=== PATIENT | female | born 1970 | race Caucasian/White ===

== ENCOUNTER 2017-01-31 08:39 | Observation (INO) | payer OTHER ==
--- NOTE | 2017-01-31 08:55 | PDOC ---
History of Present Illness - History of Present Illness Initial Comments: 01/31/17 09:27 The pt is a 46 year old female with a PMH of HTN, IBS, ischemic bowel as per pt , history of multiple CT abdomen. She presents to ED complaining of abdominal pain, vomiting and diarrhea for 3 days. The pain is located in epigastrium, radiating to RLQ, constant, 8/10, alleviated by lying on the side, aggravated by food. She also reports non bilious, non bloody vomiting and watery diarrhea, no blood, no melena. She denies fever, chills. The pt denies chest pain, palpitations, SOB, cough. She denies dysuria, increased frequency, urgency. She stopped taking her medications 3 months ago because of insurance issues. GI: Dr. Db Mera PCP: Dr. Nora Sierra <Bailee Navarro - Last Filed: 01/31/17 18:38> <Kurt Arora - Last Filed: 01/31/17 20:19> - General Chief Complaint: Pain Stated Complaint: ABD PAIN, NAUSEA, VOMITING Time Seen by Provider: 01/31/17 08:55 Past History - Past Medical History GI Disorders: Yes (IBS) HTN: Yes - Surgical History Abdominal Surgery: Yes (PARTIAL HTSTERECTOMY) Orthopedic Surgery: Yes (ARTHROSCOPY R KNEE) - Immunization History Immunization Up to Date: Yes - Psycho/Social/Smoking Cessation Hx Anxiety: No Suicidal Ideation: No Smoking Status: No Smoking History: Never smoked Number of Cigarettes Smoked Daily: 0 Cigars Per Day: 0 Hx Alcohol Use: Yes (SOCIAL) Drug/Substance Use Hx: No Substance Use Type: None Hx Substance Use Treatment: No <Bailee Navarro - Last Filed: 01/31/17 18:38> <Kurt Arora - Last Filed: 01/31/17 20:19> - Past Medical History Allergies/Adverse Reactions: Allergies Allergy/AdvReac Type Severity Reaction Status Date / Time morphine Allergy Vomiting Verified 01/31/17 08:44 Nuts Allergy Intermediate Swelling Uncoded 01/31/17 08:44 Home Medications: Ambulatory Orders Azathioprine 5 tab PO DAILY 08/02/16 Hydrochlorothiazide 25 mg PO DAILY 08/02/16 Lipase/Protease/Amylase [Paula Alfonso 5,000 Units Capsule] 1 each PO ACHS 08/02/16 Lisinopril 10 mg PO DAILY 08/02/16 Lubiprostone [Amitiza] 24 mcg PO TID 08/02/16 Pantoprazole Sodium 40 mg PO DAILY 08/02/16 Polyethylene Glycol 3350 [Miralax (For Daily Use) -] 17 gm PO BID 08/02/16 Review of Systems - Review of Systems Able to Perform ROS?: Yes Comments:: 01/31/17 09:35 REVIEW OF SYSTEMS CONSTITUTIONAL: Absent: fever, chills, diaphoresis, generalized weakness, malaise, loss of appetite, weight change HEENT: Absent: rhinorrhea, nasal congestion, throat pain, throat swelling, difficulty swallowing, mouth swelling, ear pain, eye pain, visual changes CARDIOVASCULAR: Absent: chest pain, syncope, palpitations, irregular heart rate, lightheadedness , peripheral edema RESPIRATORY: Absent: cough, shortness of breath, dyspnea with exertion, orthopnea, wheezing, stridor, hemoptysis GASTROINTESTINAL: abdominal pain, abdominal distension, nausea, vomiting, diarrhea, Absent: constipation, melena, hematochezia GENITOURINARY: Absent: dysuria, frequency, urgency, hesitancy, hematuria, flank pain, genital pain MUSCULOSKELETAL: Absent: myalgia, arthralgia, joint swelling, back pain, neck pain SKIN: Absent: rash, itching, pallor NEUROLOGIC: Absent: headache, focal weakness or paresthesias, dizziness, unsteady gait, seizure, mental status changes, bladder or bowel incontinence PSYCHIATRIC: Absent: anxiety, depression, suicidal or homicidal ideation, hallucinations. Is the patient limited [place] proficient: No <Bailee Navarro - Last Filed: 01/31/17 18:38> *Physical Exam - Vital Signs Last Vital Signs Temp Pulse Resp BP Pulse Ox 97.5 F L 90 20 132/83 97 01/31/17 08:41 01/31/17 08:41 01/31/17 08:41 01/31/17 08:41 01/31/17 08:41 - Physical Exam Comments: 01/31/17 09:38 GENERAL: The patient is awake, alert, and fully oriented, in no acute distress. HEAD: Normal with no signs of trauma. EYES: PERRL, extraocular movements intact, sclera anicteric, conjunctiva clear. No ptosis. ENT: Ears normal, nares patent, oropharynx clear without exudates, moist mucous membranes. NECK: Trachea midline, full range of motion, supple. LUNGS: Breath sounds equal, clear to auscultation bilaterally, no wheezes, no crackles, no accessory muscle use. HEART: Regular rate and rhythm, S1, S2 without murmur, rub or gallop. ABDOMEN: Obese, soft, tender to palpation in epigastrium and mild tenderness in RLQ, nondistended, normoactive bowel sounds, no guarding, no rebound, no hepatosplenomegaly, no masses. EXTREMITIES: 2+ pulses, warm, well-perfused, no edema. NEUROLOGICAL: Normal speech, no facial asymmetry, motor 5/5, gait not observed. PSYCH: Normal mood, normal affect. SKIN: Warm, dry, normal turgor, no rashes, tattoo in upper back. <Bailee Navarro - Last Filed: 01/31/17 18:38> - Vital Signs Last Vital Signs Temp Pulse Resp BP Pulse Ox 97.5 F L 64 18 137/89 100 01/31/17 08:41 01/31/17 18:08 01/31/17 18:08 01/31/17 18:08 01/31/17 18:08 <Kurt Arora - Last Filed: 01/31/17 20:19> ED Treatment Course - LABORATORY CBC & Chemistry Diagram: 01/31/17 09:42 01/31/17 09:42 <Bailee Navarro - Last Filed: 01/31/17 18:38> - LABORATORY CBC & Chemistry Diagram: 01/31/17 09:42 01/31/17 09:42 - ADDITIONAL ORDERS Additional order review: Laboratory Results 01/31/17 01/31/17 01/31/17 13:41 10:31 10:31 Sodium Potassium Chloride Carbon Dioxide Anion Gap BUN Creatinine Creat Clearance w eGFR Random Glucose Lactic Acid 0.278 L Calcium Total Bilirubin AST ALT Alkaline Phosphatase Creatine Kinase CK-MB (CK-2) Troponin I C-Reactive Protein Total Protein Albumin Lipase Serum , Qual Negative Urine Color Ltyellow Urine Appearance Clear Urine pH 5.0 Ur Specific [place] 1.020 Urine Protein Negative Urine Glucose (UA) Negative Urine Ketones Negative Urine Blood Negative Urine Nitrite Negative Urine Bilirubin Negative Urine Urobilinogen Negative Ur Leukocyte Esterase Negative 01/31/17 01/31/17 01/31/17 09:42 09:42 09:42 Sodium 139 Potassium 3.6 Chloride 103 Carbon Dioxide 25 Anion Gap 11 BUN 14 D Creatinine 1.0 Creat Clearance w eGFR 59.18 Random Glucose 80 Lactic Acid Calcium 8.6 Total Bilirubin 0.5 D AST 14 L ALT 23 D Alkaline Phosphatase 114 D Creatine Kinase 177 CK-MB (CK-2) 2.041 Troponin I < 0.02 C-Reactive Protein 0.7 H D Total Protein 6.9 Albumin 3.6 Lipase 126 Serum , Qual Urine Color Urine Appearance Urine pH Ur Specific [place] Urine Protein Urine Glucose (UA) Urine Ketones Urine Blood Urine Nitrite Urine Bilirubin Urine Urobilinogen Ur Leukocyte Esterase 01/31/17 09:42 RBC 4.46 MCV 93.8 MCHC 34.0 RDW 14.1 MPV 9.1 Neutrophils % 77.2 Lymphocytes % 10.6 D Monocytes % 10.4 H Eosinophils % 1.3 D Basophils % 0.5 - Medications Given in the ED: ED Medications Discontinued Medications Generic Name Dose Route Start Last Admin Trade Name Freq PRN Reason Stop Dose Admin Acetaminophen 650 mg 01/31/17 19:22 01/31/17 19:39 Tylenol - PO 01/31/17 19:23 650 mg ONCE ONE Administration Hydromorphone HCl 0.5 mg 01/31/17 10:45 01/31/17 11:55 Dilaudid Injection - IVPUSH 01/31/17 10:46 0.5 mg ONCE ONE Administration Hydromorphone HCl 0.5 mg 01/31/17 18:19 01/31/17 18:44 Dilaudid Injection - IVPB 01/31/17 18:20 0.5 mg ONCE ONE Administration Sodium Chloride 1,000 mls @ 1,000 mls/hr 01/31/17 12:55 01/31/17 13:33 Normal Saline - IV 01/31/17 13:54 1,000 mls/hr ONCE ONE Administration Ondansetron HCl 4 mg 01/31/17 10:45 01/31/17 11:55 Zofran Injection IVPUSH 01/31/17 10:46 4 mg ONCE ONE Administration Ondansetron HCl 4 mg 01/31/17 13:33 01/31/17 13:50 Zofran Injection IVPUSH 01/31/17 13:34 4 mg ONCE ONE Administration Ondansetron HCl 4 mg 01/31/17 18:14 01/31/17 18:43 Zofran Injection IVPUSH 01/31/17 18:15 4 mg ONCE ONE Administration <Kurt Arora - Last Filed: 01/31/17 20:19> Medical Decision Making - Medical Decision Making 01/31/17 10:49 The pt is a 46 year old female who present with similar complaints as last year , abdominal pain, N/V, diarrhea. Differential diagnosis include GERD, gastritis , gastric ulcer, duodenal ulcer, pancreatitis, colitis, IBS, ACS. WE ordered CBC, CMP, UA, US abdomen, Zofran, Dilaudid IV. 01/31/17 11:03 No elevated WBC, anemia, elevated lipase, liver enzymes. 01/31/17 15:[address] Ace. Patient has been treated for mesenteric ischemia in the past. He recommends checking lactate, ESR, CRP, and CTA abdomen. ESR and CRP elevated, LA nl, waiting tor CTA 01/31/17 15:33 US abdomen: hepatomegaly, fatty liver. Waiting for CTA results. 01/31/17 18:38 CTa results reviewed and discussed with Dr. Mina and Andreas. Dr Johns will come to assess the pt. Possible admission. <Bailee Navarro - Last Filed: 01/31/17 18:38> *DC/Admit/Observation/Transfer <Bailee Navarro - Last Filed: 01/31/17 18:38> - Discharge Dispostion Admit: Yes <Kurt Arora - Last Filed: 01/31/17 20:19> Diagnosis at time of Disposition: Enteritis, Mesenteric ischemia - Discharge Dispostion Condition at time of disposition: Fair
[2017-01-31 10:25] LABS: BASOPHIL 0.5 % (0-2.0); EOSINOPHIL 1.3 % (0-4.5); MCH 31.9 pg (25.7-33.7); MEAN CELL VOLUME 93.8 fl (80-96); MEAN PLT VOLUME 9.1 fl (7.5-11.1); NEUTROPHILS 77.2 % (42.8-82.8); PLATELET COUNT 157 K/MM3 (134-434); RDW 14.1 % (11.6-15.6); WHITE BLOOD COUNT 5.1 K/mm3 (4.0-10.0)
[2017-01-31 10:40] LABS: ALBUMIN 3.6 g/dl (3.4-5.0); BILIRUBIN,TOTAL 0.5 mg/dL (0.2-1.0); CALCIUM 8.6 mg/dL (8.5-10.1); TOT PROT 6.9 g/dl (6.4-8.2)
[2017-01-31] MEDS ORDERED: ONDANSETRON 4 MG/2 ML VIAL IVPUSH ONE ×3 (10:45→18:14)
[2017-01-31] MEDS ORDERED: HYDROmorphone HCL CARPU-JECT 1 MG/1 ML DISP.SYRIN IVPUSH ONE (10:45)
--- NOTE | 2017-01-31 10:48 | PDOC ---
Attending Attestation - Resident Resident Name: Bailee Navarro - ED Attending Attestation I have performed the following: I have examined & evaluated the patient, The case was reviewed & discussed with the resident, I agree w/resident's findings & plan, Exceptions are as noted - HPI HPI: 01/31/17 10:46 46-year-old female with history of chronic abdominal pain, had full workup with Dr. Ace, was being treated successfully for IBS but ran out of meds 3 months ago, now presents with one month of progressive recurrence of her abdominal complaints acutely worsening over the last 3 days. - Physicial Exam PE: 01/31/17 10:47 vital signs stable Well-appearing Soft and nondistended, discomfort to palpation diffusely but greatest in the left abdomen, no guarding or rebound. - Medical Decision Making 01/31/17 10:47 Patient seen and evaluated with the resident. I agree with the overall evaluation, assessment, and management with the following summary of visit: 46-year-old female with diagnosis of IBS presents with recurrence of her chronic pain in the setting of running out of her medications 3 months ago. Well -appearing, vital signs are normal, no concerning findings on physical exam. Will check basic labs and gallbladder ultrasound Given this is identical to her previous syndrome, will avoid CT imaging in this young woman Pain control, nausea control Reassess, discuss disposition with Dr. Ace 01/31/17 12:56 Labs wnl, no leukocytosis or anion gap elevation. UA clear. Discussed with Dr. Ace. Patient has been treated for presumed mesenteric ischemia in the past, raising concern for same. Recommends checking lactate, esr /crp, and CTA abdomen. Will reassess after above workup. 01/31/17 16:22 CTA abdomen with some mention of wall thickening, ? celiac artery irregularity, ? renal perfusion. ESR/CRP/Lactate normal. Will discuss dispo with Dr. Ace.
--- NOTE | 2017-01-31 11:05 | EKG ---
Test Reason : Blood Pressure : / mmHG Vent. Rate : 053 BPM Atrial Rate : 053 BPM P-R Int : 208 ms QRS Dur : 092 ms QT Int : 434 ms P-R-T Axes : 038 013 025 degrees QTc Int : 407 ms SINUS BRADYCARDIA MINIMAL VOLTAGE CRITERIA FOR LVH, MAY BE NORMAL VARIANT BORDERLINE ECG WHEN COMPARED WITH ECG OF 02-AUG-2016 10:32, NO SIGNIFICANT CHANGE WAS FOUND Confirmed by COLLIN HICKS, TRE ([id number]) on 01/31/2017 11:05:35 AM Referred By: Confirmed By:TRE POLANCO MD
[2017-01-31 11:32] LABS: URINE APPEARANCE CLEAR; URINE BILIRUBIN NEGATIVE (NEGATIVE); URINE BLOOD NEGATIVE (NEGATIVE); URINE COLOR LTYELLOW; URINE GLUCOSE (UA) NEGATIVE (NEGATIVE); URINE KETONE NEGATIVE (NEGATIVE); URINE LEUK ESTERASE NEGATIVE (NEGATIVE); URINE NITRITE NEGATIVE (NEGATIVE); URINE PROTEIN NEGATIVE (NEGATIVE); URINE UROBILINOGEN NEGATIVE E.U./dl (0.2-1.0)
[2017-01-31] MEDS ORDERED: ONDANSETRON 4 MG/2 ML VIAL ONE ×3 (11:45→18:27)
[2017-01-31] MEDS ORDERED: HYDROmorphone HCL CARPU-JECT 1 MG/1 ML DISP.SYRIN ONE ×2 (11:45→18:26)
[2017-01-31 11:52] LABS: TROPONIN I < 0.02 ng/ml (0.00-0.05)
[2017-01-31] MEDS ORDERED: SODIUM CHLORIDE 1,000 ML IV ONE (12:55)
[2017-01-31 14:23] LABS: C-REACTIVE PROTEIN 0.7 MG/DL (0.00-0.3)
[2017-01-31] MEDS ORDERED: HYDROmorphone HCL CARPU-JECT 1 MG/1 ML DISP.SYRIN IVPB ONE (18:19)
[2017-01-31] MEDS ORDERED: DEXTROSE 5%-0.45% SALINE 1,000 ML IV SCH (18:30)
[2017-01-31] MEDS ORDERED: ACETAMINOPHEN 325 MG TABLET (FP) PO ONE (19:22)
[2017-01-31] MEDS ORDERED: ACETAMINOPHEN 325 MG TABLET (FP) ONE (19:37)
[2017-01-31] MEDS ORDERED: METRONIDAZOLE 500 MG PREMIXED 100 ML IVPB ONE ×2 (19:46→20:23)
[2017-01-31] MEDS ORDERED: CEFTRIAXONE 1 GM in DEXTROSE 5%-WATER - 50 ML IVPB ONE (19:46)
[2017-01-31] MEDS ORDERED: LACTATED RINGERS SOLUTION 1,000 ML IV SCH (20:00)
--- NOTE | 2017-01-31 20:12 | PN ---
<Calli Sloan - Last Filed: 01/31/17 20:11> Teaching Attending Note Name of Resident: Danny Cotton <Sue Vasquze - Last Filed: 02/18/17 19:54> Teaching Attending Note ATTENDING PHYSICIAN STATEMENT I saw and evaluated the patient. I reviewed the resident's note and discussed the case with the resident. I agree with the resident's findings and plan as documented. SUBJECTIVE: 46 yo F presents with abdominal pain, nausea, vomiting and diarrhea for 3 days. Patient states she has constant sharp and stabbing abdominal pain rated at 8/ 10. Patient states her insurance lapsed so she went off of her medications for her IBS. She states her last colonoscopy and endoscopy were March of 2016 and they had no acute findings. Patient denies hematochezia. She states that she has mild relief immediately after a BM but the pain returns after approximately 2 minutes. Patient denies problems urinating. Denies chest pain, palpitations, headache, fever, chills and cough. PMHx: HTN, IBS, ischemic bowel as per pt, history of multiple CT abdomen Allergies: Nuts, Morphine OBJECTIVE: Last Vital Signs Temp Pulse Resp BP Pulse Ox 97.9 F 64 18 137/89 100 01/31/17 18:00 01/31/17 18:08 01/31/17 18:08 01/31/17 18:08 01/31/17 18:08 GENERAL: Awake, alert, and fully oriented, in no acute distress HEENT: Atraumatic. PERRLA, EOMI. Moist mucosa. No JVD LUNGS: No distress, speaks full sentences, clear to auscultation bilaterally HEART: Regular rate and rhythm, normal S1 and S2, no murmurs, rubs or gallops, peripheral pulses normal and equal bilaterally. ABDOMEN: Soft, tender in upper quadrants and left lower quadrant, normoactive bowel sounds. No guarding, no rebound. No masses EXTREMITIES: Normal inspection, Normal range of motion, no edema. No clubbing or cyanosis. NEUROLOGICAL: Cranial nerves II through XII grossly intact. Normal speech, normal gait, no focal sensorimotor deficits SKIN: Warm, Dry, normal turgor, no rashes or lesions noted. CBCD WBC 5.1 K/mm3 (4.0-10.0) 01/31/17 09:42 RBC 4.46 M/mm3 (3.60-5.2) 01/31/17 09:42 Hgb 14.2 GM/dL (10.7-15.3) D 01/31/17 09:42 Hct 41.8 % (32.4-45.2) 01/31/17 09:42 MCV 93.8 fl (80-96) 01/31/17 09:42 MCHC 34.0 g/dl (32.0-36.0) 01/31/17 09:42 RDW 14.1 % (11.6-15.6) 01/31/17 09:42 Plt Count 157 K/MM3 (134-434) 01/31/17 09:42 MPV 9.1 fl (7.5-11.1) 01/31/17 09:42 CMP Sodium 139 mmol/L (136-145) 01/31/17 09:42 Potassium 3.6 mmol/L (3.5-5.1) 01/31/17 09:42 Chloride 103 mmol/L (98-107) 01/31/17 09:42 Carbon Dioxide 25 mmol/L (21-32) 01/31/17 09:42 Anion Gap 11 (8-16) 01/31/17 09:42 BUN 14 mg/dL (7-18) D 01/31/17 09:42 Creatinine 1.0 mg/dL (0.55-1.02) 01/31/17 09:42 Creat Clearance w eGFR 59.18 (>60) 01/31/17 09:42 Calcium 8.6 mg/dL (8.5-10.1) 01/31/17 09:42 Total Bilirubin 0.5 mg/dL (0.2-1.0) D 01/31/17 09:42 AST 14 U/L (15-37) L 01/31/17 09:42 ALT 23 U/L (12-78) D 01/31/17 09:42 Alkaline Phosphatase 114 U/L (45-117) D 01/31/17 09:42 Total Protein 6.9 g/dl (6.4-8.2) 01/31/17 09:42 Albumin 3.6 g/dl (3.4-5.0) 01/31/17 09:42 ASSESSMENT AND PLAN: 1.) Abdominal pain and diarrhea most likely secondary to IBS/ medical records document possible Crohns -NPO -IVF -Flagyl and Ceftriaxone -Prednisone 40 mg daily -Protonix -Continue home meds -GI consult in AM -Follow stool cultures and gram stain -Dilaudid .5 mg Q 6 hours PRN DVT ppx -Admit to Med Surg Documentation prepared by Sue Vasquez, acting as medical technologist chief for Calli Sloan M.D.
[2017-01-31] MEDS ORDERED: CEFTRIAXONE 50 ML ONE (20:23)
--- NOTE | 2017-01-31 21:06 | HP ---
Addendum entered and electronically signed by Danny Cotton RES 02/01/17 06:52 : Differential diagnosis also include Crohn's in the view of prior documents. -prednisone 40 mg qd Original Note: CHIEF COMPLAINT: abd pain PCP: Dr. Melendez; GI: Dr. Ace HISTORY OF PRESENT ILLNESS: 46 y/o F w/PMH of HTN, IBS presents to ER with abd pain x 3 days. Pain is in across upper abd, worse with food, alleviated with going into a colder environment/setting, is 10/10 at its worst (for a few seconds), then comes down to 7-8/10 for 3 min. The pain has been occurring 3-4x/day over last three days. Pain is also associated with feeling flush. She has c/o 2 episodes of vomiting over the last 2 days. Both episodes had non-bloody, non-bilious vomiting. She has also had diarrhea for the last 3 days which is watery, and non -bloody. She states she has had this type of pain before and has been hospitalized 3 times in the past year for this kind of pain. Denies weight loss. She has been seeing Dr. Ace and has had multiple EGD/Colonoscopies. Latest EGD & colonoscopy was last year (March 2016) and no pathology was noted as per pt. She says UC and crohns have been ruled out in the past and she has been diagnosed with IBS. She has not had her medications for the last 3 months because of insurance issues but was finally able to work out insurance and got her medications for the first time yesterday in 3 months and took them as prescribed yesterday. Currently she feels "much better". She denies CP, SOB. Zenpep is listed as a home med, which she says was stopped by Dr. Ace and she is no longer taking this medication. ER course was notable for: (1) CTA abd, US abd (2) (3) PAST MEDICAL HISTORY: HTN, IBS PAST SURGICAL HISTORY: Partial hysterectomy, R knee arthroscopy Social History: Smoking: denies Alcohol: socially Drugs: denies Family History: HTN but no GI medical history in family. Allergies morphine Allergy (Verified 01/31/17 08:44) Vomiting Nuts Allergy (Intermediate, Uncoded 01/31/17 08:44) Swelling HOME MEDICATIONS: Home Medications Medication Instructions Recorded Azathioprine 5 tab PO DAILY 08/02/16 Hydrochlorothiazide 25 mg PO DAILY 08/02/16 Lisinopril 10 mg PO DAILY 08/02/16 Lubiprostone [Amitiza] 24 mcg PO TID 08/02/16 Pantoprazole Sodium 40 mg PO DAILY 08/02/16 Polyethylene Glycol 3350 [Miralax 17 gm PO BID 08/02/16 (For Daily Use) -] REVIEW OF SYSTEMS CONSTITUTIONAL: Absent: fever, chills, diaphoresis, generalized weakness, malaise, loss of appetite, weight change HEENT: Absent: rhinorrhea, nasal congestion, throat pain, throat swelling, difficulty swallowing, mouth swelling, ear pain, eye pain, visual changes CARDIOVASCULAR: Absent: chest pain, syncope, palpitations, irregular heart rate, lightheadedness , peripheral edema RESPIRATORY: Absent: cough, shortness of breath, dyspnea with exertion, orthopnea, wheezing, stridor, hemoptysis GASTROINTESTINAL: abd pain, nausea, vomiting, diarrhea Absent: abdominal distension, constipation, melena, hematochezia GENITOURINARY: Absent: dysuria, frequency, urgency, hesitancy, hematuria, flank pain, genital pain MUSCULOSKELETAL: Absent: myalgia, arthralgia, joint swelling, back pain, neck pain SKIN: Absent: rash, itching, pallor HEMATOLOGIC/IMMUNOLOGIC: Absent: easy bleeding, easy bruising, lymphadenopathy, frequent infections ENDOCRINE: Absent: unexplained weight gain, unexplained weight loss, heat intolerance, cold intolerance NEUROLOGIC: Absent: headache, focal weakness or paresthesias, dizziness, unsteady gait, seizure, mental status changes, bladder or bowel incontinence PSYCHIATRIC: Absent: anxiety, depression, suicidal or homicidal ideation, hallucinations. PHYSICAL EXAMINATION Vital Signs - 24 hr 01/31/17 01/31/17 08:41 18:08 Temperature 97.5 F L Pulse Rate 90 Pulse Rate [ 64 Radial] Respiratory 20 18 Rate Blood Pressure 132/83 Blood Pressure 137/89 [Right Arm] O2 Sat by Pulse 97 100 Oximetry (%) GENERAL: Awake, alert, and fully oriented, in no acute distress. HEAD: Normal with no signs of trauma. EYES: extraocular movements intact, sclera anicteric, conjunctiva clear. No lid lag. EARS, NOSE, THROAT: Ears normal, nares patent, oropharynx clear without exudates. Moist mucous membranes. NECK: Normal range of motion LUNGS: Breath sounds equal, clear to auscultation bilaterally. No wheezes, and no crackles. No accessory muscle use. HEART: Regular rate and rhythm, normal S1 and S2 without murmur, rub or gallop. ABDOMEN: Soft, mild RLQ tenderness, not distended, normoactive bowel sounds, no guarding, no rebound, no masses. MUSCULOSKELETAL: Normal range of motion at all joints. No bony deformities or tenderness. LOWER EXTREMITIES: warm, well-perfused. No calf tenderness. No peripheral edema. NEUROLOGICAL: Normal speech. Gait not observed. PSYCHIATRIC: Cooperative. Good eye contact. Appropriate mood and affect. SKIN: Warm, dry, normal turgor, no rashes or lesions noted, normal capillary refill. Laboratory Results - last 24 hr 01/31/17 01/31/17 01/31/17 09:42 09:42 09:42 WBC 5.1 RBC 4.46 Hgb 14.2 D Hct 41.8 MCV 93.8 MCHC 34.0 RDW 14.1 Plt Count 157 MPV 9.1 Neutrophils % 77.2 Lymphocytes % 10.6 D Monocytes % 10.4 H Eosinophils % 1.3 D Basophils % 0.5 ESR Sodium 139 Potassium 3.6 Chloride 103 Carbon Dioxide 25 Anion Gap 11 BUN 14 D Creatinine 1.0 Creat Clearance w eGFR 59.18 Random Glucose 80 Lactic Acid Calcium 8.6 Total Bilirubin 0.5 D AST 14 L ALT 23 D Alkaline Phosphatase 114 D Creatine Kinase CK-MB (CK-2) Troponin I C-Reactive Protein 0.7 H D Total Protein 6.9 Albumin 3.6 Lipase 126 Serum , Qual Urine Color Urine Appearance Urine pH Ur Specific Golden Urine Protein Urine Glucose (UA) Urine Ketones Urine Blood Urine Nitrite Urine Bilirubin Urine Urobilinogen Ur Leukocyte Esterase 01/31/17 01/31/17 01/31/17 09:42 10:31 10:31 WBC RBC Hgb Hct MCV MCHC RDW Plt Count MPV Neutrophils % Lymphocytes % Monocytes % Eosinophils % Basophils % ESR Sodium Potassium Chloride Carbon Dioxide Anion Gap BUN Creatinine Creat Clearance w eGFR Random Glucose Lactic Acid Calcium Total Bilirubin AST ALT Alkaline Phosphatase Creatine Kinase 177 CK-MB (CK-2) 2.041 Troponin I < 0.02 C-Reactive Protein Total Protein Albumin Lipase Serum , Qual Negative Urine Color Ltyellow Urine Appearance Clear Urine pH 5.0 Ur Specific Golden 1.020 Urine Protein Negative Urine Glucose (UA) Negative Urine Ketones Negative Urine Blood Negative Urine Nitrite Negative Urine Bilirubin Negative Urine Urobilinogen Negative Ur Leukocyte Esterase Negative 01/31/17 01/31/17 13:41 13:41 WBC RBC Hgb Hct MCV MCHC RDW Plt Count MPV Neutrophils % Lymphocytes % Monocytes % Eosinophils % Basophils % ESR 11 Sodium Potassium Chloride Carbon Dioxide Anion Gap BUN Creatinine Creat Clearance w eGFR Random Glucose Lactic Acid 0.278 L Calcium Total Bilirubin AST ALT Alkaline Phosphatase Creatine Kinase CK-MB (CK-2) Troponin I C-Reactive Protein Total Protein Albumin Lipase Serum , Qual Urine Color Urine Appearance Urine pH Ur Specific Golden Urine Protein Urine Glucose (UA) Urine Ketones Urine Blood Urine Nitrite Urine Bilirubin Urine Urobilinogen Ur Leukocyte Esterase Imaging: CTA abd: 01/31/17: Impression: In comparison to a prior CT study of 04/26/2015 interval development of mild somewhat subtle small bowel wall thickening is seen within the right mid abdomen with associated mild mesenteric edema - ? enteritis, ischemia, vasculitis. There has been interval resolution of concentric wall edema involving the descending colon and distal ileum. On the current study there is apparent mild subtle nonspecific wall irregularity of the celiac artery trunk - ? arteritis/vasculitis. The current exam demonstrates interval development of focal cortical hypodensity within the upper and lower poles left kidney which may be on the basis of acute ischemia or acute pyelonephritis. Correlate clinically. The main renal arteries appear patent bilaterally. A small to moderate amount of free fluid is seen within the pelvis. A 5.2 cm septated right adnexal cyst is noted. Correlation with sonography is suggested. US abd: 01/31/17: IMPRESSION: Hepatomegaly and diffuse fatty infiltration of the liver. Active Medications Azathioprine (Imuran -) 250 mg PO DAILY [place] Ceftriaxone Sodium (Rocephin 1gm Ivpb (Pre-Docked)) 1 gm IVPB DAILY [place] Hydromorphone HCl (Dilaudid Injection -) 0.5 mg IVPB Q6H PRN PRN Reason: PAIN Last Admin: 02/01/17 00:29 Dose: 0.5 mg Metronidazole (Flagyl 500mg Premixed Ivpb -) 100 mls @ 100 mls/hr IVPB Q8H-IV [place] Last Admin: 02/01/17 02:31 Dose: 100 mls/hr Dextrose/Sodium Chloride (D5-Ns -) 1,000 mls @ 100 mls/hr IV ASDIR [facility] Last Admin: 02/01/17 00:30 Dose: 100 mls/hr Pantoprazole Sodium (Protonix 40mg Ivpb (Pre-Docked)) 40 mg IVPB DAILY [facility] Last Admin: 02/01/17 00:31 Dose: 40 mg ASSESSMENT/PLAN: 46 y/o F w/PMH of HTN, IBS presents to ER with abd pain x 3 days. Admitted in obs. -Abdominal pain secondary to IBS flare vs ischemic bowel vs infectious etiology -CTA abd results as noted aboev -wbc wnl, presented w/tachycardia, currently RRR, lactic acid 0.278, CRP elevated at 0.7 -stool cultures, stool gram stain -flagyl iv 500 q8h -protonix iv 40 qd -nausea: zofran 4mg iv q6h; abdominal cramps: dicyclomine 20mg q6h prn for muscle/abd cramps -D5-NS @ 100ml/hr -pain control with dilaudid 0.5 mg iv q6h prn -GI consulted (Dr. Ace) -npo except for meds -c/w home med of azathioprine 5 tab qd; amitiza and miralax on hold for diarrhea -HTN -will hold anti-hypertensives since BP is well controlled currently. restart home meds if elevated. -Hepatomegaly -LFTs wnl -DVT ppx -SCDs -FEN -D5-NS @ 100ml/hr -electrolytes wnl -NPO except for meds -Dispo: -admit for obs Problem List - Problem (1) Hypertension Code(s): I10 - ESSENTIAL (PRIMARY) HYPERTENSION (2) IBS (irritable bowel syndrome) Code(s): K58.9 - IRRITABLE BOWEL SYNDROME WITHOUT DIARRHEA (3) Mesenteric ischemia Code(s): K55.9 - VASCULAR DISORDER OF INTESTINE, UNSPECIFIED (4) History of IBS Code(s): Z87.19 - PERSONAL HISTORY OF OTHER DISEASES OF THE DIGESTIVE SYSTEM (5) Abdominal pain Code(s): R10.9 - UNSPECIFIED ABDOMINAL PAIN Qualifiers: Abdominal location: left lower quadrant Qualified Code(s): R10.32 - Left lower quadrant pain (6) Diarrhea Code(s): R19.7 - DIARRHEA, UNSPECIFIED Visit type - Emergency Visit Emergency Visit: Yes ED Registration Date: 01/31/17 Care time: The patient presented to the Emergency Department on the above date and was hospitalized for further evaluation of their emergent condition. - New Patient This patient is new to me today: Yes Date on this admission: 02/01/17 - Critical Care Critical Care patient: No
[2017-01-31] MEDS ORDERED: PANTOPRAZOLE SODIUM 40 MG in SODIUM CHLORIDE 100 ML IVPB SCH (21:45)
[2017-01-31] MEDS ORDERED: HYDROmorphone HCL CARPU-JECT 1 MG/1 ML DISP.SYRIN IVPB PRN (22:07)
[2017-01-31] MEDS ORDERED: DEXTROSE 5%-NORMAL SALINE 1,000 ML IV SCH (22:15)
[2017-02-01] MEDS: PANTOPRAZOLE SODIUM 40 MG/100 ML PRE-DOCKED IVPB SCH ×2 (00:31→13:29)
[2017-02-01] MEDS: METRONIDAZOLE 500 MG PREMIXED 100 ML IVPB SCH ×3 (02:31→17:46)
[2017-02-01 03:40] VITALS: BMI 38.9
[2017-02-01] MEDS ORDERED: DICYCLOMINE HCL 10 MG CAPSULE PO PRN (06:44)
[2017-02-01 08:23] LABS: MCH 31.8 pg (25.7-33.7); MCHC 33.5 g/dl (32.0-36.0); MEAN CELL VOLUME 95.1 fl (80-96); PLATELET COUNT 163 K/MM3 (134-434); RDW 13.8 % (11.6-15.6); WHITE BLOOD COUNT 4.1 K/mm3 (4.0-10.0)
[2017-02-01] MEDS ORDERED: ACETAMINOPHEN 325 MG TABLET (FP) PO ONE ×2 (08:53→20:00)
[2017-02-01 09:02] LABS: ALBUMIN 3.6 g/dl (3.4-5.0); CALCIUM 8.3 mg/dL (8.5-10.1); CREATININE 0.9 mg/dL (0.55-1.02)
[2017-02-01] MEDS: azaTHIOprine 50 MG TABLET PO SCH (09:17)
[2017-02-01] MEDS: predniSONE 20 MG TABLET (UD) PO SCH (09:17)
[2017-02-01] MEDS ORDERED: cefTRIAXone 1 GM/50 ML BAG (PRE-DOCKED) IVPB SCH (10:00)
[2017-02-01] MEDS ORDERED: PANTOPRAZOLE SODIUM 40 MG in SODIUM CHLORIDE 100 ML IVPB SCH (10:00)
[2017-02-01] MEDS ORDERED: CEFTRIAXONE 1 GM in DEXTROSE 5%-WATER - 50 ML IVPB SCH (10:00)
--- NOTE | 2017-02-01 15:30 | PN ---
Teaching Attending Note Name of Resident: Charity Guy ATTENDING PHYSICIAN STATEMENT I saw and evaluated the patient. I reviewed the resident's note and discussed the case with the resident. I agree with the resident's findings and plan as documented. SUBJECTIVE:states that pain has improved, only experiences on palpation. no repeated loose stools since admission. states that she stopped taking her medication 3 months ago due to lapse in insurance. has been controlled previously. very limited on what shes able to eat because of abdominal pain is induced with meats/dairy/grains. states she has mesenteric ischemia and that she has been r/o for Crohns. OBJECTIVE: Last Vital Signs Temp Pulse Resp BP Pulse Ox 98.2 F 74 18 120/72 96 02/01/17 13:31 02/01/17 13:31 02/01/17 13:31 02/01/17 13:31 02/01/17 09:00 general NAD CV S1 S2 RRR no murmur/rub/gallop abdomen soft suprapubic and RLQ tenderness normoactive BS. no rashes or pupura noted ASSESSMENT AND PLAN: 46yo F with PMH HTN and chronic mesenteric ischemia presented to the ER and was admitted for further evaluation of their emergent condition 1. Abdominal pain- low concern for acute colitis as only mild bowel wall swelling vs vasculitis. negative autoimmune workup last year. unsure benefit of repeating full workup. ESR WNL so less likely. started on Flagyl/ceftriaxone and prednisone with improvement. will give trial of clear liquids to see if tolerated. stool cx pending. GI consulted will wait on their input as she is well know to their service. re-started on home medications. pain and nausea control 2. DVT ppx- start hep sq
[2017-02-01] MEDS ORDERED: DEXTROSE 5%-NORMAL SALINE 1,000 ML IV SCH (15:46)
--- NOTE | 2017-02-01 19:46 | CON.GI ---
Consult Consult Specialty:: gastroenterology Referred by:: hospitalist Reason for Consultation:: abdominal pain - History of Present Illness History of Present Illness: 46 y/o female with PMH of possible Crohn disease of the small bowel was doing well until she ran out of Immuran because of insurance problems. She never had an enteroscopy because of insurance problems. Because of recurrent admissions with similar presentation of sevre abdominal pain and thickenning of terminal ileum, she was treated empirically with Prednisone and immuran. Hypercoaguable work up is negative. Since starting treatment her quality of life improved. The patient was admitted with possible mesenteric ischemia by [facility]. Overnight, abdominal pain diarrhea, nausea and vomiting resolved Of note she also was noted to have 5cm adnexal cyst. - Past Medical History Cardio/Vascular: Yes: HTN Gastrointestinal: Yes: Crohn's Disease, Irritable Bowel Disease, Other ( abdominal pains and thickening of small bowel in mid abdomen and terminal ileum on prior CT scans) Renal/: Yes: Hematuria - Past Surgical History Past Surgical History: Yes: Hysterectomy - Alcohol/Substance Use Hx Alcohol Use: Yes (SOCIAL) History of Substance Use: reports: None - Smoking History Smoking history: Never smoked Aproximately how many cigarettes per day: 0 - Social History ADL: Independent History of Recent Travel: No Home Medications - Allergies Allergies/Adverse Reactions: Allergies Allergy/AdvReac Type Severity Reaction Status Date / Time morphine Allergy Vomiting Verified 01/31/17 08:44 Nuts Allergy Intermediate Swelling Uncoded 01/31/17 08:44 - Home Medications Home Medications: Ambulatory Orders Azathioprine 5 tab PO DAILY 08/02/16 Hydrochlorothiazide 25 mg PO DAILY 08/02/16 Lisinopril 10 mg PO DAILY 08/02/16 Lubiprostone [Amitiza] 24 mcg PO TID 08/02/16 Pantoprazole Sodium 40 mg PO DAILY 08/02/16 Polyethylene Glycol 3350 [Miralax (For Daily Use) -] 17 gm PO BID 08/02/16 Family Disease History - Family Disease History Family Disease History: Diabetes: Father, Other: Mother (ulcerative colitis, multiple sclerosis), Brother (schizophrenia,autism-2 brothers) Physical Exam-GI Vital Signs: Vital Signs Temperature 97.6 F 02/01/17 17:00 Pulse Rate 80 02/01/17 17:00 Respiratory Rate 18 02/01/17 17:00 Blood Pressure 122/76 02/01/17 17:00 O2 Sat by Pulse Oximetry (%) 96 02/01/17 17:00 Constitutional: Yes: Well Nourished, Poor Hygeine HENT: Yes: Atraumatic Neck: Yes: Supple Cardiovascular: Yes: Regular Rate and Rhythm Respiratory: Yes: CTA Bilaterally ...Palpate: Yes: Soft, Tenderness (--right lower quadrant). No: Firm/Rigid, Guarding, Hepatomegaly, Mass, Pulsatile Mass, Splenomegaly Labs: CBC, BMP 02/01/17 06:30 02/01/17 06:30 Hepatic Panel Total Bilirubin 0.5 mg/dL (0.2-1.0) D 01/31/17 09:42 AST 14 U/L (15-37) L 01/31/17 09:42 ALT 23 U/L (12-78) D 01/31/17 09:42 Alkaline Phosphatase 114 U/L (45-117) D 01/31/17 09:42 Albumin 3.6 g/dl (3.4-5.0) 02/01/17 06:30 Problem List - Problems (1) Crohn disease Assessment/Plan: vs idiopathic enteritis vs mesenteric ischemia R> await surgical consult adnexal cyst--gynecology consult advance diet maintain on Immuran 250 mg daily Prednisone 40mg daily made aware to follow-up in 1 week 6TGN and 6 mmpn level as an outpatient Code(s): K50.90 - CROHN'S DISEASE, UNSPECIFIED, WITHOUT COMPLICATIONS
[2017-02-01] MEDS: HEPARIN NA (PORCINE) 5,000 UNITS/ML 1ML VIAL SQ SCH (22:12)
[2017-02-02] MEDS: METRONIDAZOLE 500 MG PREMIXED 100 ML IVPB SCH ×2 (01:29→09:18)
[2017-02-02] MEDS: HEPARIN NA (PORCINE) 5,000 UNITS/ML 1ML VIAL SQ SCH (09:20)
[2017-02-02] MEDS: predniSONE 20 MG TABLET (UD) PO SCH (09:20)
[2017-02-02] MEDS: azaTHIOprine 50 MG TABLET PO SCH (09:21)
[2017-02-02] MEDS ORDERED: PANTOPRAZOLE 40 MG TABLET (FP) PO SCH (10:30)
--- NOTE | 2017-02-02 11:25 | DS ---
Physical Exam: SUBJECTIVE: Patient seen and examined, tolerated regular diet, one soft BM this morning, no blood noted. Still with abdominal tenderness, mostly mid epigastric and bilateral lower quadrants. OBJECTIVE: Vital Signs Period Temp Pulse Resp BP Sys/Tucker Pulse Ox Last 24 Hr 97.6 F-98.4 F 57-80 18-20 120-139/72-76 96-96 PHYSICAL EXAM GENERAL: The patient is awake, alert, and fully oriented, in no acute distress. HEAD: Normal with no signs of trauma. EYES: PERRL, extraocular movements intact, sclera anicteric, conjunctiva clear. ENT: Ears normal, nares patent, oropharynx clear without exudates, moist mucous membranes. NECK: Trachea midline, full range of motion, supple. LUNGS: Breath sounds equal, clear to auscultation bilaterally, no wheezes, no crackles, no accessory muscle use. HEART: Regular rate and rhythm, S1, S2 without murmur, rub or gallop. ABDOMEN: Soft, nontender, nondistended, normoactive bowel sounds, no guarding, no rebound, no hepatosplenomegaly, no masses. EXTREMITIES: 2+ pulses, warm, well-perfused, no edema. NEUROLOGICAL: Cranial nerves II through XII grossly intact. Normal speech, gait not observed. PSYCH: Normal mood, normal affect. SKIN: Warm, dry, normal turgor, no rashes or lesions noted. Imaging: CTA abd: 01/31/17: Impression: In comparison to a prior CT study of 04/26/2015 interval development of mild somewhat subtle small bowel wall thickening is seen within the right mid abdomen with associated mild mesenteric edema - ? enteritis, ischemia, vasculitis. There has been interval resolution of concentric wall edema involving the descending colon and distal ileum. On the current study there is apparent mild subtle nonspecific wall irregularity of the celiac artery trunk - ? arteritis/vasculitis. The current exam demonstrates interval development of focal cortical hypodensity within the upper and lower poles left kidney which may be on the basis of acute ischemia or acute pyelonephritis. Correlate clinically. The main renal arteries appear patent bilaterally. A small to moderate amount of free fluid is seen within the pelvis. A 5.2 cm septated right adnexal cyst is noted. Correlation with sonography is suggested. US abd: 01/31/17: IMPRESSION: Hepatomegaly and diffuse fatty infiltration of the liver. LABS CBC, BMP 02/01/17 06:30 02/01/17 06:30 HOSPITAL COURSE: Date of Admission:01/31/17 Date of Discharge: 02/02/17 This is a 46 year old female with a past medical history of hypertension, irritable bowel syndrome,(constipation predominant), presented with a 3 day history of diffuse abdominal tenderness, vomiting and diarrhea, non-bloody and non bilious x2. Patient also presented with tachycardia, no leukocytosis, lactic acid wnl, crp elevated, esr wnl. Stool cultures sent, all negative. ER course was notable for CT abdomen indicating possible mesenteric ischemia, impression of imaging listed above. She was placed on prophylactic antibiotics IV ceftriaxone and flagyl. Dr. Ace, her maintenance mechanic was consulted, recommended continue of home medications, azathioprine. Patient was not taking her regular prescribed medications due to insurance change for the past month. Her condition improved, diet advanced as tolerated. Advised to follow up with Dr. Ace with in a week to evaluate further causes of her condition, including evaluation for irritable bowel disease. Of note, abdominal ultrasound did show hepatomegaly, liver enzymes were normal, most likely related to obesity and fatty liver. Transvaginal US did show large right ovarian cyst with septation. Patient is to follow up with Dr. Miranda for further evalutation. Patient was normotensive throughout visit, home blood pressure mediations were held. Minutes to complete discharge: 35 Discharge Summary Reason For Visit: ENTERITIS Current Active Problems Crohn disease (Acute) DVT prophylaxis (Acute) Hypertension (Acute) Intractable abdominal pain (Acute) Mesenteric ischemia (Acute) IBS (irritable bowel syndrome) (Chronic) Condition: Improved - Instructions Diet, Activity, Other Instructions: Ms. Penaloza, we would like you to follow up with Dr. Ace with in the next week regarding your gastrointestinal issues for further evaluation. For now please we would like you to complete your antibiotic course. continue to take the antibiotics until completed, even if your symptoms have resolved. Eat a low fiber diet. Your blood pressure medications have been held during your hospital stay. Your blood pressure has been stable while you been here and advise to continue to hold them at this time. Continue blood pressure monitoring with your doctor. We would also to like you to follow up with Communications Coordinator to further evaluate your ovarian cyst with in one week. If you experience any worsening of symptoms including persistent nausea, vomiting, abdominal pain, fevers, please return to the emergency room. Referrals: Carlos Ace MD [Staff Physician] - 1 Week Gabriel Miranda MD [Staff Physician] - 1 Week Disposition: HOME - Home Medications Comprehensive Discharge Medication List: Ambulatory Orders Polyethylene Glycol 3350 [Miralax 119 gm Btl -] 17 gm PO BID 08/02/16 Azathioprine 50 mg PO DAILY #35 tab 02/02/17 Hydrochlorothiazide 25 mg PO DAILY #30 tab 02/02/17 Lisinopril 10 mg PO DAILY #30 tab 02/02/17 Lubiprostone [Amitiza] 24 mcg PO TID #21 cap 02/02/17 Metronidazole 500 mg PO DAILY #2 tablet 02/02/17 Pantoprazole Sodium 40 mg PO DAILY #14 tablet 02/02/17 Prednisone [Deltasone -] 40 mg PO DAILY #14 tablet 02/02/17 This patient is new to me today: No Emergency Visit: Yes ED Registration Date: 01/31/17 Care time: The patient presented to the Emergency Department on the above date and was hospitalized for further evaluation of their emergent condition. Critical Care patient: No - Discharge Referral Referred to [facility] No
--- NOTE | 2017-02-02 12:17 | PN ---
Teaching Attending Note Name of Resident: Charity Guy ATTENDING PHYSICIAN STATEMENT I saw and evaluated the patient. I reviewed the resident's note and discussed the case with the resident. I agree with the resident's findings and plan as documented. SUBJECTIVE:pain has significantly improved. tolerating regular diet, 1 soft BM, no blood or melena since admission. denies CP, SOB, fever, chills, N/V/C/D OBJECTIVE: Last Vital Signs Temp Pulse Resp BP Pulse Ox 97.9 F 74 20 123/72 96 02/02/17 02:00 02/02/17 02:00 02/02/17 02:00 02/02/17 02:00 02/02/17 01:00 general NAD CV S1 S2 RRR no murmur/rub/gallop abdomen soft RLQ and epigastric tenderness normoactive BS. no rashes or pupura noted, obese ASSESSMENT AND PLAN: 46yo F with PMH HTN and chronic mesenteric ischemia presented to the ER and was admitted for further evaluation of their emergent condition 1. Abdominal pain- possible chrons vs chronic mesenteric ischemia. now re- started on home medications with improvement. tolerating diet. will d/c ceftriaxone. complete 5 day course of Flagyl. cont steroids until follow up with GI as outpatient. low fiber diet 2. R ovarian cyst- DIRECTOR OF PATIENT SAFETY consulted if intervention required. informed that this can be followed as outpatient 3. HTN- BP controlled here off medications, will continue to hold 4. d/c home with close follow up with GI
[2017-02-02 13:54] VITALS: BP 146/82; PULSE 83; TEMP 98.8
== END 2017-02-02 13:54 | disposition home or self-care (01) ==
LOC: JER 08:39 → JERBED 20:19 → INTOOBSV 20:19 → J5S 23:39
PROVIDERS: ADMIT Internal Medicine; ATTEND Internal Medicine
DX: K50.90 Crohn's disease, unspecified, without complications (principal); I10 Essential (primary) hypertension; R16.0 Hepatomegaly, not elsewhere classified; R10.32 Left lower quadrant pain; R00.0 Tachycardia, unspecified; N83.201 Unspecified ovarian cyst, right side; K55.9 Vascular disorder of intestine, unspecified
CPT/HCPCS: 36415; 74174-TC; 76705-TC; 76830-TC; 80048; 80053; 81003; 82040; 82550; 82553; 83605; 83690; 84484; 84703; 85025; 85027; 85651; 86140; 86304; 87045; 87046; 87205; 93005; 93010; 99284-25; G0378; J1644

== ENCOUNTER 2017-04-17 16:34 | Emergency (ER) | payer OTHER ==
[2017-04-17] MEDS ORDERED: ONDANSETRON *ODT* 4 MG TABLET SL ONE (16:57)
[2017-04-17 16:59] VITALS: BMI 39.1
--- NOTE | 2017-04-17 16:59 | PDOC ---
Rapid Medical Evaluation Time Seen by Provider: 04/17/17 16:55 Medical Evaluation: Allergies Allergy/AdvReac Type Severity Reaction Status Date / Time morphine Allergy Vomiting Verified 01/31/17 08:44 Nuts Allergy Intermediate Swelling Uncoded 01/31/17 08:44 I have performed a brief in-person evaluation of this patient. The patient presents with a chief complaint of: upper and lower abdominal pain since this morning with nausea. Pt has history of IBS and ischemic bowel syndrome. GI doctor is Dr. Ace. Pertinent physical exam findings: Epigastric and suprapubic TTP. No rebound , guarding or rigidity. I have ordered the following: hcg, UA, sl zofran The patient will proceed to the ED for further evaluation.
[2017-04-17 17:27] LABS: URINE APPEARANCE CLOUDY; URINE BILIRUBIN NEGATIVE (NEGATIVE); URINE BLOOD NEGATIVE (NEGATIVE); URINE COLOR YELLOW; URINE GLUCOSE (UA) NEGATIVE (NEGATIVE); URINE KETONE NEGATIVE (NEGATIVE); URINE NITRITE NEGATIVE (NEGATIVE); URINE PROTEIN NEGATIVE (NEGATIVE); URINE UROBILINOGEN NEGATIVE E.U./dl (0.2-1.0)
[2017-04-17 17:52] LABS: URINE LEUK ESTERASE TRACE (NEGATIVE)
[2017-04-17] MEDS ORDERED: KETOROLAC TROMETHAMINE 30 MG/1 ML VIAL IVPUSH ONE (18:02)
--- NOTE | 2017-04-17 18:02 | PDOC ---
History of Present Illness - General Chief Complaint: Pain Stated Complaint: STOMACH PAIN Time Seen by Provider: 04/17/17 16:55 History Source: Patient Exam Limitations: No Limitations - History of Present Illness Initial Comments: 04/17/17 18:01 This is a 46 year old female with a past medical history of IBS (constipation predominant), hemorrhoids, HTN, recently hospitalized 01/31 for abd pain and f/u for chrohns vs mesenteric ischemia vs idiopathic enteritis, who presents due to diffuse abdominal pain and nausea that sharted this afternoon. pain has been constant, 7/10, most severe in periumbilical and epigastric region, sharp, nonradiating, w/o inciting, aggravating or alleviating factors. She had a solid brown bm streaked with bright red blood today (plenty of blood on first wipe and trace on second wipe. The hematochezia has not occurred in years but the abd pain is identical to previous admission although less severe. She denies vomiting, f/c, diarrhea or constipation. She has not followed up with Dr Ace since last d.c but has apt with him in a week and a half. She has been compliant with her immuran and prednisone. No recent dining in new places and no sick contacts. Last admission CT abdomen indicated possible mesenteric ischemia. She had had an unremarkable EGD and colonoscopy 1.5 yrs ago. She did f /u with OBGYN and was told nothing of acuity. She denies h/a, chest pain, sob, cough, dysuria, extremity pain, rash. PCP Nora Ace 04/17/17 18:08 Past History - Past Medical History Allergies/Adverse Reactions: Allergies Allergy/AdvReac Type Severity Reaction Status Date / Time morphine Allergy Vomiting Verified 04/17/17 16:59 Nuts Allergy Intermediate Swelling Uncoded 04/17/17 16:59 Home Medications: Ambulatory Orders Polyethylene Glycol 3350 [Miralax 119 gm Btl -] 17 gm PO BID 08/02/16 Azathioprine 250 mg PO DAILY #35 tab 02/02/17 Lubiprostone [Amitiza] 24 mcg PO TID #21 cap 02/02/17 Metronidazole 500 mg PO Q8H #6 tablet 02/02/17 Pantoprazole Sodium 40 mg PO DAILY #14 tablet 02/02/17 Prednisone [Deltasone -] 40 mg PO DAILY #14 tablet 02/02/17 GI Disorders: Yes (IBS) HTN: Yes - Surgical History Abdominal Surgery: Yes (PARTIAL HTSTERECTOMY) Orthopedic Surgery: Yes (ARTHROSCOPY R KNEE) - Immunization History Immunization Up to Date: Yes - Psycho/Social/Smoking Cessation Hx Anxiety: No Suicidal Ideation: No Smoking Status: No Smoking History: Never smoked Number of Cigarettes Smoked Daily: 0 Cigars Per Day: 0 Information on smoking cessation initiated: No Hx Alcohol Use: Yes (SOCIAL) Drug/Substance Use Hx: No Substance Use Type: None Hx Substance Use Treatment: No Review of Systems - Review of Systems Able to Perform ROS?: Yes Is the patient limited Nepalese proficient: No Constitutional: No: Chills, Fever, Weakness HEENTM: No: Nose Congestion, Throat Pain Respiratory: No: Cough, Shortness of Breath, Hemoptysis Cardiac (ROS): No: Chest Pain, Edema, Irregular Heart Rate, Lightheadedness, Palpitations, Syncope ABD/GI: Yes: Blood Streaked Bowels, Nausea, Rectal Bleeding, Abdominal cramping. No: Abdominal Distended, Diarrhea, Vomiting : No: Dysuria, Flank Pain Musculoskeletal: No: Back Pain, Muscle Pain Integumentary: No: Bruising, Dryness, Erythema Neurological: No: Headache, Numbness, Paresthesia Psychiatric: No: Anxiety, Depression Endocrine: No: Unexplained Weight Gain, Unexplained Weight Loss Hematologic/Lymphatic: No: Anemia, Blood Clots, Easy Bleeding, Easy Bruising, Swollen Glands All Other Systems: Reviewed and Negative *Physical Exam - Vital Signs Last Vital Signs Temp Pulse Resp BP Pulse Ox 98.3 F 81 18 148/84 100 04/17/17 16:55 04/17/17 16:55 04/17/17 16:55 04/17/17 16:55 04/17/17 16:55 - Physical Exam Comments: 04/17/17 18:19 GENERAL: NAD, AAOX3 HEENT: PERRLA EOMI, NO SCLERAL ICTERUS, CONJUNCTIVA CLEAR PULM: CTA B/L CV:RRR S1S2 GI:SOFT, DIFFUSELY TENDER ESPECIALLY EPIGASTRIC W VOLUNTARY GUARDING, NO REBOUND , MILD SPLENOMEGALY, + NORMAL BOWEL SOUNDS RECTAL: GOOD SPHINCTER TONE, EMPTY VAULT, NO BLOOD, NO LESIONS, VERY SMALL HEMORRHOIDS NEURO:CN GROSSLY INTACT SKIN:WARM, DRY MUSCULOSKELETAL: NO CALF TENDERNESS OR EDEMA ED Treatment Course - LABORATORY CBC & Chemistry Diagram: 04/17/17 18:47 04/17/17 18:47 - ADDITIONAL ORDERS Additional order review: Laboratory Results 04/17/17 17:15 Urine Color Yellow Urine Appearance Cloudy Urine pH 5.0 Urine Protein Negative Urine Glucose (UA) Negative Urine Ketones Negative Urine Blood Negative Urine Nitrite Negative Urine Bilirubin Negative Urine Urobilinogen Negative Ur Leukocyte Esterase Trace H Urine HCG, Qual Negative - Medications Given in the ED: ED Medications Discontinued Medications Generic Name Dose Route Start Last Admin Trade Name Freq PRN Reason Stop Dose Admin Ondansetron HCl 4 mg 04/17/17 16:57 04/17/17 17:02 Zofran Odt - SL 04/17/17 16:58 4 mg ONCE ONE Administration Medical Decision Making - Medical Decision Making 04/17/17 18:23 Patient presents with abd pain similar to last admission but less severe as well as nausea x 1 d and blood streaked bmx1, afebrile, hemodynamically stable. Ordered cbc w diff, cmp, lipase, ua, preg test Analgesia, zofran ordered 04/17/17 18:25 04/17/17 18:34 UA unremarkable, no evidence of UTI. awaiting further labs *DC/Admit/Observation/Transfer Diagnosis at time of Disposition: Abdominal pain, Hypertension, IBS (irritable bowel syndrome), Hematochezia
[2017-04-17] MEDS ORDERED: KETOROLAC TROMETHAMINE 30 MG/1 ML VIAL ONE (18:42)
[2017-04-17 18:57] LABS: BASOPHIL 0.7 % (0-2.0); EOSINOPHIL 1.1 % (0-4.5); MCH 31.5 pg (25.7-33.7); MCHC 33.5 g/dl (32.0-36.0); MEAN PLT VOLUME 8.8 fl (7.5-11.1); NEUTROPHILS 65.5 % (42.8-82.8); PLATELET COUNT 216 K/MM3 (134-434); RDW 13.9 % (11.6-15.6); WHITE BLOOD COUNT 6.7 K/mm3 (4.0-10.0)
[2017-04-17 19:24] LABS: ALBUMIN 3.7 g/dl (3.4-5.0); BILIRUBIN,TOTAL 0.3 mg/dL (0.2-1.0); CALCIUM 8.7 mg/dL (8.5-10.1); COCKROFT - GAULT 111.962; CREATININE 1.1 mg/dL (0.55-1.02); TOT PROT 6.6 g/dl (6.4-8.2)
--- NOTE | 2017-04-17 19:48 | PDOC ---
Attending Attestation - Resident Resident Name: Kim Sosa - HPI HPI: 04/17/17 19:46 46 yo female presents with complaint of bright red blood on normally formed stool Past medical history significant for IBS and is followed by Dr. Ace No fever, no vomiting, no diarrhea, no rebound or guarding - Physicial Exam PE: 04/17/17 19:48 46-year-old female, well-nourished well-developed has bowel mvmt w BRB lungs cta b/l cvr [id number] abd no rebound no guarding neuro axox3.ambulatory,no focal neuro deficits resident did rectal exam tht was negative for external hemorrhoids - Medical Decision Making 04/17/17 19:52 review of labs- no leukocytosis,no anemia,,renal function and electrolytes unremarkable plan - discharge with GI followup .Pt has an appt 04/30/[address] Ace's office to see if she can be seen sooner UA mild UTI, RX macrodantin 04/17/17 20:33
[2017-04-17] MEDS ORDERED: predniSONE 5 MG TABLET (UD) PO ONE (19:55)
[2017-04-17 19:57] LABS: URINE BACTERIA RARE /hpf (NONE SEEN); URINE MUCUS RARE; URINE RBC 210 /hpf (0-3); URINE WBC 22 /hpf (3-5); YEAST FEW
[2017-04-17] MEDS ORDERED: NITROFURANTOIN MACROCRYSTAL 50 MG CAPSULE (FP) ONE (20:31)
[2017-04-17] MEDS ORDERED: predniSONE 20 MG TABLET (UD) PO STA (20:34)
[2017-04-17] MEDS ORDERED: predniSONE 10 MG TABLET (UD) ONE (20:36)
[2017-04-17] MEDS ORDERED: predniSONE 20 MG TABLET (UD) ONE (20:36)
[2017-04-17] MEDS ORDERED: NITROFURANTOIN MACROCRYSTAL 50 MG CAPSULE (FP) PO SCH (20:45)
[2017-04-17 20:54] VITALS: BP 148/80; PULSE 72; TEMP 98.4
== END 2017-04-17 20:43 | disposition home or self-care (01) ==
LOC: JER 16:34
PROC: 3E0333Z Introduction of Anti-inflammatory into Peripheral Vein, Percutaneous Approach (ICD-10-PCS; principal; 2017-04-17)
DX: K58.9 Irritable bowel syndrome, unspecified (principal); I10 Essential (primary) hypertension
CPT/HCPCS: 36415; 80053; 81003; 81015; 82272; 83605; 83690; 84703; 85025; 96374; 99283-25

== ENCOUNTER 2017-04-27 18:37 | Emergency (ER) | payer OTHER ==
[2017-04-27 18:49] VITALS: BP 124/79; PULSE 94; TEMP 98.3; BMI 38.8
--- NOTE | 2017-04-27 19:55 | PDOC ---
History of Present Illness - General History Source: Patient Exam Limitations: No Limitations - History of Present Illness Initial Comments: 04/27/17 21:51 The patient is a 46 year old female, with a significant past medical history of irritable bowel syndrome and hypertension, who presents to the emergency department complaining of abdominal pain and nausea for approximately 3 days. The patient reports she has been taking 800 mg of motrin every 10 hours for a toothache for several days. However, since she reports abdominal pain since she began taking motrin. She denies any vomiting, diarrhea, or constipation. She reports she has been able to eat and drink normally. She denies any fever, chills, headache, or dizziness. She denies any dysuria, hematuria, frequency, or urgency. The patient reports she has also been taking Diflucan for a UTI. The patient reports she is supposed to get the molar extracted, but not for another 2 weeks. Allergies: morphine, [Nuts] Past Surgical History: Partial Hysterectomy, Arthroscopy of Right knee Social History: Non smoker. No ETOH or drug use. PCP: Dr. Melendez <La Yip - Last Filed: 04/27/17 21:51> <Lynsey Benitez - Last Filed: 04/27/17 23:45> - General Chief Complaint: Pain, Acute Stated Complaint: ABDOMINAL PAIN Time Seen by Provider: 04/27/17 19:55 Past History <La Yip - Last Filed: 04/27/17 21:51> - Past Medical History GI Disorders: Yes (IBS) HTN: Yes - Surgical History Abdominal Surgery: Yes (PARTIAL HTSTERECTOMY) Orthopedic Surgery: Yes (ARTHROSCOPY R KNEE) - Immunization History Immunization Up to Date: Yes - Psycho/Social/Smoking Cessation Hx Anxiety: No Suicidal Ideation: No Smoking Status: No Smoking History: Never smoked Number of Cigarettes Smoked Daily: 0 Cigars Per Day: 0 Hx Alcohol Use: No Drug/Substance Use Hx: No Substance Use Type: None Hx Substance Use Treatment: No <Lynsey Benitez - Last Filed: 04/27/17 23:45> - Past Medical History Allergies/Adverse Reactions: Allergies Allergy/AdvReac Type Severity Reaction Status Date / Time morphine Allergy Vomiting Verified 04/27/17 18:50 Nuts Allergy Intermediate Swelling Uncoded 04/27/17 18:50 Home Medications: Ambulatory Orders Polyethylene Glycol 3350 [Miralax 119 gm Btl -] 17 gm PO BID 08/02/16 Azathioprine 250 mg PO DAILY #35 tab 02/02/17 Lubiprostone [Amitiza] 24 mcg PO TID #21 cap 02/02/17 Pantoprazole Sodium 40 mg PO DAILY #14 tablet 02/02/17 Nitrofurantoin Monohyd/M-Cryst [Macrobid -] 100 mg PO BID #14 capsule 04/17/17 Hydrochlorothiazide [Hctz -] 50 mg PO DAILY 04/27/17 Lisinopril [Prinivil] 10 mg PO DAILY 04/27/17 Penicillin V Potassium [Pen Vee K -] 250 mg PO QID #28 tablet 04/27/17 Review of Systems - Review of Systems Able to Perform ROS?: Yes Comments:: 04/27/17 21:51 GENERAL/CONSTITUTIONAL: No fever or chills. No weakness. HEAD, EYES, EARS, NOSE AND THROAT: No change in vision. No ear pain or discharge. No sore throat. CARDIOVASCULAR: No chest pain or shortness of breath. RESPIRATORY: No cough, wheezing, or hemoptysis. GASTROINTESTINAL: Yes: +diffuse abdominal pain, +nausea. No vomiting, diarrhea or constipation. GENITOURINARY: Yes: +UTI. No dysuria, frequency, or change in urination. MUSCULOSKELETAL: No joint or muscle swelling or pain. No neck or back pain. SKIN: No rash NEUROLOGIC: No headache, vertigo, loss of consciousness, or change in strength/ sensation. ENDOCRINE: No increased thirst. No abnormal weight change. HEMATOLOGIC/LYMPHATIC: No anemia, easy bleeding, or history of blood clots. ALLERGIC/IMMUNOLOGIC: No hives or skin allergy. <La Yip - Last Filed: 04/27/17 21:51> *Physical Exam - Vital Signs Last Vital Signs Temp Pulse Resp BP Pulse Ox 98.3 F 94 H 18 124/79 99 04/27/17 18:47 04/27/17 18:47 04/27/17 18:47 04/27/17 18:47 04/27/17 18:47 - Physical Exam Comments: 04/27/17 21:51 GENERAL: Awake, alert, and fully oriented, in no acute distress HEAD: No signs of trauma EYES: PERRLA, EOMI, sclera anicteric, conjunctiva clear ENT: Auricles normal inspection, hearing grossly normal, nares patent, oropharynx clear without exudates. Moist mucosa NECK: Normal ROM, supple, no lymphadenopathy, JVD, or masses LUNGS: Breath sounds equal, clear to auscultation bilaterally. No wheezes, and no crackles HEART: Regular rate and rhythm, normal S1 and S2, no murmurs, rubs or gallops ABDOMEN: Minimal diffuse tenderness. Gassy. Soft. No guarding, no rebound. No masses EXTREMITIES: Normal range of motion, no edema. No clubbing or cyanosis. No cords , erythema, or tenderness NEUROLOGICAL: Cranial nerves II through XII grossly intact. Normal speech, normal gait SKIN: Warm, Dry, normal turgor, no rashes or lesions noted. <La Yip - Last Filed: 04/27/17 21:51> - Vital Signs Last Vital Signs Temp Pulse Resp BP Pulse Ox 98.3 F 94 H 18 124/79 99 04/27/17 18:47 04/27/17 18:47 04/27/17 18:47 04/27/17 18:47 04/27/17 18:47 <Lynsey Benitez - Last Filed: 04/27/17 23:45> ED Treatment Course - LABORATORY CBC & Chemistry Diagram: 04/27/17 21:40 04/27/17 21:40 <Lynsey Benitez - Last Filed: 04/27/17 23:45> Medical Decision Making - Medical Decision Making 04/27/17 23:43 Pt comes with gassy abd pain due to the fact that she has a toothache and she has been taking 800mg of motirn BID and not eating much food. SHe has a hx of gerd and IBS. Labs normal. Abd exam just revears gassiness. Minimal abd pain and no flank pain. She has no dysuria. No other complaints. Impression/diagnosis: gas pain and gastritis. Pt feeling better after treatment in the ER. She was given Pen VK for the filling that fell out of her tooth. <Lynsey Benitez - Last Filed: 04/27/17 23:45> *DC/Admit/Observation/Transfer - Attestations Scribe Attestion: 04/27/17 21:52 Documentation prepared by La Yip, acting as certified medical technician assistant for Lynsey Benitez MD. <La Yip - Last Filed: 04/27/17 21:51> - Discharge Dispostion Admit: No <Lynsey Benitez - Last Filed: 04/27/17 23:45> Diagnosis at time of Disposition: Gas pain, Tooth pain - Discharge Dispostion Disposition: HOME Condition at time of disposition: Stable - Prescriptions Prescriptions: Penicillin V Potassium [Pen Vee K -] 250 mg PO QID #28 tablet - Referrals Referrals: Rigo Melendez MD [Primary Care Provider] - - Patient Instructions Printed Discharge Instructions: DI for Dyspepsia, DI for Dental Pain
[2017-04-27] MEDS ORDERED: SODIUM CHLORIDE 0.9% 500 ML INFUS.BAG IV ONE (21:32)
[2017-04-27] MEDS ORDERED: ONDANSETRON 4 MG/2 ML VIAL IVPB ONE (21:32)
[2017-04-27] MEDS ORDERED: FAMOTIDINE 20 MG/50 ML IVPB 50 ML IVPB ONE ×2 (21:32→21:37)
[2017-04-27] MEDS ORDERED: PENICILLIN V POTASSIUM 250 MG TABLET PO ONE (21:32)
[2017-04-27] MEDS ORDERED: ONDANSETRON 4 MG/2 ML VIAL ONE (21:37)
[2017-04-27 22:03] LABS: BASOPHIL 0.5 % (0-2.0); MCH 31.9 pg (25.7-33.7); MCHC 33.9 g/dl (32.0-36.0); MEAN CELL VOLUME 94.1 fl (80-96); NEUTROPHILS 71.1 % (42.8-82.8); PLATELET COUNT 219 K/MM3 (134-434); WHITE BLOOD COUNT 8.5 K/mm3 (4.0-10.0)
[2017-04-27 22:32] LABS: ALBUMIN 3.5 g/dl (3.4-5.0); ANION GAP 7 (8-16); CALCIUM 8.5 mg/dL (8.5-10.1); CO2 29 mmol/L (21-32); CREATININE 0.9 mg/dL (0.55-1.02); GLUCOSE,RANDOM 105 mg/dL (74-106); SGOT/AST 14 U/L (15-37); SGPT/ALT 16 U/L (12-78)
[2017-04-27 22:33] LABS: ALK PHOS 107 U/L (45-117); BILIRUBIN,TOTAL 0.6 mg/dL (0.2-1.0); TOT PROT 6.6 g/dl (6.4-8.2)
[2017-04-27] MEDS ORDERED: MAG HYDROX/AL HYDROX/SIMETH 30 ML UNIT-DOSE CUP PO ONE (22:54)
[2017-04-27] MEDS ORDERED: MAG HYDROX/AL HYDROX/SIMETH 30 ML UNIT-DOSE CUP ONE (23:05)
== END 2017-04-27 23:49 | disposition home or self-care (01) ==
LOC: JER 18:37
PROC: 3E033GC Introduction of Other Therapeutic Substance into Peripheral Vein, Percutaneous Approach (ICD-10-PCS; principal; 2017-04-27)
DX: R14.1 Gas pain (principal); R10.13 Epigastric pain; K08.89 Other specified disorders of teeth and supporting structures
CPT/HCPCS: 36415; 80053; 85025; 96365; 96375; 99281-25; 99283-25

== ENCOUNTER 2017-05-20 18:35 | Emergency (ER) | payer OTHER ==
[2017-05-20 18:39] VITALS: BP 145/84; PULSE 95; TEMP 98.2; BMI 38.9
[2017-05-20] MEDS ORDERED: KETOROLAC TROMETHAMINE 15 MG/ML VIAL IVPUSH ONE (20:02)
--- NOTE | 2017-05-20 20:07 | PDOC ---
Attending Attestation - Resident Resident Name: Nadir Arora - HPI HPI: 05/20/17 20:04 Pt with a hx of IBS, who sees CARYN Ace, comes with abdominal pain secondary to eating dairy and meat earler in the week, which usually gives her pain. - Physicial Exam PE: 05/20/17 20:06 Today she has RUQ pain. We will recheck labs, to r/o GB disease. Afebrile. No flank pain no rebound or guarding - Medical Decision Making 05/20/17 20:[address] Ace. Keep a food diary and avoid foods that dont agree with you 05/20/17 21:45 Labs are normal and pt is feeling better; she will be sent home.
[2017-05-20] MEDS ORDERED: KETOROLAC TROMETHAMINE 15 MG/ML VIAL ONE (20:12)
--- NOTE | 2017-05-20 20:21 | PDOC ---
History of Present Illness - General Chief Complaint: Pain Stated Complaint: STOMACH PAIN Time Seen by Provider: 05/20/17 19:22 - History of Present Illness Initial Comments: 05/20/17 20:14 Ms. Penaloza is a 46 yo female with h/o IBS, GERD, and HTN who presents with diffuse abdominal pain. She reports that she recently experienced a lapse in diet and is experiencing intermittent sharp ( 7/10) diffuse abdominal pain after ingesting dairy and red meat. She has accompanying bloating, nausea w/out vomiting, and increased flatulence. Last bowel movement was this AM. It was formed soft stool and she denies hematochezia, melena, diarrhea, dysuria, increased urinary frequency/urgency/hesitancy, alterations in bowel habits. Denies fevers/chills, chest pain, back/flank pain. She routinely follows GI for ongoing IBS/IBD like illness ( 3 years ) and recently seen in ED ( 04/27) for dyspepsia. She reports adherence to medication regimen, and denies OTC analgesia for 3 day abdominal pain. Denies abdominal trauma, or h/o GI surgeries. Drinks 1 gallon of water per day. Allergic to morphine. Past History - Past Medical History Allergies/Adverse Reactions: Allergies Allergy/AdvReac Type Severity Reaction Status Date / Time morphine Allergy Vomiting Verified 05/20/17 18:36 Nuts Allergy Intermediate Swelling Uncoded 05/20/17 18:36 Home Medications: Ambulatory Orders Polyethylene Glycol 3350 [Miralax 119 gm Btl -] 17 gm PO BID 08/02/16 Azathioprine 250 mg PO DAILY #35 tab 02/02/17 Lubiprostone [Amitiza] 24 mcg PO TID #21 cap 02/02/17 Pantoprazole Sodium 40 mg PO DAILY #14 tablet 02/02/17 Hydrochlorothiazide [Hctz -] 50 mg PO DAILY 04/27/17 Lisinopril [Prinivil] 10 mg PO DAILY 04/27/17 GI Disorders: Yes (IBS) HTN: Yes - Surgical History Abdominal Surgery: Yes (PARTIAL HySTERECTOMY) Orthopedic Surgery: Yes (ARTHROSCOPY R KNEE) - Immunization History Immunization Up to Date: Yes - Psycho/Social/Smoking Cessation Hx Anxiety: No Suicidal Ideation: No Smoking Status: No Smoking History: Never smoked Have you smoked in the past 12 months: No Number of Cigarettes Smoked Daily: 0 Cigars Per Day: 0 Information on smoking cessation initiated: No Hx Alcohol Use: No Drug/Substance Use Hx: No Substance Use Type: None Hx Substance Use Treatment: No Review of Systems - Review of Systems Comments:: 05/20/17 20:21 GENERAL/CONSTITUTIONAL: No fever or chills. No weakness. HEAD, EYES, EARS, NOSE AND THROAT: No change in vision. No ear pain or discharge. No sore throat. CARDIOVASCULAR: No chest pain or shortness of breath RESPIRATORY: No cough, wheezing, or hemoptysis. GASTROINTESTINAL:+ Nausea, and abdominal pain. No vomiting, diarrhea or constipation. GENITOURINARY: No dysuria, frequency, or change in urination. MUSCULOSKELETAL: No joint or muscle swelling or pain. No neck or back pain. SKIN: No rash NEUROLOGIC: No headache, vertigo, loss of consciousness, or change in strength/ sensation. ENDOCRINE: No increased thirst. No abnormal weight change HEMATOLOGIC/LYMPHATIC: No anemia, easy bleeding, or history of blood clots. ALLERGIC/IMMUNOLOGIC: No hives or skin allergy. *Physical Exam - Vital Signs Last Vital Signs Temp Pulse Resp BP Pulse Ox 98.2 F 95 H 18 145/84 100 05/20/17 18:36 05/20/17 18:36 05/20/17 18:36 05/20/17 18:36 05/20/17 18:36 - Physical Exam Comments: 05/20/17 20:22 GENERAL: Awake, alert, and fully oriented, in no acute distress HEAD: No signs of trauma, normocephalic, atraumatic EYES: PERRLA, EOMI, sclera anicteric, conjunctiva clear ENT: Auricles normal inspection, hearing grossly normal, nares patent, oropharynx clear without exudates. Moist mucosa NECK: Normal ROM, supple, no lymphadenopathy, JVD, or masses LUNGS: No distress, speaks full sentences, clear to auscultation bilaterally HEART: Regular rate and rhythm, normal S1 and S2, no murmurs, rubs or gallops, peripheral pulses normal and equal bilaterally. ABDOMEN: Tender to palpation in all four quadrants. Normoactive bowel sounds. No guarding, no rebound. No masses. Absent renner's sign, absent hepatosplenomegaly, absent flank, and suprapubic pain. EXTREMITIES: Normal inspection, Normal range of motion, no edema. No clubbing or cyanosis. NEUROLOGICAL: Cranial nerves II through XII grossly intact. Normal speech, normal gait, no focal sensorimotor deficits SKIN: Warm, Dry, normal turgor, no rashes or lesions noted. ED Treatment Course - LABORATORY CBC & Chemistry Diagram: 05/20/17 20:30 05/20/17 20:30 Medical Decision Making - Medical Decision Making 05/20/17 20:24 Ms. Penaloza is a 46 yo female with h/o IBS, GERD, and HTN who presents with diffuse abdominal pain. She has experienced diffuse abdominal pain, and increased flatulence for past 72 hours following ingestion of red meat and dairy. Denies any alarm symptoms of hematochezia, melena, or hemoptyis which makes PUD, or IBD less likely. There is low suspicion for gastroenteritis or gastritis; patient is hemodynamically and denies N/V, diarrhea. Normal bowel regimen and absence of guarding, rebound, or hemodynamic instability on exam makes SBO, and mesenteric ischemia unlikely. Absence of urinary complaints; dysuria, hesitancy, increased frequency/urgency makes pyelonephritis, nephrolithiasis, or cystitis unlikely. Most likely experiencing dyspepsia in setting of abdominal pain, absence of alarm symptoms. 05/20/17 20:26 Ordered CBC, CMP. Admin 15 mg IV Ketorloac 05/20/17 21:15 CBC Unremarkable *DC/Admit/Observation/Transfer Diagnosis at time of Disposition: Dyspepsia and disorder of function of stomach, IBS (irritable bowel syndrome) - Discharge Dispostion Disposition: HOME Condition at time of disposition: Stable Admit: No - Referrals Referrals: Rigo Melendez MD [Primary Care Provider] - - Patient Instructions Additional Instructions: Consider over the counter probiotic ( Green Vibrance ) and avoid foods that cause symptoms of bloating, flatulence, and abdominal pain to recur. Log daily oral food intake in journal and document foods that cause pain/ abdominal discomfort. - Attestations Physician Attestion: 05/20/17 20:34 I, Dr. Nadir Arora, attest that this document has been prepared under my direction and personally reviewed by me in its entirety. I further attest, that it accurately reflects all work, treatment, procedures and medical decision -making performed by me.
[2017-05-20 20:52] LABS: BASOPHIL 0.7 % (0-2.0); EOSINOPHIL 0.8 % (0-4.5); MCH 31.8 pg (25.7-33.7); MEAN CELL VOLUME 93.4 fl (80-96); MEAN PLT VOLUME 8.8 fl (7.5-11.1); NEUTROPHILS 73.3 % (42.8-82.8); PLATELET COUNT 195 K/MM3 (134-434); RDW 14.5 % (11.6-15.6); WHITE BLOOD COUNT 6.3 K/mm3 (4.0-10.0)
[2017-05-20 21:17] LABS: ALBUMIN 3.5 g/dl (3.4-5.0); ALK PHOS 101 U/L (45-117); ANION GAP 5 (8-16); BILIRUBIN,TOTAL 0.2 mg/dL (0.2-1.0); CALCIUM 8.2 mg/dL (8.5-10.1); CO2 29 mmol/L (21-32); CREATININE 0.8 mg/dL (0.55-1.02); GLUCOSE,RANDOM 73 mg/dL (74-106); SGOT/AST 16 U/L (15-37); SGPT/ALT 19 U/L (12-78); TOT PROT 6.6 g/dl (6.4-8.2)
== END 2017-05-20 22:53 | disposition home or self-care (01) ==
LOC: JER 18:35
PROC: 3E0333Z Introduction of Anti-inflammatory into Peripheral Vein, Percutaneous Approach (ICD-10-PCS; principal; 2017-05-20)
DX: R10.13 Epigastric pain (principal); R14.0 Abdominal distension (gaseous); K58.9 Irritable bowel syndrome, unspecified
CPT/HCPCS: 36415; 80053; 85025; 96374; 99283-25

== ENCOUNTER 2017-08-05 17:45 | Emergency (ER) | payer OTHER ==
[2017-08-05 17:48] VITALS: BP 150/98; PULSE 90; TEMP 97.8; BMI 40.7
[2017-08-05] MEDS ORDERED: KETOROLAC TROMETHAMINE 60 MG/2 ML VIAL IM ONE (18:33)
[2017-08-05] MEDS ORDERED: KETOROLAC TROMETHAMINE 60 MG/2 ML VIAL ONE (18:37)
--- NOTE | 2017-08-05 19:04 | PDOC ---
History of Present Illness - General Chief Complaint: Back Pain Stated Complaint: PAIN Time Seen by Provider: 08/05/17 18:10 History Source: Patient Exam Limitations: No Limitations - History of Present Illness Initial Comments: 08/05/17 19:01 CHIEF COMPLAINT: Lower back pain HISTORY OF PRESENT ILLNESS: 47-year-old female, history of lower herniated disks presents with lower back pain, Nonradiating pain, no neurosensory deficits , no bowel or bladder difficulty incontinence or urinary retention, no saddle anesthesia, no footdrop. No history of IVDU or history of cancer. Patient reports that she was applying lotion to her lower extremities turn too fast and back when at the spasm. REVIEW OF SYSTEMS: GENERAL: Afebrile, denies any weakness RESPIRATORY: No cough, wheezing, or hemoptysis. CARDIAC: No chest pain or shortness of breath MUSCULOSKELETAL: Pain to generalized lower back. No point tenderness. SKIN : No erythema, no bruising, no deformity. GI/: Denies any abdominal pain, no urinary difficulty, incontinence or urinary retention. RECTAL: Denies any difficulty this A.m. NEUROLOGICAL: Denies any numbness or tingling. No neurosensory deficits. PHYSICAL EXAM: GENERAL: The patient is awake, alert, and fully oriented, in no acute distress. RESPIRATORY: Lungs clear bilaterally, no rhonchi wheezes or crackles CARDIAC: S1-S2 audible, no murmur rub or gallop MUSCULOSKELETAL: Pain to generalized lower back, nonradiating, no tingling or sensory deficit. Less than 2 second cap refill, +4 popliteal and pedal pulses. GI/: Abdomen soft, nontender, nondistended. No rebound tenderness. No masses palpable. MUSCULOSKELETAL: No spinal point tenderness. Normal reflexive and no deficits to sensation or strength. RECTAL: Deferred patient with no neurological findings SKIN: Warm, Dry, normal turgor, no erythema, no edema no bruising. Past History - Past Medical History Allergies/Adverse Reactions: Allergies Allergy/AdvReac Type Severity Reaction Status Date / Time morphine Allergy Vomiting Verified 08/05/17 17:48 Nuts Allergy Intermediate Swelling Uncoded 08/05/17 17:48 Home Medications: Ambulatory Orders Polyethylene Glycol 3350 [Miralax 119 gm Btl -] 17 gm PO BID 08/02/16 Azathioprine 250 mg PO DAILY #35 tab 02/02/17 Lubiprostone [Amitiza] 24 mcg PO TID #21 cap 02/02/17 Pantoprazole Sodium 40 mg PO DAILY #14 tablet 02/02/17 Hydrochlorothiazide [Hctz -] 50 mg PO DAILY 04/27/17 Lisinopril [Prinivil] 10 mg PO DAILY 04/27/17 Calcium Carbonate/Vitamin D3 [Calcium 500-Vit D3 400 Tablet] 400 mg PO ASDIR Cyclobenzaprine HCl [Flexeril 10 mg] 10 mg PO BID PRN #20 tablet MDD 2 08/05/17 GI Disorders: Yes (IBS/colitis/chron's/upper/lower bowl schemia) HTN: Yes - Surgical History Abdominal Surgery: Yes (PARTIAL HySTERECTOMY) Orthopedic Surgery: Yes (ARTHROSCOPY R KNEE) - Immunization History Immunization Up to Date: Yes - Suicide/Smoking/Psychosocial Hx Smoking Status: No Smoking History: Never smoked Have you smoked in the past 12 months: No Number of Cigarettes Smoked Daily: 0 Cigars Per Day: 0 Information on smoking cessation initiated: No Hx Alcohol Use: No Drug/Substance Use Hx: No Substance Use Type: None Hx Substance Use Treatment: No *Physical Exam - Vital Signs Last Vital Signs Temp Pulse Resp BP Pulse Ox 97.8 F 90 18 150/98 99 08/05/17 17:46 08/05/17 17:46 08/05/17 17:46 08/05/17 17:46 08/05/17 17:46 ED Treatment Course - Medications Given in the ED: ED Medications Discontinued Medications Generic Name Dose Route Start Last Admin Trade Name Freq PRN Reason Stop Dose Admin Ketorolac Tromethamine 60 mg 08/05/17 18:33 08/05/17 18:40 Toradol Injection - IM 08/05/17 18:34 60 mg ONCE ONE Administration Medical Decision Making - Medical Decision Making 08/05/17 19:02 A/P: Patient here for lower back spasm, drove to the emergency department unable to give Valium at this time patient states that she takes medication for ulcerative colitis however has never had episode of bleeding. Is being worked up and has not had definitive diagnosis. We will give Toradol 60 mg IM. Then we 'll reevaluate explained to patient she cannot take any anti-inflammatories after this episode we will discharge patient on Flexeril. Patient states resolve of pain after Toradol, will DC Patient on Flexeril, follow-up with PMD as needed. I discussed the physical exam findings, ancillary test results and final diagnoses with the patient. I answered all of the patient's questions. The patient was satisfied with the care received and felt comfortable with the discharge plan and treatment plan. The patient will call to arrange follow-up and will return to the Emergency Department with any new, persistent or worsening symptoms. *DC/Admit/Observation/Transfer Diagnosis at time of Disposition: Back spasm - Discharge Dispostion Disposition: HOME Condition at time of disposition: Good Admit: No - Prescriptions Prescriptions: Cyclobenzaprine HCl [Flexeril 10 mg] 10 mg PO BID PRN #20 tablet MDD 2 PRN Reason: Pain - Referrals Referrals: Rigo Melendez MD [Primary Care Provider] - - Patient Instructions Printed Discharge Instructions: DI for Back Spasm Additional Instructions: 1. Please return to the emergency department with any numbness, tingling, weakness, numbness or tingling to groin or legs, or loss of bowel or bladder function. 2. Use pain medication as ordered. 3. Please is to followup in the office of Dr. Espinoza for evaluation within a week if no improvement. 4. Ice or heat 5. Refrain from lifting anything above 10 pounds, until pain resolved. - Post Discharge Activity Forms/Work/School Notes: Back to Work
== END 2017-08-05 19:41 | disposition home or self-care (01) ==
LOC: JERFT 17:45
PROC: 3E0233Z Introduction of Anti-inflammatory into Muscle, Percutaneous Approach (ICD-10-PCS; principal; 2017-08-05)
DX: M62.830 Muscle spasm of back (principal); I10 Essential (primary) hypertension; Z87.19 Personal history of other diseases of the digestive system
CPT/HCPCS: 96372; 99281-25

== ENCOUNTER 2017-09-12 17:32 | Emergency (ER) | payer OTHER ==
[2017-09-12 18:05] VITALS: BP 144/72; PULSE 95; TEMP 97.9; BMI 40.7
--- NOTE | 2017-09-12 18:07 | PDOC ---
Rapid Medical Evaluation Chief Complaint: Pain Time Seen by Provider: 09/12/17 17:50 Medical Evaluation: Allergies Allergy/AdvReac Type Severity Reaction Status Date / Time morphine Allergy Vomiting Verified 08/05/17 17:48 Nuts Allergy Intermediate Swelling Uncoded 08/05/17 17:48 09/12/17 18:04 I have performed a brief in-person evaluation of this patient. The patient presents with a chief complaint of: Abd pain w/ nausea w/ diarrhea. H/o IBS, Crohn's, f/u Dr Ace. Pertinent physical exam findings:minimal poorly localized ttp on exam I have ordered the following:cbc/chem/lipase/ua/serum preg The patient will proceed to the ED for further evaluation.
[2017-09-12 18:52] LABS: BASOPHIL 0.5 % (0-2.0); EOSINOPHIL 1.1 % (0-4.5); MCH 31.7 pg (25.7-33.7); MCHC 34.7 g/dl (32.0-36.0); MEAN CELL VOLUME 91.2 fl (80-96); MEAN PLT VOLUME 8.5 fl (7.5-11.1); NEUTROPHILS 69.5 % (42.8-82.8); PLATELET COUNT 218 K/MM3 (134-434); RDW 13.5 % (11.6-15.6); WHITE BLOOD COUNT 7.1 K/mm3 (4.0-10.0)
[2017-09-12 18:53] LABS: URINE APPEARANCE SLCLOUDY; URINE BILIRUBIN NEGATIVE (NEGATIVE); URINE BLOOD NEGATIVE (NEGATIVE); URINE COLOR YELLOW; URINE GLUCOSE (UA) NEGATIVE (NEGATIVE); URINE KETONE TRACE (NEGATIVE); URINE NITRITE NEGATIVE (NEGATIVE); URINE PROTEIN NEGATIVE (NEGATIVE); URINE UROBILINOGEN NEGATIVE mg/dL (0.2-1.0)
[2017-09-12 19:35] LABS: ALBUMIN 4.6 g/dl (3.4-5.0); ALK PHOS 107 U/L (45-117); ANION GAP 4 (8-16); BILIRUBIN,TOTAL 0.4 mg/dL (0.2-1.0); CALCIUM 9.3 mg/dL (8.5-10.1); CO2 29 mmol/L (21-32); CREATININE 1.1 mg/dL (0.55-1.02); GLUCOSE,RANDOM 95 mg/dL (74-106); SGOT/AST 15 U/L (15-37); SGPT/ALT 25 U/L (12-78); TOT PROT 7.5 g/dl (6.4-8.2)
--- NOTE | 2017-09-12 19:54 | PDOC ---
History of Present Illness - General Chief Complaint: Pain Stated Complaint: STOMACH PAIN Time Seen by Provider: 09/12/17 17:50 - History of Present Illness Initial Comments: 47 yo female with PMH of IBS (on multiple therapies), GERD, and HTN who presents with diffuse abdominal pain. Her pain started yesterday with increased episodes of nausea, NBNB vomiting, and non bloody diarrhea that is typical for her IBS flareups. The pain is a 7/10 diffuse abdominal pain. She denies hematochezia, melena, urinary symptoms, fevers/chills, chest pain, back/flank pain. She follows with Dr. Ace for her IBS. She reports adherence to medication regimen. Denies abdominal trauma, or h/o GI surgeries. Her last visit for an IBS flareup was 3 months prior. 09/12/17 20:22 Past History - Past Medical History Allergies/Adverse Reactions: Allergies Allergy/AdvReac Type Severity Reaction Status Date / Time morphine Allergy Vomiting Verified 09/12/17 18:05 Nuts Allergy Intermediate Swelling Uncoded 09/12/17 18:05 Home Medications: Ambulatory Orders Polyethylene Glycol 3350 [Miralax 119 gm Btl -] 17 gm PO BID 08/02/16 Azathioprine 250 mg PO DAILY #35 tab 02/02/17 Lubiprostone [Amitiza] 24 mcg PO TID #21 cap 02/02/17 Pantoprazole Sodium 40 mg PO DAILY #14 tablet 02/02/17 Hydrochlorothiazide [Hctz -] 50 mg PO DAILY 04/27/17 Calcium Carbonate/Vitamin D3 [Calcium 500-Vit D3 400 Tablet] 400 mg PO ASDIR Cyclobenzaprine HCl [Flexeril 10 mg] 10 mg PO BID PRN #20 tablet MDD 2 08/05/17 Ibuprofen [Motrin -] 600 mg PO TID PRN 09/12/17 COPD: No GI Disorders: Yes (IBS/colitis/chron's/upper/lower bowl schemia) HTN: Yes - Surgical History Abdominal Surgery: Yes Orthopedic Surgery: Yes (ARTHROSCOPY R KNEE) - Immunization History Immunization Up to Date: Yes - Suicide/Smoking/Psychosocial Hx Smoking Status: No Smoking History: Never smoked Have you smoked in the past 12 months: No Number of Cigarettes Smoked Daily: 0 Cigars Per Day: 0 Hx Alcohol Use: No Drug/Substance Use Hx: No Substance Use Type: None Hx Substance Use Treatment: No Review of Systems - Review of Systems Constitutional: No: Chills, Fever HEENTM: No: Blurred Vision Respiratory: No: Cough, Shortness of Breath, Stridor, Wheezing Cardiac (ROS): No: Chest Pain, Irregular Heart Rate ABD/GI: Yes: Diarrhea, Nausea, Vomiting. No: Abdominal Distended : No: Burning *Physical Exam - Vital Signs Last Vital Signs Temp Pulse Resp BP Pulse Ox 97.9 F 95 H 20 144/72 99 09/12/17 18:03 09/12/17 18:03 09/12/17 18:03 09/12/17 18:03 09/12/17 18:03 - Physical Exam General Appearance: Yes: Nourished, Appropriately Dressed. No: Apparent Distress HEENT: positive: EOMI, VIC, Normal ENT Inspection, Symmetrical. negative: Normal Voice Neck: positive: Trachea midline, Normal Thyroid, Supple. negative: Tender, Rigid Respiratory/Chest: positive: Lungs Clear, Normal Breath Sounds. negative: Chest Tender, Respiratory Distress Cardiovascular: positive: Regular Rhythm, Regular Rate, S1, S2. negative: Murmur Gastrointestinal/Abdominal: positive: Normal Bowel Sounds, Tender (Diffusely tender), Flat, Soft. negative: Distended, Guarding, Rebound Musculoskeletal: positive: Normal Inspection. negative: CVA Tenderness Extremity: positive: Normal Capillary Refill, Normal Inspection, Normal Range of Motion. negative: Tender Integumentary: positive: Normal Color, Dry, Warm Neurologic: positive: Fully Oriented, Alert, Normal Mood/Affect ED Treatment Course - LABORATORY CBC & Chemistry Diagram: 09/12/17 18:40 09/12/17 18:40 - ADDITIONAL ORDERS Additional order review: Laboratory Results 09/12/17 18:40 Urine Color Yellow Urine Appearance Slcloudy Urine pH 5.0 Ur Specific Plummer 1.018 Urine Protein Negative Urine Glucose (UA) Negative Urine Ketones Trace H Urine Blood Negative Urine Nitrite Negative Urine Bilirubin Negative Urine Urobilinogen Negative 09/12/17 18:40 RBC 4.59 MCV 91.2 MCHC 34.7 RDW 13.5 MPV 8.5 Neutrophils % 69.5 Lymphocytes % 21.1 D Monocytes % 7.8 Eosinophils % 1.1 Basophils % 0.5 Medical Decision Making - Medical Decision Making 47 year old female with history of IBS on therapy with current abdominal pain consistent with her IBS flareup. Denies any blood bowel movements so this pain can reasonably be attributed to her IBS flareup. Denies vomiting as well and able to tolerate PO with mild nausea. Will give toradol (effective in the past) , zofran, and 1 L normal saline. Patient improved after a second dose of Zofran and Toradol. Patient would like to go home. Will DC with return precautions and follow up with Dr. Ace. She is well plugged in with health care providers. 09/13/17 03:26 *DC/Admit/Observation/Transfer Diagnosis at time of Disposition: IBS (irritable bowel syndrome) Qualifiers: Irritable bowel syndrome type: with both diarrhea and constipation Qualified Code(s): K58.2 - Mixed irritable bowel syndrome Abdominal pain Qualifiers: Abdominal location: generalized Qualified Code(s): R10.84 - Generalized abdominal pain - Discharge Dispostion Disposition: HOME Condition at time of disposition: Improved Admit: No - Referrals Referrals: Carlos Ace MD [Primary Care Provider] - - Patient Instructions Printed Discharge Instructions: DI for Irritable Bowel Syndrome Additional Instructions: We saw you for your abdominal pain that you said was consistent with your IBS symptoms. We treated you with toradol for your paina nd zofran for your nausea. Your pain and nausea got better and you were ready to go home. Plese follow up with Dr. Ace for your IBS issues. Please return to the ED if you have pain that isn't able to be controlled with tylenol or other over the counter medications at home.
[2017-09-12] MEDS ORDERED: KETOROLAC TROMETHAMINE 15 MG/ML VIAL IVPUSH ONE ×2 (20:14→21:21)
[2017-09-12] MEDS ORDERED: ONDANSETRON 4 MG/2 ML VIAL IVPUSH ONE ×2 (20:15→21:21)
[2017-09-12] MEDS ORDERED: SODIUM CHLORIDE 0.9% 1000 ML INFUS.BAG IV ONE (20:15)
--- NOTE | 2017-09-12 20:15 | PDOC ---
Attending Attestation - Resident Resident Name: Lashell Ruiz - ED Attending Attestation I have performed the following: I have examined & evaluated the patient, The case was reviewed & discussed with the resident, I agree w/resident's findings & plan, Exceptions are as noted - HPI HPI: 09/12/17 20:13 abdominal pain for the last 2 days. Pt with h/o Crohn's Ds. has not had a flare up in a while. Pt c/o subjective fever. - Physicial Exam PE: 09/12/17 20:14 *Physical Exam General Appearance: Yes: Appropriately Dressed. No: Apparent Distress, Intoxicated HEENT: positive: EOMI, VIC, Normal ENT Inspection, Normal Voice, TMs Normal, Pharynx Normal. negative: Pale Conjunctivae, Photophobia, Scleral Icterus (R), Scleral Icterus (L) Neck: positive: Trachea midline, Normal Thyroid, Supple. negative: Tender, Rigid, Carotid bruit, Stridor, Lymphadenopathy (R), Lymphadenopathy (L), Thyromegaly Respiratory/Chest: positive: Lungs Clear, Normal Breath Sounds. negative: Chest Tender, Respiratory Distress, Accessory Muscle Use, Labored Respiration, RES, Crackles, Rales, Rhonchi, Stridor, Wheezing, Dullness Cardiovascular: positive: Regular Rhythm, Regular Rate, S1, S2. negative: Edema , JVD, Murmur, Bradycardia, Tachycardia Vascular Pulses: Dorsalis-Pedis (R): 2+, Doralis-Pedis (L): 2+ Gastrointestinal/Abdominal: positive: Normal Bowel Sounds, Flat, Soft. negative : Tender, Organomegaly, Pulsatile Mass, Increased Bowel Sounds, Decreased BS, Distended, Guarding, Rebound, Hernia, Hepatomegaly, Spleenomegaly Lymphatic: negative: Adenopathy, Tenderness Musculoskeletal: positive: Normal Inspection. negative: CVA Tenderness, Decreased Range of Motion Extremity: positive: Normal Capillary Refill, Normal Inspection, Normal Range of Motion, Pelvis Stable. negative: Tender, Pedal Edema, Swelling, Erythema Integumentary: positive: Normal Color, Dry, Warm. 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 negative: EOM Palsy, Facial Droop, Sensory Deficit - Medical Decision Making 09/12/17 21:50 Pt feeling better. Pt states she will start taking her own Prednisone she has at home. Pt will follow up with her pcp.
[2017-09-12] MEDS ORDERED: ONDANSETRON 4 MG/2 ML VIAL ONE ×2 (20:27→21:25)
[2017-09-12] MEDS ORDERED: KETOROLAC TROMETHAMINE 15 MG/ML VIAL ONE ×2 (20:27→21:25)
[2017-09-12 21:12] LABS: URINE LEUK ESTERASE Negative (NEGATIVE)
== END 2017-09-12 22:18 | disposition home or self-care (01) ==
LOC: JER 17:32
PROC: 3E0333Z Introduction of Anti-inflammatory into Peripheral Vein, Percutaneous Approach (ICD-10-PCS; principal; 2017-09-12)
PROC: 3E033GC Introduction of Other Therapeutic Substance into Peripheral Vein, Percutaneous Approach (ICD-10-PCS; 2017-09-12)
PROC: 3E0337Z Introduction of Electrolytic and Water Balance Substance into Peripheral Vein, Percutaneous Approach (ICD-10-PCS; 2017-09-12)
DX: K58.2 Mixed irritable bowel syndrome (principal); R10.84 Generalized abdominal pain
CPT/HCPCS: 36415; 80053; 81003; 83690; 84703; 85025; 99281-25

== ENCOUNTER → 2018-01-21 | Day surgery (SDC) | payer OTHER ==
--- NOTE | 2018-01-22 11:36 | PATH ---
Surgical Pathology Report Patient Name: BERNADETTE GIRALDO [facility]. Rec. #: [id number] /Age/Gender: 1970 (Age: 47) / F Account: [id number] Location: RAD[facility]OLOGY [facility] Taken: 01/21/2018 Received: 01/21/2018 Reported: 01/22/2018 Physicians: Lori Bailey M.D. Specimen(s) Received LEFT BREAST CORE BIOPSY Clinical History Nonpalpable lesion Ultrasound findings: Probably benign Final Diagnosis LEFT BREAST, 12:00-1:00, ULTRASOUND GUIDED NEEDLE BIOPSY: FIBROADENOMA, AND FIBROCYSTIC CHANGES INCLUDING USUAL DUCTAL HYPERPLASIA (UDH), STROMAL FIBROSIS, AND DUCTAL DILATATION. Electronically Signed Federico Carpio M.D. Gross Description Received in formalin labeled "left 12:30," are 7 dean-yellow, cylindrical portions of fibroadipose tissue ranging from 0.2-0.9 cm in length and averaging 0.1 cm diameter. The specimens are submitted in toto in one cassette. Total formalin fixation time: Between 9-15 hours 01/21/201801/21/2018
== END | disposition home or self-care (01) ==
LOC: JRADUS-SUR 10:38
PROVIDERS: ATTEND Family Medicine
PROC: 0HBU3ZX Excision of Left Breast, Percutaneous Approach, Diagnostic (ICD-10-PCS; principal; 2018-01-21)
DX: D24.2 Benign neoplasm of left breast (principal); N60.12 Diffuse cystic mastopathy of left breast
CPT/HCPCS: 19083; 87899; 88305-TC; A4648

== ENCOUNTER 2018-10-01 08:00 | Inpatient (IN) | payer OTHER ==
[2018-09-30 11:26] VITALS: BMI 40.8
[2018-10-01] MEDS ORDERED: BUPIVACAINE HCL/PF 0.5% (5MG/ML) 10 ML VIAL ONE (10:48)
--- NOTE | 2018-10-01 10:57 | HP ---
Admitting History and Physical - Admission Chief Complaint: Morbid obesity History Source: Patient Limitations to Obtaining History: No Limitations - Past Medical History Cardiovascular: Yes: HTN Gastrointestinal: Yes: Crohn's Disease, Irritable Bowel Disease, Other ( abdominal pains and thickening of small bowel in mid abdomen and terminal ileum on prior CT scans) Renal/: Yes: Hematuria ...LMP Comment: lmp 2011 - Past Surgical History Past Surgical History: Yes: Hysterectomy - Smoking History Smoking history: Never smoked Have you smoked in the past 12 months: No Aproximately how many cigarettes per day: 0 - Alcohol/Substance Use Hx Alcohol Use: No History of Substance Use: reports: None - Social History ADL: Independent History of Recent Travel: No Home Medications - Allergies Allergies/Adverse Reactions: Allergies Allergy/AdvReac Type Severity Reaction Status Date / Time morphine Allergy Vomiting Verified 05/11/18 20:03 Nuts Allergy Intermediate Swelling Uncoded 05/11/18 20:03 - Home Medications Home Medications: Ambulatory Orders Lubiprostone [Amitiza] 24 mcg PO TID #21 cap 02/02/17 Hydrochlorothiazide [Hctz -] 50 mg PO DAILY 04/27/17 Calcium Carbonate/Vitamin D3 [Calcium 500-Vit D3 400 Tablet] 400 mg PO ASDIR Lisinopril [Prinivil] 10 mg PO DAILY 05/11/18 Ondansetron [Zofran -] 4 mg PO ASDIR PRN 09/30/18 Pantoprazole Sodium [Protonix -] 20 mg PO DAILY 09/30/18 Plecanatide [Trulance] 3 mg PO DAILY 09/30/18 Famotidine [Pepcid] 20 mg PO BID #60 tablet 10/01/18 Famotidine [Pepcid] 20 mg PO BID #60 tablet 10/01/18 Tramadol HCl [Ultram] 50 mg PO Q6H #30 tablet MDD 200 10/01/18 Family Disease History - Family Disease History Family Disease History: Diabetes: Father, Other: Mother (ulcerative colitis, multiple sclerosis), Brother (schizophrenia,autism-2 brothers) Review of Systems - Review of Systems Constitutional: denies: Chills, Fever Eyes: reports: No Symptoms HENT: reports: No Symptoms Neck: reports: No Symptoms Cardiovascular: reports: No Symptoms Respiratory: reports: No Symptoms Gastrointestinal: reports: No Symptoms Neurological: reports: No Symptoms Pain Intensity: 0 Physical Examination Vital Signs: Vital Signs Temperature 97.8 F 10/01/18 09:07 Pulse Rate 70 10/01/18 09:07 Respiratory Rate 20 10/01/18 09:07 Blood Pressure 131/85 10/01/18 09:07 O2 Sat by Pulse Oximetry (%) 100 10/01/18 09:14 Constitutional: Yes: Calm Neck: Yes: WNL Cardiovascular: Yes: WNL Respiratory: Yes: Regular Gastrointestinal: Yes: Soft, Abdomen, Obese Neurological: Yes: Alert, Oriented Problem List - Problems (1) Morbid obesity due to excess calories Code(s): E66.01 - MORBID (SEVERE) OBESITY DUE TO EXCESS CALORIES (2) Hypertension Code(s): I10 - ESSENTIAL (PRIMARY) HYPERTENSION Qualifiers: Hypertension type: unspecified Qualified Code(s): I10 - Essential (primary ) hypertension Assessment/Plan Laparoscopic possible open vertical sleeve gastrectomy, possible liver biopsy, EGD
[2018-10-01] MEDS ORDERED: MEPERIDINE HCL 50 MG/ML VIAL IM PRN (10:58)
[2018-10-01] MEDS ORDERED: SUCCINYLCHOLINE CHLORIDE 200 MG/10 ML VIAL ONE (11:21)
[2018-10-01] MEDS ORDERED: MIDAZOLAM HCL 2 MG/2 ML SINGLE DOSE VIAL ONE (11:21)
[2018-10-01] MEDS ORDERED: ROCURONIUM BROMIDE 50 MG/5 ML VIAL ONE (11:21)
[2018-10-01] MEDS ORDERED: fentaNYL CITRATE 250 MCG/5 ML VIAL ONE (11:21)
[2018-10-01] MEDS ORDERED: PROPOFOL 20 ML ONE (11:21)
[2018-10-01] MEDS ORDERED: LIDOCAINE HCL/PF 2% SDV 5ML VIAL ONE (11:23)
[2018-10-01] MEDS ORDERED: DEXAMETHASONE SOD PHOSPHATE 4 MG/1 ML VIAL ONE (11:23)
[2018-10-01] MEDS ORDERED: ceFAZolin 2 GRAM PREMIX BAG IVPB ONE (11:24)
[2018-10-01] MEDS ORDERED: ceFAZolin SODIUM 1 GM VIAL ONE (11:32)
[2018-10-01] MEDS ORDERED: ePHEDrine SULFATE 50 MG/1 ML AMPULE ONE (12:06)
[2018-10-01] MEDS ORDERED: NEOSTIGMINE METHYLSULFATE 0.5 MG/ML - 10 ML MDV ONE (12:38)
[2018-10-01] MEDS ORDERED: GLYCOPYRROLATE 0.2 MG/1 ML VIAL ONE (12:38)
--- NOTE | 2018-10-01 12:57 | OP ---
Operative Note - Note: Operative Date: 10/01/18 Pre-Operative Diagnosis: Morbid obesity Operation: Laparoscopic vertical sleeve gastrectomy. EGD Post-Operative Diagnosis: Same as Pre-op Surgeon: Pedro Cortez [employer] Specialist: Bradly Early Anesthesia: General Specimens Removed: Greater curvature of the stomach Estimated Blood Loss (mls): 30 Drains & Tubes with Location: 3 Fr Bougie Operative Report Dictated: Yes
[2018-10-01] MEDS ORDERED: METOCLOPRAMIDE HCL INJECTION 10 MG/2 ML VIAL IVPUSH SCH (13:00)
[2018-10-01] MEDS ORDERED: ONDANSETRON 4 MG/2 ML VIAL IVPUSH SCH (13:00)
[2018-10-01] MEDS ORDERED: BUPIVACAINE HCL/PF (5 MG/ML) 30 ML VIAL IJ ONE (13:07)
[2018-10-01] MEDS ORDERED: ONDANSETRON 4 MG/2 ML VIAL IVPUSH PRN (13:24)
[2018-10-01] MEDS ORDERED: HYDROmorphone HCl 2 MG/ML VIAL ONE (13:31)
[2018-10-01] MEDS: ACETAMINOPHEN 1000 MG/100 ML VIAL (NON FORMULARY) IVPB SCH ×3 (13:40→20:31)
[2018-10-01] MEDS ORDERED: HYDROmorphone HCL CARPU-JECT 2 MG/1 ML DISP.SYRIN IVPUSH ONE (13:57)
[2018-10-01] MEDS ORDERED: HYDROmorphone HCl 2 MG/ML VIAL IVPUSH ONE (13:57)
[2018-10-01 13:58] LABS: HEMOGLOBIN 13.6 GM/dL (10.7-15.3); MCH 28.8 pg (25.7-33.7); MCHC 31.7 g/dl (32.0-36.0); MEAN CELL VOLUME 90.8 fl (80-96); MEAN PLT VOLUME 8.7 fl (7.5-11.1); PLATELET COUNT 187 K/MM3 (134-434); RBC 4.73 M/mm3 (3.60-5.2); RDW 13.9 % (11.6-15.6); WHITE BLOOD COUNT 13.4 K/mm3 (4.0-10.0)
--- NOTE | 2018-10-01 14:00 | SPEC ---
DATE OF OPERATION: 10/01/2018 SURGEON: Gwendolyn Cortez MD NAIL MAKING MACHINE TENDER: Bradly Early MD PREOPERATIVE DIAGNOSES: 1. Morbid obesity. 2. Hypertension. POSTOPERATIVE DIAGNOSES: 1. Morbid obesity. 2. Hypertension. PROCEDURES: 1. Laparoscopic vertical sleeve gastrectomy. 2. Upper endoscopy/esophagogastroduodenoscopy. SPECIMEN: Greater curvature of the stomach. BOUGIE: Size 36 Polish. ESTIMATED BLOOD LOSS: 30 mL DRAINS: None. ANESTHESIA: GET. REASON FOR PROCEDURE: This is a 48-year-old female who presented to the office for weight loss options. After describing different options, she decided to proceed with a laparoscopic, possible open vertical sleeve gastrectomy, possible liver biopsy, and upper endoscopy. The risks and benefits of the procedure were explained. RISKS AND BENEFITS: After describing the different options for weight loss management, the patient decided to proceed with a laparoscopic, possible open vertical sleeve gastrectomy. The patient was seen by the respective subspecialties and cleared for surgery. The risks and benefits of the procedure were explained. These included bleeding, infection, hernia, [place], DVT, PE, injury to surrounding structures including the liver, colon, bowel, spleen, esophagus, vessel injury, nerve injury, weight regain, gastric leak, staple line leak, sleeve leak, obstruction, vitamin deficiency, hair loss, and as some of the possible complications. The patient understood and signed informed consent. DESCRIPTION OF PROCEDURE: The patient was placed supine on the operating room table. The patient underwent general endotracheal intubation. The arms were brought out at 90 degrees and secured. A foot board was placed, and the legs were secured laterally with padding. The abdomen was prepped and draped in the usual sterile fashion. A timeout was performed. An incision was made in the left upper quadrant, and a Veress needle inserted. Pneumoperitoneum was established. Subsequently, the Veress needle was removed, and a 5-mm trocar was placed under direct visualization with the laparoscope. The laparoscopic camera was inserted, and inspection of the abdominal cavity was performed. An incision was made in the supraumbilical region, and a 15-mm trocar placed under direct visualization. A 5-mm trocar was then placed in the right upper quadrant, and a 5-mm trocar placed below the left subcostal margin. A stab wound was made in the subxiphoid area, and a Hilda clamp inserted and removed to dilate the tract. A Matt liver retractor was inserted. The post was secured at the bedside by the nursing staff. The patient was placed in steep reverse Trendelenburg position. The Matt liver retractor was used to secure the liver towards the anterior abdominal wall. The pylorus was identified and 6 cm proximal to it, the lesser sac was entered using the Ligasure device. All lateral attachments to the greater curvature of the stomach including the short gastric vessels were ligated using the Ligasure device toward the gastrosplenic and gastrophrenic ligaments. Once this was done in its entirety, it was confirmed that all tubes within the nasal or oropharyngeal cavity including a temperature probe was removed by Anesthesia. The bougie was then inserted by Anesthesia. Transection of the stomach was then begun staying adjacent to the bougie but away from the angularis. Transection of the stomach was performed near the portion of the stomach where the lesser sac was entered. Two laparoscopic Endo-THOR black loads were used at this location. Laparoscopic Endo-THOR purple loads were then used for the remainder of the transection until the greater curvature of the stomach was fully transected. This was done staying close to the bougie. Care was taken to stay away from the angle of His cephalad. The staple line was then inspected. Hemostasis was identified. A leak test was then performed. The stomach was clamped distally to the staple line. Irrigation solution was placed in the left upper quadrant, and air insufflated by Anesthesia into the sleeve. No leaks were identified, and no obstruction was identified. This was done throughout the entirety of the staple line. In addition, an upper endoscopy was performed. The endoscope was placed into the patients mouth and the entirety of the esophagus, GE junction, gastric pouch and staple line were inspected. No obstruction or leak was noted. The stomach was suctioned and the endoscope removed fully intact. At this point, the irrigation solution was suctioned, and again hemostasis noted. The 15-mm supraumbilical trocar was then removed, and the specimen removed from the site using a sponge stick garces. The specimen was inspected, and a Veress needle inserted. The specimen insufflated adequately, and no leak was identified. The staple line was noted to be intact. A Zeferino Manisha device was then used to close the fascia with a 0 Vicryl suture at this site. Again, hemostasis was noted. The Matt liver retractor was then removed under direct visualization. Pneumoperitoneum was desufflated, and the fascial sutures were secured. Hemostasis was noted at all incision sites, and Marcaine was injected at all incision sites. All incision sites were closed using 4-0 Biosyn. Sterile dressings were applied. The patient tolerated the procedure well, and was transferred to the recovery room in stable condition. The patient was transferred to telemetry for further monitoring. GWENDOLYN CORTEZ M.D. [id number]
[2018-10-01 14:20] LABS: ALBUMIN 3.4 g/dl (3.4-5.0); ALK PHOS 130 U/L (45-117); ANION GAP 7 MMOL/L (8-16); BILIRUBIN,TOTAL 0.4 mg/dL (0.2-1); BLOOD UREA NITROGEN 16 mg/dL (7-18); CALCIUM 8.5 mg/dL (8.5-10.1); CHLORIDE 103 mmol/L (98-107); CO2 29 mmol/L (21-32); CREATININE 1.1 mg/dL (0.55-1.3); GLUCOSE,RANDOM 139 mg/dL (74-106); POTASSIUM 3.4 mmol/L (3.5-5.1); SGOT/AST 53 U/L (15-37); SGPT/ALT 72 U/L (13-61); SODIUM 139 mmol/L (136-145); TOT PROT 6.4 g/dl (6.4-8.2)
[2018-10-01] MEDS: LACTATED RINGERS SOLUTION 1,000 ML IV SCH (17:42)
[2018-10-01] MEDS: ONDANSETRON 4 MG/2 ML VIAL IVPUSH SCH ×2 (17:51→22:15)
[2018-10-01] MEDS: SODIUM CHLORIDE 1,000 ML IV SCH (17:51)
[2018-10-01] MEDS: FAMOTIDINE 20 MG/50 ML IVPB 20 MG/50 ML MG IVPB SCH (21:18)
[2018-10-01] MEDS: ENOXAPARIN NA (PORCINE) 40 MG/0.4 ML DISP.SYRIN SQ SCH (21:18)
[2018-10-01] MEDS: METOCLOPRAMIDE HCL INJECTION 10 MG/2 ML VIAL IVPUSH SCH (21:19)
[2018-10-02] MEDS: SODIUM CHLORIDE 1,000 ML IV SCH ×3 (01:00→13:22)
[2018-10-02] MEDS: ACETAMINOPHEN 1000 MG/100 ML VIAL (NON FORMULARY) IVPB SCH ×2 (02:08→09:00)
[2018-10-02] MEDS: ONDANSETRON 4 MG/2 ML VIAL IVPUSH SCH ×6 (02:08→22:43)
[2018-10-02] MEDS: METOCLOPRAMIDE HCL INJECTION 10 MG/2 ML VIAL IVPUSH SCH ×4 (03:55→21:30)
[2018-10-02 06:47] LABS: HEMATOCRIT 39.9 % (32.4-45.2); HEMOGLOBIN 12.9 GM/dL (10.7-15.3); MCH 29.4 pg (25.7-33.7); MCHC 32.4 g/dl (32.0-36.0); MEAN CELL VOLUME 90.7 fl (80-96); MEAN PLT VOLUME 8.9 fl (7.5-11.1); PLATELET COUNT 189 K/MM3 (134-434); RDW 13.8 % (11.6-15.6); WHITE BLOOD COUNT 9.5 K/mm3 (4.0-10.0)
--- NOTE | 2018-10-02 07:23 | PN ---
Progress Note (short form) - Note Progress Note: POD #1 Alert. No acute problems since surgery per RN notes. Doing well. C/o mild incisional tenderness. Adequate pain control via PRN meds. States 1 episode of vomiting (dark blood)...most likely from staple line during procedure to create new greater curvature. Nothing since. Has some intermittent bouts of nausea...controlled well with antiemetics as ordered. She is oob and ambulating. Voiding spontaneously. Denies fever, chills, CP, palpiations, SOB or RUIZ. Last Vital Signs Temp Pulse Resp BP Pulse Ox 99.7 F H 96 H 18 142/88 100 10/02/18 05:00 10/02/18 05:00 10/02/18 05:00 10/02/18 05:00 10/01/18 20:19 PE Gen: nad ABD: all surgical ports c/d/i. no hematoma LE: SCDs bilat. soft. non-tender <Owen Vasquez - Last Filed: 10/02/18 07:36> - Note Progress Note: Agree POD 1 Pain controlled No nausea AVSS Abd soft UGI pending Follow up UGI Clears if no leak/obstruction and discharge planning <Pedro Cortez - Last Filed: 10/02/18 09:18> Problem List - Problems (1) Morbid obesity due to excess calories Assessment/Plan: POD #1 s/p Laparoscopic vertical sleeve gastrectomy. EGD f/u UGI --> if negative will begin bariatric stage 1 diet Cont oob and ambulate Incentive spirometer Pain management PRN Antiemetics If tolerates diet will dc home later today Code(s): E66.01 - MORBID (SEVERE) OBESITY DUE TO EXCESS CALORIES <Owen Vasquez - Last Filed: 10/02/18 07:36> - Problems (1) Morbid obesity due to excess calories Code(s): E66.01 - MORBID (SEVERE) OBESITY DUE TO EXCESS CALORIES (2) Hypertension Code(s): I10 - ESSENTIAL (PRIMARY) HYPERTENSION Qualifiers: Hypertension type: unspecified Qualified Code(s): I10 - Essential (primary ) hypertension <Pedro Cortez - Last Filed: 10/02/18 09:18>
[2018-10-02 08:08] LABS: ALBUMIN 3.4 g/dl (3.4-5.0); ALK PHOS 126 U/L (45-117); ANION GAP 10 MMOL/L (8-16); BILIRUBIN,TOTAL 0.6 mg/dL (0.2-1); BLOOD UREA NITROGEN 12 mg/dL (7-18); CALCIUM 8.3 mg/dL (8.5-10.1); CHLORIDE 104 mmol/L (98-107); CO2 26 mmol/L (21-32); CREATININE 0.9 mg/dL (0.55-1.3); GLUCOSE,RANDOM 84 mg/dL (74-106); POTASSIUM 3.6 mmol/L (3.5-5.1); SGOT/AST 47 U/L (15-37); SGPT/ALT 66 U/L (13-61); SODIUM 140 mmol/L (136-145); TOT PROT 6.5 g/dl (6.4-8.2)
[2018-10-02] MEDS ORDERED: PT OWN MED DRAWER 7, Y5N ONE ×2 (08:08→15:30)
[2018-10-02] MEDS: ENOXAPARIN NA (PORCINE) 40 MG/0.4 ML DISP.SYRIN SQ SCH ×2 (09:39→21:30)
[2018-10-02] MEDS: FAMOTIDINE 20 MG/50 ML IVPB 20 MG/50 ML MG IVPB SCH ×2 (09:44→21:30)
[2018-10-02] MEDS: LACTATED RINGERS SOLUTION 1,000 ML IV SCH (13:00)
[2018-10-02] MEDS ORDERED: MEPERIDINE HCL CARPU-JECT 50 MG/1 ML DISP.SYRIN IM PRN (15:34)
--- NOTE | 2018-10-02 18:31 | PATH ---
Surgical Pathology Report Patient Name: BERNADETTE GIRALDO [facility], [place]. Rec. #: [id number] /Age/Gender: 1970 (Age: 48) / F Account: [id number] Location: 4 PEDS/ADOL Taken: 10/01/2018 Received: 10/01/2018 Reported: 10/02/2018 Physicians: Pedro Cortez M.D. Specimen(s) Received GREATER CURVATURE STOMACH Clinical History Morbid obesity Final Diagnosis GREATER CURVATURE STOMACH, LAPAROSCOPIC VERTICAL SLEEVE GASTRECTOMY: SEGMENT OF STOMACH SHOWING MILD CHRONIC GASTRITIS. IMMUNOSTAINING IS NEGATIVE FOR H. PYLORI ORGANISMS. NEGATIVE FOR INTESTINAL METAPLASIA. Electronically Signed Reuben Rios M.D. Gross Description Received in formalin, labeled "curvature of stomach," is a 108 gram, 19.5 x 3.0 x 2.6 cm. portion of stomach with a stapled margin of resection. The serosa is dean-barcenas with moderate attached fat. The mucosa is dean-pink with normal folds. No mucosal masses are identified. Drapery And Upholstery Estimator sections are submitted in one cassette. /10/01/2018 saudi/10/01/2018
[2018-10-03] MEDS: ONDANSETRON 4 MG/2 ML VIAL IVPUSH SCH ×3 (02:17→09:23)
[2018-10-03] MEDS: METOCLOPRAMIDE HCL INJECTION 10 MG/2 ML VIAL IVPUSH SCH ×3 (03:15→09:23)
[2018-10-03 06:30] VITALS: BP 155/96; PULSE 82; TEMP 98
[2018-10-03] MEDS: FAMOTIDINE 20 MG/50 ML IVPB 20 MG/50 ML MG IVPB SCH (09:23)
[2018-10-03] MEDS: ENOXAPARIN NA (PORCINE) 40 MG/0.4 ML DISP.SYRIN SQ SCH (09:23)
--- NOTE | 2018-10-04 09:03 | SURG ---
Surgery Transistor Tester Note Transistor Tester: Bradly Early MD Date of Service: 10/01/18 Diagnosis: morbid obesity Procedure: laparoscopic vertical sleeve gastrectomy I was present for the entirety of the operative procedure. For further detail, please refer to operative report.
== END 2018-10-03 11:05 | disposition home or self-care (01) | DRG 403 ==
LOC: JSAMEDAYSX 08:32 → J4S 17:20
PROVIDERS: ADMIT Surgery; ATTEND Surgery
PROC: 0DB64Z3 Excision of Stomach, Percutaneous Endoscopic Approach, Vertical (ICD-10-PCS; principal; 2018-10-01 11:00)
PROC: 0DJ08ZZ Inspection of Upper Intestinal Tract, Via Natural or Artificial Opening Endoscopic (ICD-10-PCS; 2018-10-01 11:00)
DX: E66.01 Morbid (severe) obesity due to excess calories (principal); Z68.39 Body mass index [BMI] 39.0-39.9, adult; I10 Essential (primary) hypertension; K58.9 Irritable bowel syndrome, unspecified; Z90.710 Acquired absence of both cervix and uterus
CPT/HCPCS: 36415; 74241-TC-FY; 80053; 85027; 86850; 86900; 86901; 88305-TC; 94760; J0131; J7030

== ENCOUNTER 2018-10-05 00:33 | Emergency (ER) | payer OTHER ==
--- NOTE | 2018-10-05 00:44 | PDOC ---
History of Present Illness - General History Source: Patient Exam Limitations: No Limitations - History of Present Illness Initial Comments: 10/05/18 01:58 The patient is a 48 year old female, with a significant past medical history of obesity, HTN, GERD, IBS, who presents to the emergency department with, abdominal pain. As per patient, she had her gastric sleeve surgery 4 days ago and saw her surgeon Dr. Cortez yesterday. This afternoon she notes sudden onset abdominal pain she describes as waxing and waning in nature. She denies recent fevers, chills, headache or dizziness. She denies recent nausea, vomit, diarrhea or constipation. She denies recent dysuria, frequency, urgency or hematuria. She denies recent chest pain or shortness of breath. Allergies: morphine, nuts Past surgical history: Arthroscopy R knee. Laparoscopic vertical sleeve gastrectomy (4 days ago). Social history: No reported alcohol, drug, or cigarette use. PCP: Dr. Jolly GI: Dr. Ace Surgeon: Dr. Cortez <Ciaran Porter - Last Filed: 10/05/18 01:58> <Lynsey Benitez - Last Filed: 10/05/18 02:36> - General Chief Complaint: Pain, Acute Stated Complaint: ABDOMINAL PAIN Time Seen by Provider: 10/05/18 00:44 Past History <Ciaran Porter - Last Filed: 10/05/18 01:58> - Past Medical History COPD: No GI Disorders: Yes (IBS/colitis/chron's/upper/lower bowl schemia) HTN: Yes - Surgical History Abdominal Surgery: Yes Orthopedic Surgery: Yes (ARTHROSCOPY R KNEE) - Immunization History Immunization Up to Date: Yes - Suicide/Smoking/Psychosocial Hx Smoking Status: No Smoking History: Never smoked Have you smoked in the past 12 months: No Number of Cigarettes Smoked Daily: 0 Cigars Per Day: 0 Hx Alcohol Use: No Drug/Substance Use Hx: No Substance Use Type: None Hx Substance Use Treatment: No <Lynsey Benitez - Last Filed: 10/05/18 02:36> - Past Medical History Allergies/Adverse Reactions: Allergies Allergy/AdvReac Type Severity Reaction Status Date / Time morphine Allergy Vomiting Verified 10/05/18 00:43 Nuts Allergy Intermediate Swelling Uncoded 10/05/18 00:43 Home Medications: Ambulatory Orders Lubiprostone [Amitiza] 24 mcg PO TID #21 cap 02/02/17 Hydrochlorothiazide [Hctz -] 50 mg PO DAILY 04/27/17 Calcium Carbonate/Vitamin D3 [Calcium 500-Vit D3 400 Tablet] 400 mg PO ASDIR Lisinopril [Prinivil] 10 mg PO DAILY 05/11/18 Ondansetron [Zofran -] 4 mg PO ASDIR PRN 09/30/18 Pantoprazole Sodium [Protonix -] 20 mg PO DAILY 09/30/18 Plecanatide [Trulance] 3 mg PO DAILY 09/30/18 Famotidine [Pepcid] 20 mg PO BID #60 tablet 10/01/18 Tramadol HCl [Ultram] 50 mg PO Q6H #30 tablet MDD 200 10/01/18 Review of Systems - Review of Systems Able to Perform ROS?: Yes Comments:: 10/05/18 01:59 GENERAL/CONSTITUTIONAL: No fever or chills. No weakness. HEAD, EYES, EARS, NOSE AND THROAT: No change in vision. No ear pain or discharge. No sore throat. CARDIOVASCULAR: No chest pain or shortness of breath. RESPIRATORY: No cough, wheezing, or hemoptysis. +GASTROINTESTINAL: Abdominal pain. No nausea, vomiting, diarrhea or constipation. GENITOURINARY: No dysuria, frequency, or change in urination. MUSCULOSKELETAL: No joint or muscle swelling or pain. No neck or back pain. SKIN: No rash NEUROLOGIC: No headache, vertigo, loss of consciousness, or change in strength/ sensation. ENDOCRINE: No increased thirst. No abnormal weight change. HEMATOLOGIC/LYMPHATIC: No anemia, easy bleeding, or history of blood clots. ALLERGIC/IMMUNOLOGIC: No hives or skin allergy. All Other Systems: Reviewed and Negative <Ciaran Porter - Last Filed: 10/05/18 01:58> *Physical Exam - Vital Signs Last Vital Signs Temp Pulse Resp BP Pulse Ox 97.8 F 120 H 20 125/91 99 10/05/18 00:40 10/05/18 00:40 10/05/18 00:40 10/05/18 00:40 10/05/18 00:40 <Ciaran Porter - Last Filed: 10/05/18 01:58> ED Treatment Course - LABORATORY CBC & Chemistry Diagram: 10/05/18 00:54 10/05/18 00:54 - ADDITIONAL ORDERS Additional order review: Laboratory Results 10/05/18 00:54 Sodium 135 L Potassium 3.4 L Chloride 98 Carbon Dioxide 30 Anion Gap 8 BUN 14 Creatinine 1.2 Creat Clearance w eGFR 47.55 Random Glucose 86 Calcium 8.7 Total Bilirubin 0.8 AST 19 ALT 39 Alkaline Phosphatase 138 H Total Protein 7.7 Albumin 3.7 Lipase 152 10/05/18 00:54 RBC 4.99 MCV 89.0 MCHC 33.5 RDW 13.2 MPV 7.9 D Neutrophils % 74.6 D Lymphocytes % 14.5 D Monocytes % 8.0 Eosinophils % 2.4 D Basophils % 0.5 - Medications Given in the ED: ED Medications Discontinued Medications Generic Name Dose Route Start Last Admin Trade Name Freq PRN Reason Stop Dose Admin Potassium Chloride 10 meq 10/05/18 01:51 10/05/18 01:57 K-Dur - PO 10/05/18 01:52 10 meq ONCE ONE Administration <Ciaran Porter - Last Filed: 10/05/18 01:58> - LABORATORY CBC & Chemistry Diagram: 10/05/18 00:54 10/05/18 00:54 <Lynsey Benitez - Last Filed: 10/05/18 02:36> Medical Decision Making - Medical Decision Making 10/05/18 01:52 Pt comes with abd pain 4 days post surgery. Pt is afebrile and all her labs are normal. Pt is ambulating about and she appears well. <Lynsey Benitez - Last Filed: 10/05/18 02:36> *DC/Admit/Observation/Transfer - Attestations Scribe Attestion: 10/05/18 01:59 Documentation prepared by Ciaran Porter, acting as regional medical director for Lynsey Benitez MD. <Ciaran Porter - Last Filed: 10/05/18 01:58> - Discharge Dispostion Decision to Admit order: No <Lynsey Benitez - Last Filed: 10/05/18 02:36> Diagnosis at time of Disposition: Abdominal pain, Gas pain - Discharge Dispostion Disposition: HOME Condition at time of disposition: Improved - Patient Instructions Printed Discharge Instructions: DI for Dyspepsia
[2018-10-05 00:45] VITALS: BP 125/91; PULSE 120; TEMP 97.8; BMI 39.2
[2018-10-05 00:59] LABS: BASO % 0.5 % (0-2.0); EOS % 2.4 % (0-4.5); HEMATOCRIT 44.4 % (32.4-45.2); HEMOGLOBIN 14.9 GM/dL (10.7-15.3); LYMPH % 14.5 % (8-40); MCH 29.8 pg (25.7-33.7); MCHC 33.5 g/dl (32.0-36.0); MEAN PLT VOLUME 7.9 fl (7.5-11.1); NEUT % 74.6 % (42.8-82.8); PLATELET COUNT 195 K/MM3 (134-434); RBC 4.99 M/mm3 (3.60-5.2); RDW 13.2 % (11.6-15.6)
[2018-10-05 01:20] LABS: ALBUMIN 3.7 g/dl (3.4-5.0); ALK PHOS 138 U/L (45-117); ANION GAP 8 MMOL/L (8-16); BILIRUBIN,TOTAL 0.8 mg/dL (0.2-1); BLOOD UREA NITROGEN 14 mg/dL (7-18); CALCIUM 8.7 mg/dL (8.5-10.1); CHLORIDE 98 mmol/L (98-107); CO2 30 mmol/L (21-32); CREATININE 1.2 mg/dL (0.55-1.3); GLUCOSE,RANDOM 86 mg/dL (74-106); LIPASE 152 U/L (73-393); POTASSIUM 3.4 mmol/L (3.5-5.1); SGOT/AST 19 U/L (15-37); SGPT/ALT 39 U/L (13-61); SODIUM 135 mmol/L (136-145); TOT PROT 7.7 g/dl (6.4-8.2)
[2018-10-05] MEDS ORDERED: POTASSIUM CHLORIDE TABS 10 MEQ TABLET.ER (FP) PO ONE (01:51)
[2018-10-05] MEDS ORDERED: POTASSIUM CHLORIDE TABS 10 MEQ TABLET.ER (FP) ONE (01:58)
== END 2018-10-05 03:09 | disposition home or self-care (01) ==
LOC: JER 00:33
DX: R14.1 Gas pain (principal); Z98.84 Bariatric surgery status; I10 Essential (primary) hypertension; E66.9 Obesity, unspecified; Z68.37 Body mass index [BMI] 37.0-37.9, adult; Z87.19 Personal history of other diseases of the digestive system; E87.6 Hypokalemia
CPT/HCPCS: 36415; 80053; 83690; 85025; 99282-25

== ENCOUNTER 2019-04-11 00:51 | Emergency (ER) | payer OTHER ==
--- NOTE | 2019-04-11 01:39 | PDOC ---
History of Present Illness - General Chief Complaint: Lightheaded Stated Complaint: DIZZINESS, FATIGUE History Source: Patient Exam Limitations: No Limitations - History of Present Illness Initial Comments: 04/11/19 01:41 Patient is a 48 year old female with history of hypertension, IBS (constipation predominant) presents with complaint of lightheadedness, nausea and weakness ongoing for past two days. Patient endorses that she ate Chiinese takeout shortly after which she endorsed nausea, with diminished appetite. She admits diminished oral intake with only small sips of water and half a banana today. She denies any vomiting, or bowel movements today. Patient admits subjective chills, and sweats. 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 She denies illicit drug use, smoking history, or alcohol. Past History - Past Medical History Allergies/Adverse Reactions: Allergies Allergy/AdvReac Type Severity Reaction Status Date / Time morphine Allergy Vomiting Verified 04/11/19 01:30 Nuts Allergy Intermediate Swelling Uncoded 04/11/19 01:30 Home Medications: Ambulatory Orders Lubiprostone [Amitiza] 24 mcg PO TID #21 cap 02/02/17 Hydrochlorothiazide [Hctz -] 50 mg PO DAILY 04/27/17 Calcium Carbonate/Vitamin D3 [Calcium 500-Vit D3 400 Tablet] 400 mg PO ASDIR Lisinopril [Prinivil] 10 mg PO DAILY 05/11/18 Ondansetron [Zofran -] 4 mg PO ASDIR PRN 09/30/18 Pantoprazole Sodium [Protonix -] 20 mg PO DAILY 09/30/18 Plecanatide [Trulance] 3 mg PO DAILY 09/30/18 Famotidine [Pepcid] 20 mg PO BID #60 tablet 10/01/18 Tramadol HCl [Ultram] 50 mg PO Q6H #30 tablet MDD 200 10/01/18 COPD: No GI Disorders: Yes (IBS/colitis/chron's/upper/lower bowl schemia) HTN: Yes - Surgical History Abdominal Surgery: Yes Orthopedic Surgery: Yes (ARTHROSCOPY R KNEE) - Immunization History Immunization Up to Date: Yes - Suicide/Smoking/Psychosocial Hx Smoking Status: No Smoking History: Never smoked Have you smoked in the past 12 months: No Number of Cigarettes Smoked Daily: 0 Cigars Per Day: 0 Hx Alcohol Use: No Drug/Substance Use Hx: No Substance Use Type: None Hx Substance Use Treatment: No Review of Systems - Review of Systems Able to Perform ROS?: Yes Constitutional: Yes: Chills, Night Sweats HEENTM: Yes: Blurred Vision (during dizziness episodes). No: Tinnitus, Difficulty Swallowing Respiratory: Yes: Shortness of Breath. No: Stridor, Wheezing, Productive cough , Hemoptysis Cardiac (ROS): Yes: Lightheadedness. No: Chest Pain, Edema, Irregular Heart Rate, Palpitations ABD/GI: Yes: Constipated, Nausea, Poor Fluid Intake, Abdominal cramping. No: Abdominal Distended, Blood Streaked Bowels, Diarrhea, Difficulty Swallowing, Rectal Bleeding, Vomiting : No: Burning, Dysuria, Discharge *Physical Exam - Physical Exam General Appearance: Yes: Nourished, Appropriately Dressed. No: Apparent Distress HEENT: positive: EOMI, VIC, Other (oral mucosa dry). negative: Scleral Icterus (R), Scleral Icterus (L) Neck: positive: Supple. negative: Decreased range of motion, Lymphadenopathy (R ), Lymphadenopathy (L) Respiratory/Chest: positive: Lungs Clear, Normal Breath Sounds. negative: Respiratory Distress, Accessory Muscle Use, Crackles, Rales, Rhonchi, Stridor, Wheezing, Hyperresonant, Dullness Cardiovascular: positive: Regular Rhythm, Regular Rate, S1, S2. negative: Murmur Gastrointestinal/Abdominal: positive: Tender (at epigastrum), Flat, Soft Integumentary: positive: Dry, Warm ED Treatment Course - LABORATORY CBC & Chemistry Diagram: 04/11/19 01:55 04/11/19 06:00 Medical Decision Making - Medical Decision Making 04/11/19 02:36 Patient is a 48 year old female with history of hypertension, IBS (constipation predominant) presents with complaint of lightheadedness, nausea and weakness ongoing for past two days. Will obtain CBC, CMP EKG, troponin Hydrate with IV normal saline 1L bolus 04/11/19 03:35 EKG shoes sinus bradycardia at 59BPM, No ischemic changes Troponin 0.02 Cr 2.3 suggestive of VALERIE. Patient being hydrated with IV fluids. 04/11/19 06:21 Repeat BMP. If Creatinine trending down, will discharge home to follow up with primary care physician. All concerns, questions addressed and answered. Patient in agreement with the plan. Case signed out to day team. *DC/Admit/Observation/Transfer Diagnosis at time of Disposition: Dehydration - Discharge Dispostion Disposition: HOME Condition at time of disposition: Stable Decision to Admit order: No - Referrals Referrals: Alden Jolly MD [Primary Care Provider] - - Patient Instructions Additional Instructions: You were seen in the Emergency Department for dehydration You were treated with IV fluids. You are being discharged home. Continue taking your home medications as directed. Make sure to remain well hydrated and drink at least 6-8 glasses of water a day. Follow up with your primary care physician within one- two days after discharge. Return to the nearest Emergency Department if you experience fevers, chills shortness of breath, chest pain, palpitations, abdominal pain, nausea, vomiting , fall, loss of consciousness, any trauma. - Post Discharge Activity
[2019-04-11] MEDS ORDERED: SODIUM CHLORIDE 1,000 ML IV STA ×2 (01:56→03:13)
--- NOTE | 2019-04-11 02:10 | PDOC ---
Attending Attestation - Resident Resident Name: BellaFelixf - ED Attending Attestation I have performed the following: I have examined & evaluated the patient, The case was reviewed & discussed with the resident, I agree w/resident's findings & plan, Exceptions are as noted - HPI HPI: 04/11/19 02:15 48y F hx of htn, IBS, sp gastric sleeve presents with complaint of feeling lighteahded, nausea, poor appetite. The patient endorses having an episode of nausea and vomiting yesterday after eating some [place] Rolls, since then she has been feeling lightheaded, with a poor appetite. 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 Patient denies any fevers, current abdominal pain, vaginal bleeding, diarrhea, melena, chest pain, palpitations, shortness of breath, cough. GENERAL: The patient is awake, alert, and fully oriented, Nontoxic - in no acute distress. HEAD: Normocephalic, atraumatic. EYES: extraocular movements intact, sclera anicteric, conjunctiva clear. ENT: Normal voice, dry mucous membranes. NECK: Normal range of motion, supple LUNGS: Breath sounds equal, clear to auscultation bilaterally. No wheezes, no rhonchi, no rales. HEART: Regular rate and rhythm, normal S1 and S2 without murmur, rub or gallop. ABDOMEN: Soft, nontender, n\ No guarding, no rebound. . No CVA tenderness EXTREMITIES: Normal range of motion, no edema. NEUROLOGICAL: No facial assymetry, Normal speech, PSYCH: Normal mood, normal affect. SKIN: Warm, Dry, normal turgor, Suspect that the patient's symptoms may be secondary to dehydration. We'll obtain basic blood work will hydrate the patient. - Physicial Exam PE: 04/11/19 07:58 see above - Medical Decision Making 04/11/19 07:57 pts labs reviewed noted for VALERIE -suspect secondary to dehdyration - pt given fluids and VALERIE improved K sitkeegan low - will repleat. anticipate pt will likely be dc if feeling better tolreating oral intake signed out to day team to fu and reassess Heart Score/ECG Review - ECG Impressions Comment:: 04/11/19 03:30 Twelve-lead EKG was performed and reviewed by me. There is normal sinus rhythm Rate of 59 The axis is normal. First degree AV block There is normal R wave progression There are no ST or T wave abnormalities.
[2019-04-11 02:14] VITALS: BMI 26.6
[2019-04-11 02:27] LABS: HEMATOCRIT 40.7 % (32.4-45.2); HEMOGLOBIN 13.8 GM/dL (10.7-15.3); MCH 30.5 pg (25.7-33.7); MCHC 33.9 g/dl (32.0-36.0); MEAN CELL VOLUME 90.2 fl (80-96); MEAN PLT VOLUME 9.5 fl (7.5-11.1); PLATELET COUNT 191 K/MM3 (134-434); RBC 4.51 M/mm3 (3.60-5.2); RDW 12.9 % (11.6-15.6); WHITE BLOOD COUNT 7.4 K/mm3 (4.0-10.0)
[2019-04-11 02:55] LABS: ALBUMIN 4.3 g/dl (3.4-5.0); BILIRUBIN,TOTAL 0.5 mg/dL (0.2-1); CALCIUM 9.5 mg/dL (8.5-10.1); CREATININE 2.3 mg/dL (0.55-1.3); TOT PROT 7.1 g/dl (6.4-8.2)
[2019-04-11] MEDS ORDERED: POTASSIUM CHLORIDE ORAL LIQUID 20 MEQ/15 ML PO ONE (03:12)
[2019-04-11] MEDS ORDERED: POTASSIUM CHLORIDE ORAL LIQUID 20 MEQ/15 ML ONE (03:34)
[2019-04-11] MEDS ORDERED: POTASSIUM CHLORIDE TABS 20 MEQ TABLET.ER (FP) PO ONE ×3 (04:39→07:32)
[2019-04-11 06:59] LABS: CALCIUM 8.5 mg/dL (8.5-10.1); CREATININE 1.7 mg/dL (0.55-1.3)
[2019-04-11 07:15] LABS: URINE APPEARANCE CLEAR; URINE BILIRUBIN NEGATIVE (NEGATIVE); URINE COLOR YELLOW; URINE GLUCOSE (UA) NEGATIVE (NEGATIVE); URINE KETONE 1+ (NEGATIVE); URINE LEUK ESTERASE NEGATIVE (NEGATIVE); URINE NITRITE NEGATIVE (NEGATIVE); URINE PROTEIN NEGATIVE (NEGATIVE); URINE UROBILINOGEN 0.2 mg/dL (0.2-1.0)
[2019-04-11 07:19] LABS: POTASSIUM 2.9 mmol/L (3.5-5.1)
[2019-04-11] MEDS ORDERED: POTASSIUM CHLORIDE 20 MEQ PREMIX IVPB 100 ML IVPB ONE (07:33)
--- NOTE | 2019-04-11 07:41 | PDOC ---
*Physical Exam - Vital Signs Last Vital Signs Temp Pulse Resp BP Pulse Ox 97.8 F 65 20 107/68 99 04/11/19 07:02 04/11/19 07:12 04/11/19 00:59 04/11/19 07:12 04/11/19 07:12 ED Treatment Course - LABORATORY CBC & Chemistry Diagram: 04/11/19 01:55 04/11/19 11:38 - ADDITIONAL ORDERS Additional order review: Laboratory Results 04/11/19 04/11/19 04/11/19 06:00 05:45 01:56 Sodium 140 Potassium 2.9 L* Chloride 105 Carbon Dioxide 26 Anion Gap 9 BUN 24 H Creatinine 1.7 H Est GFR (CKD-EPI)AfAm 40.05 Est GFR (CKD-EPI)NonAf 34.56 Random Glucose 67 L Calcium 8.5 Total Bilirubin AST ALT Alkaline Phosphatase Troponin I < 0.02 Total Protein Albumin Urine Color Yellow Urine Appearance Clear Urine pH 5.0 Ur Specific [place] 1.013 Urine Protein Negative Urine Glucose (UA) Negative Urine Ketones 1+ H Urine Blood Negative Urine Nitrite Negative Urine Bilirubin Negative Urine Urobilinogen 0.2 Ur Leukocyte Esterase Negative 04/11/19 01:55 Sodium 137 Potassium 3.0 L Chloride 99 Carbon Dioxide 28 Anion Gap 10 BUN 28 H Creatinine 2.3 H Est GFR (CKD-EPI)AfAm 27.79 Est GFR (CKD-EPI)NonAf 23.98 Random Glucose 74 Calcium 9.5 Total Bilirubin 0.5 AST 12 L ALT 22 Alkaline Phosphatase 93 Troponin I Total Protein 7.1 Albumin 4.3 Urine Color Urine Appearance Urine pH Ur Specific [place] Urine Protein Urine Glucose (UA) Urine Ketones Urine Blood Urine Nitrite Urine Bilirubin Urine Urobilinogen Ur Leukocyte Esterase 04/11/19 01:55 RBC 4.51 MCV 90.2 MCHC 33.9 RDW 12.9 MPV 9.5 D - Medications Given in the ED: ED Medications Discontinued Medications Generic Name Dose Route Start Last Admin Trade Name Freq PRN Reason Stop Dose Admin Sodium Chloride 1,000 mls @ 1,000 mls/hr 04/11/19 01:56 04/11/19 02:28 Normal Saline - IV 04/11/19 02:55 1,000 mls/hr ASDIR STA Administration Sodium Chloride 1,000 mls @ 1,000 mls/hr 04/11/19 03:13 04/11/19 03:15 Normal Saline - IV 04/11/19 04:12 1,000 mls/hr ASDIR STA Administration Potassium Chloride 40 meq 04/11/19 03:12 04/11/19 03:40 Potassium Chloride Oral Liquid PO 04/11/19 03:13 40 meq ONCE ONE Administration Potassium Chloride 40 meq 04/11/19 04:39 04/11/19 05:17 K-Dur - PO 04/11/19 04:40 40 meq ONCE ONE Administration Medical Decision Making - Medical Decision Making 04/11/19 07:[address] Blanco. Patient is a 48 yo female w/ pmh of HTN and IBS who presents for evaluation of lightheaded feeling w/ nausea and weakness for 2 days. Patient noted to have elevated Cr on initial evaluation, thought 2/ 2 dehyrdation. 2nd BMP yielded concern for hypokalemia. Patient given IV K and will be re-evaluated. 04/11/19 12:21 Repeat BMP improved as below. Patient reporting improvement of symptoms. No concern for acute process at this time. Patient advised to f/u w/ PCP for further evaluation and eat more frequent meals as tolerable. Discharging to home. Laboratory Results - last 24 hr 04/11/19 04/11/19 04/11/19 01:55 01:55 01:56 WBC 7.4 RBC 4.51 Hgb 13.8 Hct 40.7 MCV 90.2 MCH 30.5 MCHC 33.9 RDW 12.9 Plt Count 191 MPV 9.5 D Sodium 137 Potassium 3.0 L Chloride 99 Carbon Dioxide 28 Anion Gap 10 BUN 28 H Creatinine 2.3 H Est GFR (CKD-EPI)AfAm 27.79 Est GFR (CKD-EPI)NonAf 23.98 Random Glucose 74 Calcium 9.5 Total Bilirubin 0.5 AST 12 L ALT 22 Alkaline Phosphatase 93 Troponin I < 0.02 Total Protein 7.1 Albumin 4.3 Urine Color Urine Appearance Urine pH Ur Specific [place] Urine Protein Urine Glucose (UA) Urine Ketones Urine Blood Urine Nitrite Urine Bilirubin Urine Urobilinogen Ur Leukocyte Esterase 04/11/19 04/11/19 04/11/19 05:45 06:00 11:38 WBC RBC Hgb Hct MCV MCH MCHC RDW Plt Count MPV Sodium 140 141 Potassium 2.9 L* 3.6 Chloride 105 106 Carbon Dioxide 26 28 Anion Gap 9 7 L BUN 24 H 20 H Creatinine 1.7 H 1.4 H Est GFR (CKD-EPI)AfAm 40.05 50.65 Est GFR (CKD-EPI)NonAf 34.56 43.70 Random Glucose 67 L 75 Calcium 8.5 8.7 Total Bilirubin AST ALT Alkaline Phosphatase Troponin I Total Protein Albumin Urine Color Yellow Urine Appearance Clear Urine pH 5.0 Ur Specific [place] 1.013 Urine Protein Negative Urine Glucose (UA) Negative Urine Ketones 1+ H Urine Blood Negative Urine Nitrite Negative Urine Bilirubin Negative Urine Urobilinogen 0.2 Ur Leukocyte Esterase Negative *DC/Admit/Observation/Transfer Diagnosis at time of Disposition: Dehydration - Discharge Dispostion Disposition: HOME Condition at time of disposition: Stable - Referrals Referrals: Alden Jolly MD [Primary Care Provider] - - Patient Instructions Additional Instructions: You were seen in the Emergency Department for dehydration You were treated with IV fluids. You are being discharged home. Continue taking your home medications as directed. Make sure to remain well hydrated and drink at least 6-8 glasses of water a day. Follow up with your primary care physician within one- two days after discharge. Return to the nearest Emergency Department if you experience fevers, chills shortness of breath, chest pain, palpitations, abdominal pain, nausea, vomiting , fall, loss of consciousness, any trauma. - Post Discharge Activity
[2019-04-11] MEDS ORDERED: KCL 10 MEQ IVPB 10 MEQ/100 ML INFUS.BAG IVPB SCH (07:45)
[2019-04-11] MEDS ORDERED: KCL 10 MEQ IVPB 10 MEQ/100 ML INFUS.BAG IVPB ONE ×2 (08:20→09:37)
[2019-04-11] MEDS ORDERED: POTASSIUM CHLORIDE TABS 10 MEQ TABLET.ER (FP) ONE (08:20)
[2019-04-11] MEDS: KCL 10 MEQ IVPB 10 MEQ/100 ML INFUS.BAG IVPB SCH ×2 (08:55→09:48)
[2019-04-11 12:12] LABS: CALCIUM 8.7 mg/dL (8.5-10.1); CREATININE 1.4 mg/dL (0.55-1.3); POTASSIUM 3.6 mmol/L (3.5-5.1)
[2019-04-11 12:28] VITALS: BP 104/67; PULSE 65; TEMP 97.9
--- NOTE | 2019-04-11 15:08 | EKG ---
Test Reason : Blood Pressure : / mmHG Vent. Rate : 059 BPM Atrial Rate : 059 BPM P-R Int : 214 ms QRS Dur : 100 ms QT Int : 454 ms P-R-T Axes : 059 024 016 degrees QTc Int : 449 ms POOR DATA QUALITY, INTERPRETATION MAY BE ADVERSELY AFFECTED SINUS BRADYCARDIA WITH 1ST DEGREE A-V BLOCK Confirmed by DANTE HILARIO MD ([id number]) on 04/11/2019 3:07:59 PM Referred By: Confirmed By:DANTE HILARIO MD
== END 2019-04-11 12:42 | disposition home or self-care (01) ==
LOC: JER 00:51
PROC: 3E033GC Introduction of Other Therapeutic Substance into Peripheral Vein, Percutaneous Approach (ICD-10-PCS; principal; 2019-04-11)
PROC: 3E0337Z Introduction of Electrolytic and Water Balance Substance into Peripheral Vein, Percutaneous Approach (ICD-10-PCS; 2019-04-11)
DX: E86.0 Dehydration (principal); I10 Essential (primary) hypertension; K58.1 Irritable bowel syndrome with constipation
CPT/HCPCS: 36415; 80048; 80053; 81003; 84484; 85027; 93005; 93010; 96361; 96365; 99284-25; J7030

== ENCOUNTER 2019-09-18 08:28 | Emergency (ER) | payer OTHER ==
[2019-09-18 08:33] VITALS: BP 107/41; PULSE 86; TEMP 97.8; BMI 25.5
--- NOTE | 2019-09-18 09:25 | PDOC ---
History of Present Illness - General Chief Complaint: Sore Throat Stated Complaint: COUGHING/ SWOLLEN GLANDS Time Seen by Provider: 09/18/19 08:48 - History of Present Illness Initial Comments: 09/18/19 09:19 CHIEF COMPLAINT: cough HISTORY OF PRESENT ILLNESS: 49 yo F presents to [facility] with cough and sore throat. Patient states she has had a cough for the past three days and woke up this morning feeling like she had "swollen tonsils." Patient has taken Theraflu with minimal relief. Patient denies any fever, vomiting, diarrhea. No recent travel or sick contacts. PAST MEDICAL HISTORY: Denies past medical history FAMILY HISTORY: Denies SOCIAL HISTORY: Denies tobacco, alcohol, illicit drug use. SURGICAL HISTORY: Denies ALLERGIES: No known drug allergies REVIEW OF SYSTEMS General/Constitutional: Denies fever or chills. Denies weakness, weight change. HEENT: Sore throat. Denies change in vision. Denies ear pain or discharge. Cardiovascular: Denies chest pain or shortness of breath. Respiratory: Denies cough, wheezing, or hemoptysis. Gastrointestinal: Denies nausea, vomiting, diarrhea or constipation. Denies rectal bleeding. Genitourinary: Denies dysuria, frequency, or change in urination. Musculoskeletal: Denies joint or muscle swelling or pain. Denies neck or back pain. Skin and breasts: Denies rash or easy bruising. Neurologic: Denies headache, vertigo, loss of consciousness, or loss of sensation. Psychiatric: Denies depression or anxiety. PHYSICAL EXAM General Appearance: Well-appearing, appropriately dressed. No apparent distress , no intoxication. HEENT: Post nasal drip appreciated. Tonsils non erythematous without erythema or exudate, 1+ b/l. EOMI, PERRLA, normal ENT inspection, normal voice, TMs normal, pharynx normal. No conjunctival pallor. No photophobia, scleral icterus. Neck: Supple. Trachea midline. No tenderness, rigidity, carotid bruit, stridor , lymphadenopathy, or thyromegaly. Respiratory/Chest: Lungs CTAB. No shortness of breath, chest tenderness, respiratory distress, accessory muscle use. No crackles, rales, rhonchi, stridor , wheezing, dullness Cardiovascular: RRR. S1, S2. No JVD, murmur, bradycardia, tachycardia. Vascular Pulses: Dorsalis-Pedis (R): 2+, Dorsalis-Pedis (L): 2+ Gastrointestinal/Abdominal: Normal bowel sounds. Abdomen soft, non-distended. No tenderness or rebound tenderness. No organomegaly, pulsatile mass, guarding , hernia, hepatomegaly, splenomegaly. Lymphatic: No adenopathy, tenderness. Musculoskeletal/Extremities: Normal inspection. FROM of all extremities, normal capillary refill. Pelvis Stable. No CVA tenderness. No tenderness to extremities, pedal edema, swelling, erythema or deformity. Integumentary: Appropriate color, dry, warm. No cyanosis, erythema, jaundice or rash Neurologic: information writer II-XII intact. Fully oriented, alert. Appropriate mood/affect. Motor strength 5/5. No appreciable EOM palsy, facial droop or sensory deficit. Past History - Past Medical History Allergies/Adverse Reactions: Allergies Allergy/AdvReac Type Severity Reaction Status Date / Time morphine Allergy Vomiting Verified 09/18/19 08:34 Nuts Allergy Intermediate Swelling Uncoded 09/18/19 08:34 Home Medications: Ambulatory Orders Hydrochlorothiazide [Hctz -] 25 mg PO DAILY 04/27/17 Lisinopril [Prinivil] 20 mg PO DAILY 05/11/18 Benzonatate [Tessalon Pearls -] 100 mg PO TID #21 capsule 09/18/19 Pseudoephedrine HCl [Pseudoephedrine ER] 120 mg PO BID #20 tablet.er 09/18/19 COPD: No GI Disorders: Yes (IBS/colitis/chron's/upper/lower bowl schemia) HTN: Yes - Surgical History Abdominal Surgery: Yes (partial hysterectomy) Orthopedic Surgery: Yes (ARTHROSCOPY R KNEE) - Immunization History Immunization Up to Date: Yes - Psycho Social/Smoking Cessation Hx Smoking Status: No Smoking History: Never smoked Have you smoked in the past 12 months: No Number of Cigarettes Smoked Daily: 0 Cigars Per Day: 0 Hx Alcohol Use: No Drug/Substance Use Hx: No Substance Use Type: None Hx Substance Use Treatment: No *Physical Exam - Vital Signs Last Vital Signs Temp Pulse Resp BP Pulse Ox 97.8 F 86 16 107/41 L 100 09/18/19 08:31 09/18/19 08:31 09/18/19 08:31 09/18/19 08:31 09/18/19 08:31 Medical Decision Making - Medical Decision Making 09/18/19 09:25 49 yo F presents to [facility] with cough and sore throat. Clinical presentation consistent with viral URI. Will treat symptomatically. Discharge - Discharge Information Problems reviewed: Yes Clinical Impression/Diagnosis: Viral upper respiratory infection Condition: Stable Disposition: HOME - Admission No - Additional Discharge Information Prescriptions: Benzonatate [Tessalon Pearls -] 100 mg PO TID #21 capsule Pseudoephedrine HCl [Pseudoephedrine ER] 120 mg PO BID #20 tablet.er - Follow up/Referral Referrals: Alden Jolly MD [Primary Care Provider] - - Patient Discharge Instructions Patient Printed Discharge Instructions: DI for Viral Upper Respiratory Infection -- Adult - Post Discharge Activity Work/Back to School Note: Back to Work
== END 2019-09-18 09:37 | disposition home or self-care (01) ==
LOC: JERFT 08:28
DX: J06.9 Acute upper respiratory infection, unspecified (principal); B97.89 Other viral agents as the cause of diseases classified elsewhere; I10 Essential (primary) hypertension; Z88.6 Allergy status to analgesic agent; Z91.018 Allergy to other foods; Z87.19 Personal history of other diseases of the digestive system; Z90.79 Acquired absence of other genital organ(s)
CPT/HCPCS: 99281-25

== ENCOUNTER 2019-11-25 22:37 | Emergency (ER) | payer OTHER ==
[2019-11-25 22:46] VITALS: BP 139/77; PULSE 70; TEMP 97.7; BMI 25.0
--- NOTE | 2019-11-26 02:37 | PDOC ---
History of Present Illness - General Chief Complaint: Headache Stated Complaint: DEHYDRATION,NOSE BLEED,MIGRAINS Time Seen by Provider: 11/26/19 02:37 - History of Present Illness Initial Comments: 49 year old female with history of hypertension, IBS (constipation predominant) , gastric sleeve( 2018), hysterectomy (2011), and chronic sinus issues presenting with headache for the past 1.5 days. 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 She tried some aspirin at home (ibuprofen irritates her stomach) without much relief. Has not tried Tylenol, admits to some mild photophobia but no fevers, neck stiffness, nausea, vomiting, diarrhea, or other symptoms. 11/26/19 03:45 Past History - Past Medical History Allergies/Adverse Reactions: Allergies Allergy/AdvReac Type Severity Reaction Status Date / Time morphine Allergy Vomiting Verified 11/25/19 22:44 Nuts Allergy Intermediate Swelling Uncoded 11/25/19 22:44 Home Medications: Ambulatory Orders Hydrochlorothiazide [Hctz -] 25 mg PO DAILY 04/27/17 Lisinopril [Prinivil] 20 mg PO DAILY 05/11/18 Benzonatate [Tessalon Pearls -] 100 mg PO TID #21 capsule 09/18/19 Pseudoephedrine HCl [Pseudoephedrine ER] 120 mg PO BID #20 tablet.er 09/18/19 COPD: No GI Disorders: Yes (IBS/colitis/chron's/upper/lower bowl schemia) HTN: Yes - Surgical History Abdominal Surgery: Yes (partial hysterectomy) Orthopedic Surgery: Yes (ARTHROSCOPY R KNEE) - Immunization History Immunization Up to Date: Yes - Psycho Social/Smoking Cessation Hx Smoking Status: No Smoking History: Never smoked Have you smoked in the past 12 months: No Number of Cigarettes Smoked Daily: 0 Cigars Per Day: 0 Information on smoking cessation initiated: No Hx Alcohol Use: No Drug/Substance Use Hx: No Substance Use Type: None Hx Substance Use Treatment: No Review of Systems - Review of Systems Constitutional: No: Chills, Diaphoresis, Fever, Loss of Appetite HEENTM: Yes: Nose Congestion. No: Eye Pain, Blurred Vision, Tearing Respiratory: No: Cough, Orthopnea, Shortness of Breath Cardiac (ROS): No: Chest Pain, Irregular Heart Rate, Lightheadedness ABD/GI: No: Constipated, Diarrhea, Nausea, Vomiting : No: Burning, Dysuria, Discharge, Frequency Musculoskeletal: No: Back Pain, Joint Pain, Joint Swelling Integumentary: No: Lesions, Lumps, Pallor Neurological: No: Numbness, Paresthesia, Tremors Psychiatric: No: Anxiety, Depression, Frequent Crying Hematologic/Lymphatic: No: Anemia, Blood Clots, Easy Bleeding *Physical Exam - Vital Signs Last Vital Signs Temp Pulse Resp BP Pulse Ox 97.7 F 70 17 139/77 100 11/25/19 22:41 11/25/19 22:41 11/25/19 22:41 11/25/19 22:41 11/25/19 22:41 - Physical Exam General Appearance: Yes: Nourished HEENT: positive: EOMI, VIC, Normal ENT Inspection, Normal Voice Neck: positive: Trachea midline, Normal Thyroid, Supple. negative: Tender, Rigid Respiratory/Chest: positive: Lungs Clear, Normal Breath Sounds. negative: Chest Tender, Respiratory Distress, Accessory Muscle Use Cardiovascular: positive: Regular Rhythm, Regular Rate Gastrointestinal/Abdominal: positive: Normal Bowel Sounds, Flat, Soft. negative : Tender Musculoskeletal: positive: Normal Inspection. negative: Decreased Range of Motion Extremity: positive: Normal Capillary Refill, Normal Inspection Integumentary: positive: Normal Color, Dry, Warm Neurologic: positive: Fully Oriented, Alert, Normal Mood/Affect, Normal Response , Motor Strength 5/5 ED Treatment Course - LABORATORY CBC & Chemistry Diagram: 11/26/19 03:40 11/26/19 03:40 Medical Decision Making - Medical Decision Making 49 year old female with a headache. No palpable chord, not worse headache of life, labs WNL, head CT negative for IC rpoces but demonstrating right maxillary sinusitis, and patient much improved after NS, Reglan, Toradol, Dexamethasone, and Tylenol. Will DC with Tylenol use instructions and hydration instructions. 11/26/19 03:57 Discharge - Discharge Information Problems reviewed: Yes Clinical Impression/Diagnosis: Headache Qualifiers: Headache type: unspecified Headache chronicity pattern: acute headache Intractability: not intractable Qualified Code(s): R51 - Headache Condition: Stable Disposition: HOME - Admission No - Follow up/Referral Referrals: Alden Jolly MD [Primary Care Provider] - - Patient Discharge Instructions Patient Printed Discharge Instructions: DI for Dehydration -- Adult, DI for Headache Additional Instructions: Please drink plenty of water (at least 4-5 bottles per day) and take Tylenol every 4-6 hours for your headache. Please return to the ED if you have any new or worsening symptoms. - Post Discharge Activity
[2019-11-26] MEDS ORDERED: SODIUM CHLORIDE 0.9% 500 ML INFUS.BAG IV ONE (03:07)
[2019-11-26] MEDS ORDERED: ACETAMINOPHEN 1000 MG/100 ML VIAL (NON FORMULARY) IVPB ONE (03:07)
[2019-11-26] MEDS ORDERED: METOCLOPRAMIDE HCL 10 MG TABLET (FP) PO ONE (03:07)
[2019-11-26] MEDS ORDERED: ACETAMINOPHEN INJECTION 100 ML IVPB ONE (03:23)
[2019-11-26] MEDS ORDERED: METOCLOPRAMIDE HCL INJECTION 10 MG/2 ML VIAL ONE (03:23)
[2019-11-26 03:48] LABS: BASO % 0.6 % (0-2.0); EOS % 2.4 % (0-4.5); HEMATOCRIT 40.2 % (32.4-45.2); HEMOGLOBIN 13.9 GM/dL (10.7-15.3); MCHC 34.6 g/dl (32.0-36.0); MEAN CELL VOLUME 92.5 fl (80-96); MEAN PLT VOLUME 8.6 fl (7.5-11.1); MONO % 12.3 % (3.8-10.2); NEUT % 40.7 % (42.8-82.8); PLATELET COUNT 159 K/MM3 (134-434); RBC 4.35 M/mm3 (3.60-5.2); RDW 13.2 % (11.6-15.6); WHITE BLOOD COUNT 3.5 K/mm3 (4.0-10.0)
[2019-11-26 04:19] LABS: BILIRUBIN,TOTAL 0.4 mg/dL (0.2-1); BLOOD UREA NITROGEN 13.4 mg/dL (7-18); CREATININE 0.9 mg/dL (0.55-1.3); POTASSIUM 3.7 mmol/L (3.5-5.1); TOT PROT 7.1 g/dl (6.4-8.2)
[2019-11-26] MEDS ORDERED: DEXAMETHASONE SOD PHOSPHATE 10 MG/1 ML VIAL IVPUSH ONE (04:19)
[2019-11-26] MEDS ORDERED: KETOROLAC TROMETHAMINE 15 MG/ML VIAL IVPUSH ONE (04:19)
--- NOTE | 2019-11-26 04:25 | PDOC ---
Attending Attestation - Resident Resident Name: Lashell Ruiz - ED Attending Attestation I have performed the following: I have examined & evaluated the patient, The case was reviewed & discussed with the resident, I agree w/resident's findings & plan - HPI HPI: 11/26/19 04:20 see resident hpi - Physicial Exam PE: 11/26/19 04:21 agree with resident exam - Medical Decision Making 11/26/19 49-year-old female with sinus pain and congestion worsened by air travel Patient is afebrile and nontoxic-appearing She has chronic sinusitis but states it feels much worse Will DC with antibiotics, Toradol and steroids in the ED She is somewhat improved after Reglan and Tylenol given on arrival She does have a follow-up with her ENT in 1 week
[2019-11-26] MEDS ORDERED: KETOROLAC TROMETHAMINE 15 MG/ML VIAL ONE (04:47)
[2019-11-26] MEDS ORDERED: DEXAMETHASONE SOD PHOSPHATE 10 MG/1 ML VIAL ONE (04:47)
== END 2019-11-26 05:48 | disposition home or self-care (01) ==
LOC: JER 22:37
PROC: 3E0333Z Introduction of Anti-inflammatory into Peripheral Vein, Percutaneous Approach (ICD-10-PCS; principal; 2019-11-25)
PROC: 3E033NZ Introduction of Analgesics, Hypnotics, Sedatives into Peripheral Vein, Percutaneous Approach (ICD-10-PCS; 2019-11-25)
PROC: 3E0333Z Introduction of Anti-inflammatory into Peripheral Vein, Percutaneous Approach (ICD-10-PCS; 2019-11-25)
DX: R51 Headache (principal); J32.0 Chronic maxillary sinusitis; I10 Essential (primary) hypertension; K58.1 Irritable bowel syndrome with constipation; Z98.84 Bariatric surgery status; Z90.710 Acquired absence of both cervix and uterus; Z88.5 Allergy status to narcotic agent; Z91.018 Allergy to other foods
CPT/HCPCS: 36415; 70450-TC; 80053; 85025; 96374; 96375; 99282-25; J0131; J1100

== ENCOUNTER 2020-06-17 19:22 | Emergency (ER) | payer OTHER ==
[2020-06-17 19:37] VITALS: BMI 27.1
--- NOTE | 2020-06-17 19:55 | PDOC ---
History of Present Illness - General Chief Complaint: Pain, Acute Stated Complaint: FATIGUED/HEADACHE/IRRITIABLE BOWEL - History of Present Illness Initial Comments: 49 yo female with PMH of gastric sleeve (2018), hysterectomy, IBS (constipation), GERD, HTN presents with abdominal pain and distention. Pt has sharp epigastric pain without radiation. She has not had a bowel movement or passed gas for 3 days. She has nausea and decreased oral intake. She complains of bilateral upper and lower extremity cramping of her hands and fingers. She denies fevers, chills, cp, sob, dysuria, bloody stool. Past History - Medical History Allergies/Adverse Reactions: Allergies Allergy/AdvReac Type Severity Reaction Status Date / Time morphine Allergy Vomiting Verified 04/13/20 17:44 Nuts Allergy Intermediate Swelling Uncoded 04/13/20 17:44 Home Medications: Ambulatory Orders Hydrochlorothiazide [Hctz -] 25 mg PO DAILY 04/27/17 Lisinopril [Prinivil] 20 mg PO DAILY 05/11/18 Benzonatate [Tessalon Pearls -] 100 mg PO TID #21 capsule 09/18/19 Pseudoephedrine HCl [Pseudoephedrine ER] 120 mg PO BID #20 tablet.er 09/18/19 Metronidazole 500 mg PO TID 7 Days #21 tablet 06/18/20 COPD: No GI Disorders: Yes (IBS/colitis/chron's/upper/lower bowl schemia) HTN: Yes - Surgical History Abdominal Surgery: Yes (partial hysterectomy) Orthopedic Surgery: Yes (ARTHROSCOPY R KNEE) - Reproductive History Is Patient Now?: No - Immunization History Immunization Up to Date: Yes - Psycho-Social/Smoking History Smoking Status: No Smoking History: Never smoked Have you smoked in the past 12 months: No Number of Cigarettes Smoked Daily: 0 Cigars Per Day: 0 - Substance Abuse Hx (Audit-C & DAST Scrn) How often the patient has a drink containing alcohol: Never Score: In Men: 4 or > Positive; In Women: 3 or > Positive: 0 Screen Result (Pos requires Nsg. Audit-10AR): Negative In the last yr the pt used illegal drug/Rx for NonMed reason: No Score: Yes response is considered Positive: 0 Screen Result (Positive result requires Nsg. DAST-10): Negative Review of Systems - Review of Systems Constitutional: No: Chills, Fever HEENTM: No: Recent change in vision, Double Vision Respiratory: No: Cough, Shortness of Breath Cardiac (ROS): No: Chest Pain, Palpitations ABD/GI: Yes: Constipated, Nausea. No: Diarrhea, Vomiting : No: Dysuria, Discharge, Pain Musculoskeletal: No: Joint Pain, Muscle Weakness Integumentary: No: Erythema, Rash Neurological: Yes: Headache. No: Seizure Psychiatric: No: Anxiety, Depression, Mood Swings Endocrine: No: Intolerance to Cold, Intolerance to Heat *Physical Exam - Vital Signs Last Vital Signs Temp Pulse Resp BP Pulse Ox 98.2 F 88 19 120/77 99 06/17/20 19:31 06/17/20 19:31 06/17/20 19:31 06/17/20 19:31 06/17/20 19:31 - Physical Exam General Appearance: Yes: Appropriately Dressed. No: Apparent Distress HEENT: positive: EOMI, Normal Voice Neck: negative: Tender, Rigid Respiratory/Chest: positive: Lungs Clear, Normal Breath Sounds. negative: Respiratory Distress Cardiovascular: positive: Regular Rhythm, Regular Rate, S1, S2 Gastrointestinal/Abdominal: positive: Normal Bowel Sounds, Tender (LLQ, LUQ, epigastric), Soft, Protuberent, Distended. negative: Pulsatile Mass, Guarding, Rebound, Hernia Musculoskeletal: positive: Normal Inspection. negative: CVA Tenderness Extremity: positive: Normal Inspection, Normal Range of Motion Integumentary: positive: Normal Color, Dry, Warm Neurologic: positive: Fully Oriented, Alert, Normal Mood/Affect ED Treatment Course - LABORATORY CBC & Chemistry Diagram: 06/17/20 20:50 06/17/20 20:50 Medical Decision Making - Medical Decision Making 49 yo female with PMH of gastric sleeve (2018), hysterectomy, IBS (constipation), GERD, HTN presents with abdominal pain and distention CBC, CMP, and Lactic were within normal limits CT abdomen (IV/PO contrast) scan showed small bowel inflammation - infection vs IBD - 7 day course of metronidazole - follow up with Dr. Ace Discharge - Discharge Information Problems reviewed: Yes Clinical Impression/Diagnosis: Inflammatory bowel diseases (IBD) Condition: Stable Disposition: HOME - Admission No - Additional Discharge Information Prescriptions: Metronidazole 500 mg PO TID 7 Days #21 tablet - Follow up/Referral Referrals: Alden Jolly MD [Primary Care Provider] - Carlos Ace MD [Staff Physician] - - Patient Discharge Instructions - Post Discharge Activity
[2020-06-17 21:08] LABS: HEMATOCRIT 36.4 % (32.4-45.2); HEMOGLOBIN 12.5 GM/dL (10.7-15.3); MCH 31.8 pg (25.7-33.7); MCHC 34.3 g/dl (32.0-36.0); MEAN CELL VOLUME 92.6 fl (80-96); MEAN PLT VOLUME 8.7 fl (7.5-11.1); PLATELET COUNT 154 K/MM3 (134-434); RBC 3.93 M/mm3 (3.60-5.2); RDW 12.8 % (11.6-15.6); WHITE BLOOD COUNT 4.8 K/mm3 (4.0-10.0)
[2020-06-17 21:47] LABS: ALBUMIN 3.5 g/dl (3.4-5.0); BILIRUBIN,TOTAL 0.4 mg/dL (0.2-1); CALCIUM 8.6 mg/dL (8.5-10.1); POTASSIUM 3.7 mmol/L (3.5-5.1)
--- NOTE | 2020-06-17 21:53 | PDOC ---
Attending Attestation - Resident Resident Name: Juanis Asif - ED Attending Attestation I have performed the following: I have examined & evaluated the patient, The case was reviewed & discussed with the resident, I agree w/resident's findings & plan, Exceptions are as noted - HPI HPI: 06/18/20 04:59 See resident HPI - Physicial Exam PE: 06/18/20 04:59 Agree with documented exam - Medical Decision Making 06/18/20 05:00 49F hx of ibs, concerning for obstruction vs infection f/u labs, lactate, ct ap dispo per clinical course Discharge - Discharge Information Problems reviewed: Yes Clinical Impression/Diagnosis: Inflammatory bowel diseases (IBD) Condition: Stable Disposition: HOME - Additional Discharge Information Prescriptions: Metronidazole 500 mg PO TID 7 Days #21 tablet - Follow up/Referral Referrals: Carlos Ace MD [Staff Physician] - Alden Jolly MD [Primary Care Provider] - - Patient Discharge Instructions Additional Instructions: You were evaluated today for abdominal discomfort. Follow up with your PCP and GI doctor within 1 week for further monitoring of your condition. Take the antibiotics as directed to treat your intestinal inflammation. Return to the ED if your condition worsens and/or you experience fevers, chills, headache, nausea, vomiting, diarrhea, constipation, abdominal pain, shortness of breath. - Post Discharge Activity
[2020-06-17 23:14] VITALS: BP 106/58; PULSE 66; TEMP 97.5
[2020-06-18] MEDS ORDERED: IBUPROFEN 400 MG TABLET (FP) PO ONE (03:20)
== END 2020-06-18 03:52 | disposition home or self-care (01) ==
LOC: JER 19:22
DX: K52.9 Noninfective gastroenteritis and colitis, unspecified (principal)
CPT/HCPCS: 36415; 74177-TC; 80053; 83605; 85027; 99284-25; Q9967

== ENCOUNTER 2020-07-14 04:55 | Emergency (ER) | payer OTHER ==
--- NOTE | 2020-07-14 05:21 | PDOC ---
History of Present Illness - General Chief Complaint: Back Pain Stated Complaint: BACK PAIN Time Seen by Provider: 07/14/20 05:21 History Source: Patient - History of Present Illness Initial Comments: 07/14/20 05:45 49-year-old female complaining of lower back pain, right paraspinal area with right sided sciatica for the last 2 days. Patient reports that she has taken oxycodone and ibuprofen at home with no significant pain relief.Denies numbness or tingling to the lower extremity, denies incontinence of bowel or urine. Patient has a past medical history of hypertension, herniated disc, chronic low back.. 07/14/20 05:46 Past History - Medical History Allergies/Adverse Reactions: Allergies Allergy/AdvReac Type Severity Reaction Status Date / Time morphine Allergy Vomiting Verified 07/14/20 05:23 Nuts Allergy Intermediate Swelling Uncoded 07/14/20 05:23 Home Medications: Ambulatory Orders Cyclobenzaprine HCl [Flexeril -] 10 mg PO TID PRN #14 tablet 07/14/20 COPD: No GI Disorders: Yes (IBS/colitis/chron's/upper/lower bowl schemia) HTN: Yes - Surgical History Abdominal Surgery: Yes (partial hysterectomy) Orthopedic Surgery: Yes (ARTHROSCOPY R KNEE) - Immunization History Immunization Up to Date: Yes - Psycho-Social/Smoking History Smoking Status: No Smoking History: Never smoked Have you smoked in the past 12 months: No Number of Cigarettes Smoked Daily: 0 Cigars Per Day: 0 Review of Systems - Review of Systems Able to Perform ROS?: Yes Is the patient limited Thai proficient: No Constitutional: No: Symptoms Reported, See HPI, Chills, Diaphoresis, Fever, Loss of Appetite, Malaise, Night Sweats, Weakness, Weight Stable, Unintentional Wgt. Loss, Unexplained wgt Loss, Other : No: Symptoms Reported, See HPI, Burning, Dysuria, Discharge, Frequency, Flank Pain, Hematuria, Incontinence, Pain, Urgency, Testicular Mass, Testicular Swelling, Lesions, Testicular Pain, Other Musculoskeletal: Yes: Back Pain. No: Symptoms Reported, See HPI, Gout, Joint Pain, Joint Swelling, Muscle Pain, Muscle Weakness, Neck Pain, Joint Stiffness, Other *Physical Exam - Vital Signs 07/14/20 05:46 Last Vital Signs Temp Pulse Resp BP Pulse Ox 98.1 F 77 17 101/49 L 99 09/02/20 05:19 07/14/20 05:19 07/14/20 05:19 07/14/20 05:19 07/14/20 05:19 - Physical Exam General Appearance: Yes: Appropriately Dressed Musculoskeletal: positive: Muscle Spasm, Other (right paraspinal area tenderness). negative: Vertebral Tenderness Extremity: positive: Normal Capillary Refill, Normal Inspection, Normal Range of Motion Integumentary: positive: Normal Color, Dry, Warm Neurologic: positive: Fully Oriented, Alert, Normal Mood/Affect Medical Decision Making - Medical Decision Making 07/14/20 06:19 A: low back pain p: toradol Discharge - Discharge Information Problems reviewed: Yes Clinical Impression/Diagnosis: Back pain Qualifiers: Back pain location: low back pain Chronicity: acute Back pain laterality: right Sciatica presence: with sciatica Sciatica laterality: sciatica of right side Qualified Code(s): M54.41 - Lumbago with sciatica, right side Condition: Fair Disposition: HOME - Additional Discharge Information Prescriptions: Cyclobenzaprine HCl [Flexeril -] 10 mg PO TID PRN #14 tablet PRN Reason: Back Pain - Follow up/Referral Referrals: Alden Jolly MD [Primary Care Provider] - Bradly May MD [Staff Physician] - Call tomorrow - Patient Discharge Instructions Patient Printed Discharge Instructions: Low Back Pain Additional Instructions: Do light stretches Apply ice to the area for the first 24 hours. Then alternate with ice and heat after. Take ibuprofen every 6 hours as needed for pain. Take Flexeril as prescribed for muscle spasm. Flexeril can make you sleepy, do not drive or operate heavy machinery after taking the medication. Follow-up with an orthopedic doctor if symptoms persist. A referral was given to you today. Return to the emergency room for any worsening symptoms. - Post Discharge Activity Work/Back to School Note: Back to Work
[2020-07-14 05:23] VITALS: BP 101/49; PULSE 77; TEMP 98.1; BMI 28.0
[2020-07-14] MEDS ORDERED: KETOROLAC TROMETHAMINE 30 MG/1 ML VIAL IM ONE (05:29)
[2020-07-14] MEDS ORDERED: KETOROLAC TROMETHAMINE 30 MG/1 ML VIAL ONE (05:33)
== END 2020-07-14 06:24 | disposition home or self-care (01) ==
LOC: JER 04:55
PROC: 3E0233Z Introduction of Anti-inflammatory into Muscle, Percutaneous Approach (ICD-10-PCS; principal; 2020-07-14)
DX: M54.41 Lumbago with sciatica, right side (principal)
CPT/HCPCS: 99284-25

== ENCOUNTER 2021-01-03 15:57 | Emergency (ER) | payer OTHER ==
[2021-01-03] MEDS ORDERED: ACETAMINOPHEN 1000 MG/100 ML VIAL (NON FORMULARY) IVPB ONE (17:19)
[2021-01-03] MEDS ORDERED: ONDANSETRON 4 MG/2 ML VIAL IVPUSH ONE (17:19)
[2021-01-03] MEDS ORDERED: SODIUM CHLORIDE 1,000 ML IV STA (17:19)
[2021-01-03 17:21] VITALS: TEMP 98.7; BMI 27.8
[2021-01-03] MEDS ORDERED: ACETAMINOPHEN INJECTION 100 ML IVPB ONE (17:42)
[2021-01-03 18:22] LABS: BASO % 0.3 % (0-2.0); EOS % 1.7 % (0-4.5); HEMATOCRIT 43.9 % (32.4-45.2); LYMPH % 25.3 % (8-40); MCH 30.8 pg (25.7-33.7); MCHC 34.2 g/dl (32.0-36.0); MEAN CELL VOLUME 90.1 fl (80-96); MEAN PLT VOLUME 8.7 fl (7.5-11.1); MONO % 11.1 % (3.8-10.2); NEUT % 61.6 % (42.8-82.8); PLATELET COUNT 237 K/MM3 (134-434); RBC 4.87 M/mm3 (3.60-5.2); RDW 12.9 % (11.6-15.6); WHITE BLOOD COUNT 5.8 K/mm3 (4.0-10.0)
[2021-01-03 18:53] LABS: POTASSIUM 3.8 mmol/L (3.5-5.1)
[2021-01-03 18:55] LABS: CALCIUM 9.2 mg/dL (8.5-10.1)
[2021-01-03 18:56] LABS: BLOOD UREA NITROGEN 28.6 mg/dL (7-18); MAGNESIUM 2.4 mg/dL (1.8-2.4)
[2021-01-03 18:59] LABS: CREATININE 1.6 mg/dL (0.55-1.3)
[2021-01-03 19:01] LABS: BILIRUBIN,TOTAL 0.6 mg/dL (0.2-1); TOT PROT 7.3 g/dl (6.4-8.2)
[2021-01-03 19:20] VITALS: BP 116/61; PULSE 79
== END 2021-01-03 22:15 | disposition home or self-care (01) ==
LOC: JER 15:57
PROC: 3E0333Z Introduction of Anti-inflammatory into Peripheral Vein, Percutaneous Approach (ICD-10-PCS; principal; 2021-01-03)
PROC: 3E033GC Introduction of Other Therapeutic Substance into Peripheral Vein, Percutaneous Approach (ICD-10-PCS; 2021-01-03)
PROC: 3E0337Z Introduction of Electrolytic and Water Balance Substance into Peripheral Vein, Percutaneous Approach (ICD-10-PCS; 2021-01-03)
DX: R53.1 Weakness (principal)
CPT/HCPCS: 36415; 80053; 83735; 85025; 99284-25; J0131

== ENCOUNTER 2021-06-06 08:08 | Emergency (ER) | payer OTHER ==
[2021-06-06 08:30] VITALS: BMI 27.1
[2021-06-06] MEDS ORDERED: ONDANSETRON 4 MG/2 ML VIAL IVPUSH ONE (09:04)
[2021-06-06] MEDS ORDERED: ACETAMINOPHEN 1000 MG/100 ML VIAL IVPB ONE (09:05)
[2021-06-06] MEDS ORDERED: LACTATED RINGERS SOLUTION 1000 ML INFUS.BAG IV ONE (09:38)
[2021-06-06] MEDS ORDERED: ACETAMINOPHEN INJECTION 100 ML IVPB ONE (09:48)
[2021-06-06] MEDS ORDERED: ONDANSETRON 4 MG/2 ML VIAL ONE (09:49)
[2021-06-06 09:55] LABS: BASO % 0.6 % (0-2.0); EOS % 1.4 % (0-4.5); HEMATOCRIT 40.3 % (32.4-45.2); HEMOGLOBIN 13.6 GM/dL (10.7-15.3); LYMPH % 35.4 % (8-40); MCH 30.8 pg (25.7-33.7); MCHC 33.9 g/dl (32.0-36.0); MEAN CELL VOLUME 90.9 fl (80-96); MEAN PLT VOLUME 8.7 fl (7.5-11.1); NEUT % 54.6 % (42.8-82.8); PLATELET COUNT 173 10^3/uL (134-434); RBC 4.43 M/mm3 (3.60-5.2); WHITE BLOOD COUNT 3.6 K/mm3 (4.0-10.0)
[2021-06-06 10:14] LABS: CHLORIDE 105 mmol/L (98-107); SODIUM 138 mmol/L (136-145)
[2021-06-06 10:17] LABS: ANION GAP 3 MMOL/L (8-16); CO2 30 mmol/L (21-32); GLUCOSE,RANDOM 74 mg/dL (74-106); LIPASE 183 U/L (73-393)
[2021-06-06 10:20] LABS: CREATININE 0.8 mg/dL (0.55-1.3); SGOT/AST 16 U/L (15-37); SGPT/ALT 59 U/L (13-61)
[2021-06-06 10:21] LABS: BILIRUBIN,TOTAL 0.4 mg/dL (0.2-1); TOT PROT 7.4 g/dl (6.4-8.2)
[2021-06-06 10:23] LABS: ALK PHOS 131 U/L (45-117)
[2021-06-06] MEDS ORDERED: METOCLOPRAMIDE HCL INJECTION 10 MG/2 ML VIAL IVPUSH ONE (11:03)
[2021-06-06] MEDS ORDERED: METOCLOPRAMIDE HCL INJECTION 10 MG/2 ML VIAL ONE (11:11)
[2021-06-06 13:33] VITALS: BP 117/74; PULSE 50; TEMP 97.8
== END 2021-06-06 13:55 | disposition home or self-care (01) ==
LOC: JER 08:08
PROC: 3E033NZ Introduction of Analgesics, Hypnotics, Sedatives into Peripheral Vein, Percutaneous Approach (ICD-10-PCS; principal; 2021-06-06)
PROC: 3E033GC Introduction of Other Therapeutic Substance into Peripheral Vein, Percutaneous Approach (ICD-10-PCS; 2021-06-06)
DX: K59.00 Constipation, unspecified (principal); R51.9 Headache, unspecified; R10.9 Unspecified abdominal pain
CPT/HCPCS: 36415; 70450-TC; 71046-TC-FY; 74177-TC; 80053; 82550; 83605; 83690; 84484; 85025; 85651; 86140; 93005; 93010; 96374; 96375; 99285-25; J0131; Q9967

== ENCOUNTER 2021-07-29 17:31 | Emergency (ER) | payer OTHER ==
[2021-07-29 17:41] VITALS: BP 131/88; PULSE 76; TEMP 98; BMI 27.3
[2021-07-29] MEDS ORDERED: IBUPROFEN 600 MG TABLET (FP) PO ONE ×2 (18:33→18:41)
== END 2021-07-29 20:15 | disposition home or self-care (01) ==
LOC: JER 17:31
DX: R05 Cough (principal); R09.81 Nasal congestion; Z11.52 Encounter for screening for COVID-19
CPT/HCPCS: 99283-25; C9803; U0003; U0005

== ENCOUNTER 2021-10-05 22:57 | Emergency (ER) | payer OTHER ==
[2021-10-05 23:03] VITALS: BP 165/85; PULSE 66; TEMP 98; BMI 27.8
== END 2021-10-06 00:15 | disposition left against medical advice (07) ==
LOC: JER 22:57
DX: K08.89 Other specified disorders of teeth and supporting structures (principal)
CPT/HCPCS: 99281-25

== ENCOUNTER 2021-10-12 20:41 | Inpatient (IN) | payer OTHER ==
[2021-10-13] MEDS ORDERED: FAMOTIDINE 20 MG/50 ML IVPB 20 MG/50 ML MG IVPB ONE ×2 (00:47→01:21)
[2021-10-13] MEDS ORDERED: ACETAMINOPHEN 1000 MG/100 ML VIAL IVPB ONE (00:56)
[2021-10-13] MEDS ORDERED: LIDOCAINE HCL 4% TOPICAL SOLN (50 ML/BOTTLE) MM ONE (00:56)
[2021-10-13] MEDS ORDERED: HYDROCORTISONE 2.5% TOPICAL CREAM 30 GM TUBE TP ONE (01:00)
[2021-10-13] MEDS ORDERED: SODIUM CHLORIDE 0.9% 1000 ML INFUS.BAG IV ONE (01:18)
[2021-10-13] MEDS ORDERED: ACETAMINOPHEN INJECTION 100 ML IVPB ONE ×2 (01:21→06:13)
[2021-10-13 01:33] LABS: BASO % 0.1 % (0-2.0); EOS % 0.1 % (0-4.5); HEMATOCRIT 35.6 % (32.4-45.2); HEMOGLOBIN 12.3 GM/dL (10.7-15.3); MCH 31.3 pg (25.7-33.7); MCHC 34.6 g/dl (32.0-36.0); MEAN CELL VOLUME 90.5 fl (80-96); MEAN PLT VOLUME 8.1 fl (7.5-11.1); MONO % 7.6 % (3.8-10.2); NEUT % 80.2 % (42.8-82.8); PLATELET COUNT 147 10^3/uL (134-434); RBC 3.94 M/mm3 (3.60-5.2); RDW 12.9 % (11.6-15.6); WHITE BLOOD COUNT 7.4 K/mm3 (4.0-10.0)
[2021-10-13 01:39] LABS: INR 1.17 (0.83-1.09); PROTHROMBIN TIME (PATIENT) 13.1 SEC (9.7-13.0)
[2021-10-13 01:51] LABS: CALCIUM 8.5 mg/dL (8.5-10.1)
[2021-10-13 01:52] LABS: ALBUMIN 3.4 g/dl (3.4-5.0); BLOOD UREA NITROGEN 10.8 mg/dL (7-18)
[2021-10-13 01:55] LABS: CREATININE 0.9 mg/dL (0.55-1.3)
[2021-10-13 01:56] LABS: BILIRUBIN,TOTAL 0.5 mg/dL (0.2-1); TOT PROT 6.6 g/dl (6.4-8.2)
[2021-10-13] MEDS ORDERED: POLYETHYLENE GLYCOL (HEALTHYLAX) 3350 17 GM PACKET PO PRN (05:10)
[2021-10-13] MEDS ORDERED: AMOX TR/POT CLAV 875MG/125MG TABLETS (FP) ONE ×2 (05:40→10:19)
[2021-10-13] MEDS: AMOX TR/POT CLAV 875MG/125MG TABLETS (FP) PO SCH ×3 (05:43→21:01)
[2021-10-13] MEDS: ACETAMINOPHEN 1000 MG/100 ML VIAL IVPB PRN ×3 (06:20→20:27)
[2021-10-13] MEDS ORDERED: IBUPROFEN 600 MG TABLET (FP) PO PRN (07:46)
[2021-10-13] MEDS ORDERED: GABAPENTIN 100 MG CAPSULE PO SCH (10:00)
[2021-10-13] MEDS ORDERED: MAGNESIUM OXIDE 400 MG TABLET (FP) PO SCH (10:00)
[2021-10-13] MEDS ORDERED: MAGNESIUM OXIDE 400 MG TABLET (FP) ONE (10:19)
[2021-10-13] MEDS ORDERED: IBUPROFEN 600 MG TABLET (FP) PO ONE (10:27)
[2021-10-13] MEDS: FLUTICASONE PROP 0.05% 16 GM NASAL SPRAY NS SCH ×2 (11:00→21:01)
[2021-10-13] MEDS: ONDANSETRON 4 MG/2 ML VIAL IVPUSH PRN (12:56)
[2021-10-13 17:30] VITALS: BMI 27.9
[2021-10-14] MEDS ORDERED: morphine SULFATE 4 MG/ML VIAL IVPB ONE (01:39)
[2021-10-14] MEDS: ONDANSETRON 4 MG/2 ML VIAL IVPUSH PRN (06:40)
[2021-10-14] MEDS ORDERED: morphine CARPU-JECT 2 MG/1 ML DISP.SYRIN IVPB ONE (09:47)
[2021-10-14 10:10] LABS: BASO % 0.2 % (0-2.0); EOS % 0.8 % (0-4.5); HEMATOCRIT 34.5 % (32.4-45.2); HEMOGLOBIN 11.9 GM/dL (10.7-15.3); LYMPH % 11.4 % (8-40); MCH 31.4 pg (25.7-33.7); MCHC 34.7 g/dl (32.0-36.0); MEAN CELL VOLUME 90.7 fl (80-96); MEAN PLT VOLUME 8.4 fl (7.5-11.1); NEUT % 78.6 % (42.8-82.8); PLATELET COUNT 134 10^3/uL (134-434); RDW 12.7 % (11.6-15.6); WHITE BLOOD COUNT 7.9 K/mm3 (4.0-10.0)
[2021-10-14] MEDS ORDERED: PROPOFOL 20 ML ONE ×2 (10:10)
[2021-10-14] MEDS ORDERED: MIDAZOLAM HCL 2 MG/2 ML SINGLE DOSE VIAL ONE (10:10)
[2021-10-14] MEDS ORDERED: LIDOCAINE HCL/PF 2% SDV 5ML VIAL ONE (10:12)
[2021-10-14 10:39] LABS: ALBUMIN 3.3 g/dl (3.4-5.0); BLOOD UREA NITROGEN 7.6 mg/dL (7-18); CALCIUM 8.6 mg/dL (8.5-10.1)
[2021-10-14 10:42] LABS: CREATININE 0.7 mg/dL (0.55-1.3)
[2021-10-14 10:44] LABS: BILIRUBIN,TOTAL 0.6 mg/dL (0.2-1); TOT PROT 6.2 g/dl (6.4-8.2)
[2021-10-14] MEDS ORDERED: ROCURONIUM BROMIDE 50 MG/5 ML SYRINGE ONE (12:22)
[2021-10-14] MEDS ORDERED: BUPIVACAINE HCL/PF 0.5% (5MG/ML) 10 ML VIAL ONE (13:31)
[2021-10-14] MEDS ORDERED: DEXAMETHASONE SOD PHOSPHATE 4 MG/1 ML VIAL ONE (14:26)
[2021-10-14] MEDS ORDERED: POLYETHYLENE GLYCOL (HEALTHYLAX) 3350 17 GM PACKET PO PRN (14:58)
[2021-10-14] MEDS ORDERED: ONDANSETRON 4 MG/2 ML VIAL IVPUSH PRN (14:58)
[2021-10-14] MEDS ORDERED: MAGNESIUM CITRATE 300 ML BOTTLE PO ONE (17:00)
[2021-10-14] MEDS: AMOX TR/POT CLAV 875MG/125MG TABLETS (FP) PO SCH (21:50)
[2021-10-14] MEDS: FLUTICASONE PROP 0.05% 16 GM NASAL SPRAY NS SCH (21:51)
[2021-10-15] MEDS ORDERED: ACETAMINOPHEN 1000 MG/100 ML VIAL IVPB ONE (03:28)
[2021-10-15] MEDS ORDERED: PT OWN MED DRAWER 7, Y5N ONE (10:24)
[2021-10-15 10:25] LABS: BASO % 0.2 % (0-2.0); EOS % 0.7 % (0-4.5); HEMATOCRIT 33.1 % (32.4-45.2); HEMOGLOBIN 11.4 GM/dL (10.7-15.3); LYMPH % 14.8 % (8-40); MCH 31.2 pg (25.7-33.7); MCHC 34.4 g/dl (32.0-36.0); MEAN CELL VOLUME 90.7 fl (80-96); MEAN PLT VOLUME 8.5 fl (7.5-11.1); MONO % 7.9 % (3.8-10.2); NEUT % 76.4 % (42.8-82.8); PLATELET COUNT 142 10^3/uL (134-434); RBC 3.65 M/mm3 (3.60-5.2); RDW 12.9 % (11.6-15.6); WHITE BLOOD COUNT 7.8 K/mm3 (4.0-10.0)
[2021-10-15] MEDS: FLUTICASONE PROP 0.05% 16 GM NASAL SPRAY NS SCH ×2 (10:44→21:20)
[2021-10-15] MEDS: AMOX TR/POT CLAV 875MG/125MG TABLETS (FP) PO SCH (10:44)
[2021-10-15] MEDS: MAGNESIUM OXIDE 400 MG TABLET (FP) PO SCH (10:44)
[2021-10-15] MEDS: GABAPENTIN 100 MG CAPSULE PO SCH (10:44)
[2021-10-15 11:02] LABS: ALBUMIN 2.9 g/dl (3.4-5.0); CALCIUM 8.5 mg/dL (8.5-10.1)
[2021-10-15 11:03] LABS: MAGNESIUM 2.2 mg/dL (1.8-2.4)
[2021-10-15 11:06] LABS: CREATININE 0.9 mg/dL (0.55-1.3)
[2021-10-15 11:07] LABS: TOT PROT 5.9 g/dl (6.4-8.2)
[2021-10-15 11:09] LABS: BILIRUBIN,TOTAL 0.5 mg/dL (0.2-1)
[2021-10-15] MEDS: ACETAMINOPHEN 325 MG TABLET (FP) PO PRN (11:36)
[2021-10-15] MEDS: HYDROCORTISONE 2.5% TOPICAL CREAM 30 GM TUBE RC SCH (12:23)
[2021-10-16] MEDS ORDERED: DOCUSATE SODIUM 100 MG CAPSULE (FP) PO ONE (02:05)
[2021-10-16] MEDS: ACETAMINOPHEN 325 MG TABLET (FP) PO PRN (02:13)
[2021-10-16] MEDS: DOCUSATE SODIUM 100 MG CAPSULE (FP) PO SCH ×3 (06:10→21:36)
[2021-10-16] MEDS ORDERED: PT OWN MED DRAWER 7, Y5N ONE (09:18)
[2021-10-16] MEDS: GABAPENTIN 100 MG CAPSULE PO SCH (09:26)
[2021-10-16] MEDS: FLUTICASONE PROP 0.05% 16 GM NASAL SPRAY NS SCH ×2 (09:26→21:36)
[2021-10-16] MEDS: MAGNESIUM OXIDE 400 MG TABLET (FP) PO SCH (09:26)
[2021-10-16] MEDS: HYDROCORTISONE 2.5% TOPICAL CREAM 30 GM TUBE RC SCH (09:27)
[2021-10-16 09:48] LABS: BASO % 0.2 % (0-2.0); EOS % 2.1 % (0-4.5); HEMATOCRIT 33.1 % (32.4-45.2); HEMOGLOBIN 11.3 GM/dL (10.7-15.3); LYMPH % 21.1 % (8-40); MCH 31.3 pg (25.7-33.7); MEAN CELL VOLUME 91.9 fl (80-96); MEAN PLT VOLUME 8.9 fl (7.5-11.1); MONO % 8.3 % (3.8-10.2); NEUT % 68.3 % (42.8-82.8); PLATELET COUNT 139 10^3/uL (134-434); RDW 12.9 % (11.6-15.6); WHITE BLOOD COUNT 4.5 K/mm3 (4.0-10.0)
[2021-10-16] MEDS ORDERED: ACETAMINOPHEN 1000 MG/100 ML VIAL IVPB PRN (09:59)
[2021-10-16 10:08] LABS: CALCIUM 8.2 mg/dL (8.5-10.1)
[2021-10-16 10:09] LABS: ALBUMIN 2.9 g/dl (3.4-5.0); BLOOD UREA NITROGEN 11.2 mg/dL (7-18); MAGNESIUM 2.2 mg/dL (1.8-2.4)
[2021-10-16 10:12] LABS: CREATININE 0.8 mg/dL (0.55-1.3)
[2021-10-16 10:13] LABS: BILIRUBIN,TOTAL 0.5 mg/dL (0.2-1)
[2021-10-16 10:14] LABS: TOT PROT 5.8 g/dl (6.4-8.2)
[2021-10-16] MEDS: BISACODYL 5 MG TABLET.DR (FP) PO PRN (12:53)
[2021-10-17] MEDS: DOCUSATE SODIUM 100 MG CAPSULE (FP) PO SCH (06:04)
[2021-10-17] MEDS ORDERED: POLYETHYLENE GLYCOL (HEALTHYLAX) 3350 17 GM PACKET PO PRN (08:26)
[2021-10-17] MEDS: IBUPROFEN 600 MG TABLET (FP) PO PRN ×2 (08:58→16:30)
[2021-10-17] MEDS ORDERED: HYDROCORTISONE ACETATE 25 MG/SUPP.RECT RC ONE (10:00)
[2021-10-17] MEDS ORDERED: RIFAXIMIN 550 MG TABLET PO SCH (10:00)
[2021-10-17 10:24] LABS: BASO % 0.4 % (0-2.0); EOS % 2.1 % (0-4.5); HEMATOCRIT 36.2 % (32.4-45.2); HEMOGLOBIN 12.6 GM/dL (10.7-15.3); LYMPH % 25.8 % (8-40); MCH 31.3 pg (25.7-33.7); MCHC 34.7 g/dl (32.0-36.0); MEAN CELL VOLUME 90.1 fl (80-96); MEAN PLT VOLUME 8.9 fl (7.5-11.1); MONO % 10.9 % (3.8-10.2); NEUT % 60.8 % (42.8-82.8); PLATELET COUNT 183 10^3/uL (134-434); RBC 4.02 M/mm3 (3.60-5.2); WHITE BLOOD COUNT 4.5 K/mm3 (4.0-10.0)
[2021-10-17 10:33] LABS: ALBUMIN 3.3 g/dl (3.4-5.0); BLOOD UREA NITROGEN 7.6 mg/dL (7-18); CALCIUM 8.8 mg/dL (8.5-10.1); MAGNESIUM 2.3 mg/dL (1.8-2.4)
[2021-10-17 10:37] LABS: CREATININE 0.9 mg/dL (0.55-1.3)
[2021-10-17 10:38] LABS: BILIRUBIN,TOTAL 0.5 mg/dL (0.2-1); TOT PROT 6.6 g/dl (6.4-8.2)
[2021-10-17] MEDS: MAGNESIUM OXIDE 400 MG TABLET (FP) PO SCH (10:59)
[2021-10-17] MEDS: FLUTICASONE PROP 0.05% 16 GM NASAL SPRAY NS SCH ×3 (10:59→21:57)
[2021-10-17] MEDS: RIFAXIMIN 550 MG TABLET PO SCH ×2 (10:59→21:56)
[2021-10-17] MEDS: GABAPENTIN 100 MG CAPSULE PO SCH (10:59)
[2021-10-17] MEDS: HYDROCORTISONE 2.5% TOPICAL CREAM 30 GM TUBE RC SCH (10:59)
[2021-10-17] MEDS ORDERED: POTASSIUM CHLORIDE TABS 20 MEQ TABLET.ER (FP) PO ONE (13:30)
[2021-10-17 22:54] VITALS: TEMP 98
[2021-10-18 05:16] VITALS: BP 118/69; PULSE 70
[2021-10-18] MEDS: ACETAMINOPHEN 325 MG TABLET (FP) PO PRN (05:39)
[2021-10-18] MEDS: BISACODYL 5 MG TABLET.DR (FP) PO PRN ×2 (05:40→10:31)
[2021-10-18] MEDS: RIFAXIMIN 550 MG TABLET PO SCH (10:14)
[2021-10-18] MEDS: GABAPENTIN 100 MG CAPSULE PO SCH (10:14)
[2021-10-18] MEDS: MAGNESIUM OXIDE 400 MG TABLET (FP) PO SCH (10:14)
[2021-10-18] MEDS: FLUTICASONE PROP 0.05% 16 GM NASAL SPRAY NS SCH (10:15)
[2021-10-18] MEDS: HYDROCORTISONE 2.5% TOPICAL CREAM 30 GM TUBE RC SCH (10:15)
[2021-10-18] MEDS: IBUPROFEN 600 MG TABLET (FP) PO PRN (10:32)
== END 2021-10-18 14:29 | disposition home or self-care (01) | DRG 247 ==
LOC: JER 20:41 → JERBED 10-13 04:29 → J6S 10-13 12:16
PROVIDERS: ADMIT Internal Medicine; ATTEND Family Medicine
PROC: 3E1H78Z Irrigation of Lower GI using Irrigating Substance, Via Natural or Artificial Opening (ICD-10-PCS; principal; 2021-10-14 11:00)
DX: K56.41 Fecal impaction (principal); I10 Essential (primary) hypertension; K50.90 Crohn's disease, unspecified, without complications; K56.49 Other impaction of intestine; K62.5 Hemorrhage of anus and rectum; Z98.84 Bariatric surgery status; K64.4 Residual hemorrhoidal skin tags
CPT/HCPCS: 36415; 74019-TC-FY; 74177-TC; 80048; 80053; 82272; 83605; 83690; 83735; 85025; 85610; 85730; 86850; 86900; 86901; 94760; 99285-25; C9803; J0131; Q9967; U0003; U0005

== ENCOUNTER 2022-01-27 08:44 | Emergency (ER) | payer OTHER ==
[2022-01-27 08:54] VITALS: BP 107/71; PULSE 99; TEMP 97.2; BMI 28.2
[2022-01-27] MEDS ORDERED: SODIUM CHLORIDE 1,000 ML IV STA (09:50)
[2022-01-27] MEDS ORDERED: KETOROLAC TROMETHAMINE 30 MG/1 ML VIAL IVPUSH ONE (09:50)
[2022-01-27] MEDS ORDERED: ONDANSETRON 4 MG/2 ML VIAL IVPUSH ONE (09:51)
[2022-01-27] MEDS ORDERED: KETOROLAC TROMETHAMINE 30 MG/1 ML VIAL ONE (10:11)
[2022-01-27] MEDS ORDERED: ONDANSETRON 4 MG/2 ML VIAL ONE (10:11)
[2022-01-27 10:59] LABS: BASO % 0.3 % (0-2.0); EOS % 0.4 % (0-4.5); HEMATOCRIT 41.5 % (32.4-45.2); HEMOGLOBIN 14.2 GM/dL (10.7-15.3); LYMPH % 12.9 % (8-40); MCH 31.2 pg (25.7-33.7); MCHC 34.2 g/dl (32.0-36.0); MEAN CELL VOLUME 91.3 fl (80-96); MEAN PLT VOLUME 8.6 fl (7.5-11.1); MONO % 7.4 % (3.8-10.2); PLATELET COUNT 166 10^3/uL (134-434); RBC 4.55 M/mm3 (3.60-5.2); RDW 13.2 % (11.6-15.6); WHITE BLOOD COUNT 5.7 K/mm3 (4.0-10.0)
[2022-01-27 11:22] LABS: CALCIUM 9.3 mg/dL (8.5-10.1)
[2022-01-27 11:23] LABS: BLOOD UREA NITROGEN 14.9 mg/dL (7-18)
[2022-01-27 11:26] LABS: BILIRUBIN,TOTAL 0.4 mg/dL (0.2-1); TOT PROT 6.9 g/dl (6.4-8.2)
[2022-01-27] MEDS ORDERED: ACETAMINOPHEN 1000 MG/100 ML BAG IVPB ONE (11:37)
[2022-01-27] MEDS ORDERED: ACETAMINOPHEN INJECTION 100 ML IVPB ONE (11:38)
[2022-01-27 14:19] LABS: URINE APPEARANCE CLEAR; URINE BILIRUBIN NEGATIVE (NEGATIVE); URINE COLOR DK YELLOW; URINE GLUCOSE (UA) NEGATIVE (NEGATIVE); URINE KETONE TRACE (NEGATIVE); URINE LEUK ESTERASE NEGATIVE (NEGATIVE); URINE NITRITE NEGATIVE (NEGATIVE); URINE PROTEIN NEGATIVE (NEGATIVE); URINE UROBILINOGEN 0.2 mg/dL (0.2-1.0)
== END 2022-01-27 14:26 | disposition home or self-care (01) ==
LOC: JER 08:44
PROC: 3E0333Z Introduction of Anti-inflammatory into Peripheral Vein, Percutaneous Approach (ICD-10-PCS; principal; 2022-01-27)
PROC: 3E0333Z Introduction of Anti-inflammatory into Peripheral Vein, Percutaneous Approach (ICD-10-PCS; 2022-01-27)
PROC: 3E033GC Introduction of Other Therapeutic Substance into Peripheral Vein, Percutaneous Approach (ICD-10-PCS; 2022-01-27)
PROC: 3E0337Z Introduction of Electrolytic and Water Balance Substance into Peripheral Vein, Percutaneous Approach (ICD-10-PCS; 2022-01-27)
DX: R10.9 Unspecified abdominal pain (principal); Z87.19 Personal history of other diseases of the digestive system
CPT/HCPCS: 36415; 80053; 81003; 83690; 85025; 87086; 87186; 99284-25

== ENCOUNTER 2022-05-11 11:05 | Emergency (ER) | payer OTHER ==
[2022-05-11 11:15] VITALS: BP 108/69; PULSE 78; TEMP 98.1; BMI 22.2
[2022-05-11] MEDS ORDERED: ONDANSETRON 4 MG/2 ML VIAL IVPUSH ONE (13:00)
[2022-05-11] MEDS ORDERED: ACETAMINOPHEN 1000 MG/100 ML BAG IVPB ONE (13:00)
[2022-05-11] MEDS ORDERED: SODIUM CHLORIDE 0.9% 500 ML INFUS.BAG IV ONE (13:00)
[2022-05-11] MEDS ORDERED: ONDANSETRON 4 MG/2 ML VIAL ONE (13:25)
[2022-05-11] MEDS ORDERED: ACETAMINOPHEN INJECTION 100 ML IVPB ONE (13:25)
[2022-05-11 14:11] LABS: BASO % 0.5 % (0-2.0); HEMOGLOBIN 12.8 GM/dL (10.7-15.3); LYMPH % 24.7 % (8-40); MCH 31.1 pg (25.7-33.7); MCHC 34.7 g/dl (32.0-36.0); MEAN CELL VOLUME 89.6 fl (80-96); MEAN PLT VOLUME 8.4 fl (7.5-11.1); MONO % 8.3 % (3.8-10.2); NEUT % 65.5 % (42.8-82.8); PLATELET COUNT 176 10^3/uL (134-434); RBC 4.13 M/mm3 (3.60-5.2); RDW 13.7 % (11.6-15.6); WHITE BLOOD COUNT 4.6 K/mm3 (4.0-10.0)
[2022-05-11 14:34] LABS: CALCIUM 8.9 mg/dL (8.5-10.1)
[2022-05-11 14:35] LABS: BLOOD UREA NITROGEN 11.5 mg/dL (7-18)
[2022-05-11 14:42] LABS: ALBUMIN 3.9 g/dl (3.4-5.0); BILIRUBIN,TOTAL 0.3 mg/dL (0.2-1); CREATININE 0.9 mg/dL (0.55-1.3); TOT PROT 6.7 g/dl (6.4-8.2)
[2022-05-11 16:46] LABS: PH,URINE 5.5 (5.0-8.0); URINE APPEARANCE CLEAR; URINE BILIRUBIN NEGATIVE (NEGATIVE); URINE COLOR YELLOW; URINE GLUCOSE (UA) NEGATIVE (NEGATIVE); URINE KETONE TRACE (NEGATIVE); URINE LEUK ESTERASE NEGATIVE (NEGATIVE); URINE NITRITE NEGATIVE (NEGATIVE); URINE PROTEIN NEGATIVE (NEGATIVE); URINE UROBILINOGEN 0.2 mg/dL (0.2-1.0)
== END 2022-05-11 18:05 | disposition home or self-care (01) ==
LOC: JER 11:05
PROC: 3E0333Z Introduction of Anti-inflammatory into Peripheral Vein, Percutaneous Approach (ICD-10-PCS; principal; 2022-05-11)
PROC: 3E033GC Introduction of Other Therapeutic Substance into Peripheral Vein, Percutaneous Approach (ICD-10-PCS; 2022-05-11)
DX: R10.30 Lower abdominal pain, unspecified (principal)
CPT/HCPCS: 36415; 80053; 81003; 83690; 84703; 85025; 87086; 87186; 99284-25

== ENCOUNTER 2022-10-07 19:02 | Emergency (ER) | payer OTHER ==
[2022-10-07 20:16] VITALS: BP 116/50; PULSE 60; RESP 20; TEMP 98.1; BMI 28.7
[2022-10-07] MEDS ORDERED: ACETAMINOPHEN 500 MG TABLET (FP) PO ONE (21:58)
[2022-10-07] MEDS ORDERED: ACETAMINOPHEN 500 MG TABLET (FP) ONE (22:04)
[2022-10-08 02:14] LABS: EPI CELLS 8 /uL (0-25.1); HYALINE CASTS 1 /uL (0-3.1); PH,URINE 5.5 (5.0-8.0); URINE APPEARANCE CLEAR; URINE BACTERIA 7622 /uL (0-1359); URINE BILIRUBIN NEGATIVE (NEGATIVE); URINE COLOR YELLOW; URINE GLUCOSE (UA) NEGATIVE (NEGATIVE); URINE KETONE NEGATIVE (NEGATIVE); URINE LEUK ESTERASE NEGATIVE (NEGATIVE); URINE NITRITE POSITIVE (NEGATIVE); URINE PROTEIN NEGATIVE (NEGATIVE); URINE RBC 5 /uL (0-23.9); URINE UROBILINOGEN 0.2 mg/dL (0.2-1.0); URINE WBC 42 /uL (0-25.8)
== END 2022-10-08 02:49 | disposition home or self-care (01) ==
LOC: JER 19:02
DX: N39.0 Urinary tract infection, site not specified (principal)
CPT/HCPCS: 76830-TC; 81003; 87086; 87186; 99283-25

== ENCOUNTER 2024-04-23 11:21 | Emergency (ER) | payer OTHER ==
[2024-04-23 12:24] VITALS: BP 130/77; PULSE 75; RESP 18; TEMP 98.5; BMI 29.3
== END 2024-04-23 13:25 | disposition home or self-care (01) ==
LOC: JER 11:21
DX: M25.561 Pain in right knee (principal); M25.562 Pain in left knee; G89.29 Other chronic pain
CPT/HCPCS: 99283-25

== ENCOUNTER 2024-09-26 12:32 | Observation (INO) | payer OTHER ==
[2024-09-26 12:46] VITALS: BMI 31.8
[2024-09-26 15:01] LABS: BASO % 0.5 % (0-2.0); EOS % 1.8 % (0-4.5); HEMATOCRIT 40.3 % (32.4-45.2); HEMOGLOBIN 13.8 GM/dL (10.7-15.3); MCH 30.6 pg (25.7-33.7); MCHC 34.2 g/dl (32.0-36.0); MEAN CELL VOLUME 89.4 fl (80-96); MEAN PLT VOLUME 8.2 fl (7.5-11.1); MONO % 9.9 % (3.8-10.2); NEUT % 57.8 % (42.8-82.8); PLATELET COUNT 185 10^3/uL (134-434); RBC 4.51 M/mm3 (3.60-5.2); RDW 13.3 % (11.6-15.6); WHITE BLOOD COUNT 4.6 K/mm3 (4.0-10.0)
[2024-09-26 15:08] LABS: INR 0.98 (0.83-1.09); PROTHROMBIN TIME (PATIENT) 11.1 SEC (9.7-13.0)
[2024-09-26 15:11] LABS: ACTIVATED PTT 34.3 SECONDS (25.2-36.5)
[2024-09-26 15:24] LABS: POTASSIUM 3.6 mmol/L (3.5-5.1)
[2024-09-26 15:26] LABS: BLOOD UREA NITROGEN 16.7 mg/dL (7-18); CALCIUM 9.2 mg/dL (8.5-10.1); MAGNESIUM 2.4 mg/dL (1.8-2.4)
[2024-09-26 15:30] LABS: PHOSPHOROUS 3.5 mg/dL (2.5-4.9)
[2024-09-26 15:31] LABS: BILIRUBIN,TOTAL 0.4 mg/dL (0.2-1); TOT PROT 7.1 g/dl (6.4-8.2)
[2024-09-26 16:39] LABS: HIV INTERPRETATION NEGATIVE (NEGATIVE)
[2024-09-26] MEDS ORDERED: MECLIZINE HCL 25 MG TABLET (FP) ONE (18:05)
[2024-09-26] MEDS: MECLIZINE HCL 25 MG TABLET (FP) PO ONE (18:13)
[2024-09-26] MEDS: SODIUM CHLORIDE 0.9% 500 ML INFUS.BAG IV ONE (18:52)
[2024-09-27] MEDS: ONDANSETRON 4 MG/2 ML VIAL IVPUSH ONE (01:11)
[2024-09-27] MEDS: MECLIZINE HCL 25 MG TABLET (FP) PO PRN (01:11)
[2024-09-27] MEDS: HYDROCHLOROTHIAZIDE 25 MG TABLET (FP) PO SCH (09:35)
[2024-09-27] MEDS: LISINOPRIL 20 MG TABLET PO SCH (09:35)
[2024-09-27] MEDS: PANTOPRAZOLE 40 MG TABLET PO SCH (09:35)
[2024-09-27 09:56] LABS: BASO % 0.4 % (0-2.0); EOS % 1.7 % (0-4.5); HEMATOCRIT 38.4 % (32.4-45.2); LYMPH % 41.3 % (8-40); MCH 30.6 pg (25.7-33.7); MCHC 33.8 g/dl (32.0-36.0); MEAN CELL VOLUME 90.6 fl (80-96); MEAN PLT VOLUME 8.8 fl (7.5-11.1); MONO % 5.6 % (3.8-10.2); PLATELET COUNT 163 10^3/uL (134-434); RBC 4.24 M/mm3 (3.60-5.2); RDW 13.4 % (11.6-15.6); WHITE BLOOD COUNT 3.5 K/mm3 (4.0-10.0)
[2024-09-27 10:28] LABS: POTASSIUM 4.3 mmol/L (3.5-5.1)
[2024-09-27 10:37] LABS: BLOOD UREA NITROGEN 11.7 mg/dL (7-18)
[2024-09-27] MEDS: buPROPion HCL 100 MG TABLET PO SCH (10:46)
[2024-09-27 10:51] LABS: CALCIUM 8.8 mg/dL (8.5-10.1)
[2024-09-27] MEDS ORDERED: MAGNESIUM HYDROX 2400MG/30ML ORAL SUSPENSION 30 ML CUP PO PRN (11:47)
[2024-09-27] MEDS: POLYETHYLENE GLYCOL (HEALTHYLAX) 3350 17 GM PACKET PO SCH (12:22)
[2024-09-27] MEDS ORDERED: SODIUM PHOSPHATE/NA BIPHOS 133 ML ENEMA RC ONE (12:40)
[2024-09-27] MEDS: LACTOBACILLUS ACIDOPHILUS 1 TABLET PO SCH (14:30)
[2024-09-27] MEDS: GLYCERIN 1 RECTAL SUPPOSITORY, ADULT RC PRN (14:30)
[2024-09-27 22:29] VITALS: RESP 18
[2024-09-28 14:34] VITALS: BP 122/78; PULSE 81; TEMP 97.9
== END 2024-09-28 17:06 | disposition home or self-care (01) ==
LOC: JER 12:32 → JERBED 20:18 → J7W 09-27 02:12
PROVIDERS: ADMIT Internal Medicine; ATTEND Family Medicine
PROC: 3E033GC Introduction of Other Therapeutic Substance into Peripheral Vein, Percutaneous Approach (ICD-10-PCS; principal; 2024-09-26)
DX: I77.6 Arteritis, unspecified (principal); R42 Dizziness and giddiness; K52.9 Noninfective gastroenteritis and colitis, unspecified; R11.0 Nausea; I10 Essential (primary) hypertension
CPT/HCPCS: 36415; 70450-TC; 70460-TC; 70498-TC; 71046-TC-FY; 80048; 80053; 83735; 84100; 84484; 85025; 85610; 85730; 86803; 87389; 93005; 93010; 96374; 99285-25; G0378; Q9967

== ENCOUNTER 2025-06-02 10:07 | Emergency (ER) | payer OTHER ==
[2025-06-02 10:15] VITALS: BP 137/87; PULSE 67; RESP 16; TEMP 98; BMI 30.7
[2025-06-02] MEDS ORDERED: KETOROLAC TROMETHAMINE 15 MG/ML VIAL ONE (11:18)
[2025-06-02] MEDS ORDERED: ACETAMINOPHEN 325 MG TABLET (FP) ONE (11:18)
[2025-06-02] MEDS: ACETAMINOPHEN 325 MG TABLET (FP) PO ONE (11:26)
[2025-06-02] MEDS: KETOROLAC TROMETHAMINE 15 MG/ML VIAL IM ONE (11:26)
[2025-06-02] MEDS: SODIUM CHLORIDE FOR INHALATION 3 ML VIAL.NEB IH ONE (11:32)
== END 2025-06-02 13:31 | disposition home or self-care (01) ==
LOC: JER 10:07 → JERFT 10:07
PROC: 3E0233Z Introduction of Anti-inflammatory into Muscle, Percutaneous Approach (ICD-10-PCS; principal; 2025-06-02)
DX: R50.9 Fever, unspecified (principal); R05.9 Cough, unspecified; M79.10 Myalgia, unspecified site; J06.9 Acute upper respiratory infection, unspecified; R09.81 Nasal congestion; R09.3 Abnormal sputum; J02.9 Acute pharyngitis, unspecified
CPT/HCPCS: 71046-TC-FY; 87637-QW; 96372; 99284-25